=== PATIENT | male | born 1955 | race Caucasian/White ===

== ENCOUNTER → 2021-05-06 | Outpatient (BNVA) | payer BC, SELFPAY | END | disposition home or self-care (01) | PROVIDERS: PCP Family Medicine; Visit Provider Urology | DX: I10 Essential (primary) hypertension (principal) ==

== ENCOUNTER → 2024-07-26 | Outpatient (CLI) | payer MEDICARE, BC, SELFPAY ==
[2024-07-26 16:35] LABS: Basophils % (Auto) 1 % (0-2.5); Eosinophils # (Auto) 0.3 Thou/mm3 (0.0-0.5); Eosinophils % (Auto) 6 % (0-10); Hematocrit 37.2 % (41.0-53.0); Hemoglobin 12.5 g/dL (13.5-16.0); Immature Granulocytes % (Auto) 0 % (0-0); Immature Granulocytes Auto 0.02 Thou/mm3 (0.00-0.00); Lymphocytes # (Auto) 0.9 Thou/mm3 (1.0-4.8); Lymphocytes % (Auto) 16 % (10-50); Mean Corpuscular HGB Conc 33.6 g/dl (31.0-37.0); Mean Corpuscular Hemoglobin 30.6 pg (25.0-35.0); Mean Corpuscular Volume 91 fL (80-100); Monocytes # (Auto) 0.5 Thou/mm3 (0.0-0.8); Monocytes % (Auto) 9 % (0-12); Neutrophils # (Auto) 3.6 Thou/mm3 (1.8-7.7); Neutrophils % (Auto) 68 % (37-80); Nucleated Red Blood Cell % 0 /100 WBC (0); Platelet Count 210 Thou/mm3 (140-440); Red Blood Count 4.09 Miln/mm3 (4.50-5.90); White Blood Count 5.3 Thou/mm3 (3.8-10.6)
[2024-07-26 16:44] LABS: Prostate Specific Antigen 2.05 ng/mL (0-4.00)
[2024-07-26 16:46] LABS: Alanine Aminotransferase 21 U/L (10-49); Albumin, Serum 4.8 gm/dL (3.4-4.8); Albumin/Globulin Ratio 2.4 (1.2-2.2); Alkaline Phosphatase 151 U/L (46-116); Anion Gap 6 (7-16); Aspartate Amino Transferase 17 U/L (0-34); BUN/Creatinine Ratio 21 Ratio (12-20); Bilirubin,Total 0.8 mg/dL (0.3-1.2); Blood Urea Nitrogen 23 mg/dL (9-23); Calcium 9.8 mg/dL (8.3-10.6); Calcium (Corrected) 9.8 mg/dL (8.5-10.1); Carbon Dioxide 25.2 mMol/L (20.0-31.0); Chloride 107 mMol/L (98-107); Creatinine (Component) 1.1 mg/dL (0.6-1.3); Glucose 102 mg/dL (74-106); Osmolality,Calculated 279 (275-295); Sodium 138 mMol/L (136-145); Total Protein 6.8 gm/dL (5.7-8.2); eGFR > 60 See Note
== END | disposition home or self-care (01) ==
LOC: SCTO 15:18
PROVIDERS: PCP Family Medicine; Referring Provider Nurse Practitioner Family; Visit Provider Nurse Practitioner Family
DX: C61 Malignant neoplasm of prostate (principal)
CPT/HCPCS: 36415; 80053; 84153; 85025

== ENCOUNTER 2024-08-01 13:07 | Outpatient (RCR) | payer MEDICARE, BC, SELFPAY | END 2024-08-11 23:59 | disposition home or self-care (01) | LOC: SCTC 13:07 | PROVIDERS: PCP Family Medicine; Referring Provider Family Medicine; Visit Provider Nurse Practitioner Family | DX: Z51.11 Encounter for antineoplastic chemotherapy (principal); C61 Malignant neoplasm of prostate; R97.21 Rising PSA following treatment for malignant neoplasm of prostate; R59.0 Localized enlarged lymph nodes; Z92.3 Personal history of irradiation; Z90.79 Acquired absence of other genital organ(s); E11.9 Type 2 diabetes mellitus without complications; Z93.2 Ileostomy status; R93.7 Abnormal findings on diagnostic imaging of other parts of musculoskeletal system | CPT/HCPCS: 96372; 96402; 99212; J0897; J9217; G0463 ==

== ENCOUNTER → 2024-08-29 | Outpatient (CLI) | payer MEDICARE, SELFPAY ==
[2024-08-29 10:12] LABS: Basophils % (Auto) 1 % (0-2.5); Eosinophils # (Auto) 0.1 Thou/mm3 (0.0-0.5); Eosinophils % (Auto) 4 % (0-10); Hematocrit 37.2 % (41.0-53.0); Hemoglobin 12.6 g/dL (13.5-16.0); Immature Granulocytes % (Auto) 1 % (0-0); Immature Granulocytes Auto 0.02 Thou/mm3 (0.00-0.00); Lymphocytes # (Auto) 0.5 Thou/mm3 (1.0-4.8); Lymphocytes % (Auto) 15 % (10-50); Mean Corpuscular HGB Conc 33.9 g/dl (31.0-37.0); Mean Corpuscular Hemoglobin 29.9 pg (25.0-35.0); Mean Corpuscular Volume 88 fL (80-100); Monocytes # (Auto) 0.3 Thou/mm3 (0.0-0.8); Monocytes % (Auto) 10 % (0-12); Neutrophils # (Auto) 2.4 Thou/mm3 (1.8-7.7); Neutrophils % (Auto) 70 % (37-80); Nucleated Red Blood Cell % 0 /100 WBC (0); Platelet Count 195 Thou/mm3 (140-440); RDW Standard Deviation 43.8 fL (35.1-43.9); Red Blood Count 4.22 Miln/mm3 (4.50-5.90); White Blood Count 3.4 Thou/mm3 (3.8-10.6)
[2024-08-29 10:31] LABS: Prostate Specific Antigen 1.04 ng/mL (0-4.00)
[2024-08-29 10:35] LABS: Alanine Aminotransferase 18 U/L (10-49); Albumin, Serum 4.7 gm/dL (3.4-4.8); Albumin/Globulin Ratio 2.4 (1.2-2.2); Alkaline Phosphatase 158 U/L (46-116); Anion Gap 6 (7-16); Aspartate Amino Transferase 19 U/L (0-34); BUN/Creatinine Ratio 28 Ratio (12-20); Blood Urea Nitrogen 28 mg/dL (9-23); Carbon Dioxide 29.1 mMol/L (20.0-31.0); Chloride 103 mMol/L (98-107); Glucose 116 mg/dL (74-106); Osmolality,Calculated 282 (275-295); Potassium 4.4 mMol/L (3.4-5.1); Sodium 138 mMol/L (136-145); Total Protein 6.7 gm/dL (5.7-8.2); eGFR > 60 See Note
== END | disposition home or self-care (01) ==
PROVIDERS: PCP Family Medicine; Referring Provider Nurse Practitioner Family; Visit Provider Nurse Practitioner Family
DX: C61 Malignant neoplasm of prostate (principal)
CPT/HCPCS: 36415; 80053; 84153; 85025

== ENCOUNTER 2024-09-04 08:05 | Outpatient (RCR) | payer MEDICARE, SELFPAY ==
--- NOTE | 2024-08-13 14:19 | CTCFLWUP_ITS ---
[facility] [address] [place], [place] [address] FOLLOW-UP NOTE Date: 08/13/2024 MR#: [id number] Name: TAWANDA RUBIN : 1955 Dx: C61 Malignant neoplasm of prostate Identification. Patient with metastatic high-grade prostate CA with intra-abdominal adenopathy Underwent prostatectomy 05/04/2021 and postop XRT 12/21/2021 through 02/11/2022 1640 centigray. Currently on Xtandi and off Lupron. Most recent PSA was 2.05 on 07/26/2024 Recent imaging studies including bone scan PET scan 06/28/2024 and most recently 07/30/2024 MRI of T- spine shows significant T1 and in particular T3 involvement. Patient is having pain across the shoulder blades. Discussed with patient about radiation therapy to the site side effects discussed consent signed. 30 00 cGy to T1-T3 will be planned. Electronically signed by: Claudio Saldaña M.D. 08/13/2024 2:17 PM
--- NOTE | 2024-08-13 14:20 | CTCTXPLN_ITS ---
[facility] [place] [address] [place], [place] [address] Physician Clinical Treatment Planning Note Date of Service: 08/13/2024 Name: TAWANDA RUBIN : 1955 The patient has agreed to proceed with Radiation therapy. Tests and supporting medical records were interpreted to assist in defining the tumor location and extent of disease. Further imaging will be necessary to contour and delineate the volume to which the XRT will be provided. A. Treatment Intent: Palliative B. Modality: 6 MV C. Requested Technique: VMAT D. Treatment Site: T1-T3 E. Critical structures to be contoured on plan: F. In order to accomplish this plan, I am ordering/Prescribing the followin. Simulations (s) will be performed to accomplish a reproducible treatment position, to determine op timal treatment portals/beam arrangements, to design beam modifying devices and verify treatment port als on patient prior to the commencement of Radiation Therapy. T1-T3 2. Devices; for immobilization and beam shaping: Vac-Josh 3. CT Guidance for placement of XRT aparicio Scan area: 4. Portal images Frequency: 5. Invivo transit dose measurement once per week on all VMAT patients. 6. Special Physics Consult Requested for: 7. Other requests: G. Dose Objectives: Palliative Electronically signed by: Claudio Saldaña M.D. 08/13/2024 2:18 PM
--- NOTE | 2024-08-13 14:24 | CTCTXPLNST_ITS ---
1Radiation Oncology Treatment Planning Sheet Name: TAWANDA RUBIN MR#: [id number] : 1955 Dx: C61 Malignant neoplasm of prostate Date of Service: 08/13/2024 Account #: ?? Pt Treatment Intent: curative palliative other: Stage: Procedure CPT # Ordered Spec. Procedure 01943 Abbott Complex (set-up) 95866 C3- T7 (treating T1-T3) 1 Abbott Simple 40286 IMRT Plan 99782 1 MLC Devices VMAT 54330 3 Abbott 3 D 43555 TRTMT dev Complex 80285 vaklok 1 TRTMT dev simple 17036 Basic Marc 96406 6 Special Dosimetry 71955 Spec Physics 65370 Port Films 68477 SRS Cranial/1FX 46094 SBR 5 FX or Less /ex: 5 = 5 fx 20065 IMRT Simple 65088 3000 10 IMRT Complex 24430 IGRT 97506 8 Rad del com 6-10 64780 Rad del com 11- 37029 Cont Med Physics 99783 2 Treatment Planning 70550 1 Rad del com 20 mev 79165 Rad del inter 6-10 59415 Rad del inter 11 52914 Rad del simple 6-10 53400 Rad del simple 11- 51766 Special Port Plan 05165 TRTMT dev inter 92244 Isodose Complex 53076 Isodose simple 15074 Resp Motion Mgmt Simulation 40376 Placement of Fiducial Markers 05141 Electronically Signed By: Claudio Saldaña MD, DABR 08/13/2024 2:22 PM
--- NOTE | 2024-08-15 16:24 | CTCSNOTE_ITS ---
[facility] [address] [place], [place] [address] CT Simulation Note Date: 08/15/2024 MR# [id number] Name: TAWANDA RUBIN : 1955 (A) DIAGNOSIS: C61 Malignant neoplasm of prostate (B) Patient was placed in supine position and used aquaplast for immobilization purposes. (C) CT slices included c spine (D) VMAT Will be needed for maximum sparing of adjacent normal critical structures. (E) Patient tolerated the simulation well and left the room in good condition. Electronically signed by: Claudio Saldaña MD, CHARLIER 08/15/2024 4:22 PM
== END 2024-09-11 23:59 | disposition home or self-care (01) ==
LOC: SCTC 08:05
PROVIDERS: PCP Family Medicine; Referring Provider Family Medicine; Visit Provider Radiology Therapeutic Radiology
DX: Z51.0 Encounter for antineoplastic radiation therapy (principal); Z51.11 Encounter for antineoplastic chemotherapy; C61 Malignant neoplasm of prostate; C79.51 Secondary malignant neoplasm of bone; Z90.79 Acquired absence of other genital organ(s); Z93.2 Ileostomy status; Z79.818 Long term (current) use of other agents affecting estrogen receptors and estrogen levels
CPT/HCPCS: 77014; 77290; 77300; 77301; 77334; 77336; 77338; 77385; 96372; 96402; 99212; 99213; J0897; J9217; G0463

== ENCOUNTER → 2024-09-25 | Outpatient (BNVA) | payer MEDICARE, SELFPAY | END | disposition home or self-care (01) | PROVIDERS: PCP Family Medicine; Referring Provider Family Medicine; Visit Provider Urology | DX: C61 Malignant neoplasm of prostate (principal); C67.9 Malignant neoplasm of bladder, unspecified; Z92.3 Personal history of irradiation; E66.9 Obesity, unspecified; Z68.41 Body mass index [BMI] 40.0-44.9, adult; E78.00 Pure hypercholesterolemia, unspecified; E11.9 Type 2 diabetes mellitus without complications; Z86.73 Personal history of transient ischemic attack (TIA), and cerebral infarction without residual deficits; Z87.442 Personal history of urinary calculi | CPT/HCPCS: 99212; G0463 ==

== ENCOUNTER → 2024-09-25 | Outpatient (CLI) | payer MEDICARE, SELFPAY ==
[2024-09-25 13:41] LABS: Basophils % (Auto) 1 % (0-2.5); Eosinophils # (Auto) 0.2 Thou/mm3 (0.0-0.5); Eosinophils % (Auto) 4 % (0-10); Hematocrit 37.5 % (41.0-53.0); Hemoglobin 12.4 g/dL (13.5-16.0); Immature Granulocytes % (Auto) 1 % (0-0); Immature Granulocytes Auto 0.02 Thou/mm3 (0.00-0.00); Lymphocytes # (Auto) 0.6 Thou/mm3 (1.0-4.8); Lymphocytes % (Auto) 15 % (10-50); Mean Corpuscular HGB Conc 33.1 g/dl (31.0-37.0); Mean Corpuscular Hemoglobin 29.8 pg (25.0-35.0); Mean Corpuscular Volume 90 fL (80-100); Monocytes # (Auto) 0.4 Thou/mm3 (0.0-0.8); Monocytes % (Auto) 10 % (0-12); Neutrophils # (Auto) 2.7 Thou/mm3 (1.8-7.7); Neutrophils % (Auto) 69 % (37-80); Nucleated Red Blood Cell % 0 /100 WBC (0); Platelet Count 185 Thou/mm3 (140-440); RDW Standard Deviation 46.5 fL (35.1-43.9); Red Blood Count 4.16 Miln/mm3 (4.50-5.90)
[2024-09-25 14:00] LABS: Prostate Specific Antigen 0.53 ng/mL (0-4.00)
[2024-09-25 14:02] LABS: Alanine Aminotransferase 17 U/L (10-49); Albumin, Serum 4.6 gm/dL (3.4-4.8); Albumin/Globulin Ratio 2.2 (1.2-2.2); Alkaline Phosphatase 121 U/L (46-116); Anion Gap 7 (7-16); Aspartate Amino Transferase 19 U/L (0-34); BUN/Creatinine Ratio 22 Ratio (12-20); Blood Urea Nitrogen 22 mg/dL (9-23); Calcium 9.4 mg/dL (8.3-10.6); Calcium (Corrected) 9.4 mg/dL (8.5-10.1); Carbon Dioxide 29.1 mMol/L (20.0-31.0); Chloride 100 mMol/L (98-107); Globulin 2.1 gm/dL (2.3-3.5); Glucose 172 mg/dL (74-106); Osmolality,Calculated 279 (275-295); Potassium 4.7 mMol/L (3.4-5.1); Sodium 136 mMol/L (136-145); Total Protein 6.7 gm/dL (5.7-8.2); eGFR > 60 See Note
== END | disposition home or self-care (01) ==
PROVIDERS: PCP Family Medicine; Referring Provider Nurse Practitioner Family; Visit Provider Nurse Practitioner Family
DX: C61 Malignant neoplasm of prostate (principal); C79.51 Secondary malignant neoplasm of bone
CPT/HCPCS: 36415; 80053; 84153; 85025

== ENCOUNTER 2024-10-01 14:54 | Outpatient (RCR) | payer MEDICARE, SELFPAY ==
--- NOTE | 2024-09-19 10:33 | CTCTSUMM_ITS ---
[facility] [address] [place], [place] [address] Treatment Summary Date: 09/19/2024 MR#: [id number] Name: TAWANDA RUBIN : 1955 Dx: C61 Referring Physician: Melo Spears MD (A) Diagnosis: 12/17/2023 [ICD10] C61 Malignant neoplasm of prostate; [ICD10] C61 Malignant neoplasm o f prostate; [ICD10] C79.51 Secondary malignant neoplasm of bone (B) Aim of Treatment: Palliative (C) Concomitant Chemotherapy: No (D) Radiation Dates: Prior treatment to the pelvis postop 6840 cGy in February 2022 Additional ra diotherapy to upper thoracic area as follows 08/21/2024 through 09/04/2024 Treatment Prescription T1-T4 VMAT 10MV 3,000 cGy 10 300 cGy Approved (E) All aparicio were treated using customized MLC Blocks (F) Finding at Discharge: Patient seen for first follow-up on 09/19/2023. Has some residual pain but t olerated treatment generally well. (G) Discharge Instructions and F/U Appt was given: The patient was also advised to continue follow-up with Dr. Ochoa and primary care physician: Electronically signed by: Claudio Saldaña MD, AWILDA 09/19/2024 10:31 AM
== END 2024-10-12 23:59 | disposition home or self-care (01) ==
LOC: SCTC 14:54
PROVIDERS: PCP Family Medicine; Referring Provider Family Medicine; Visit Provider Nurse Practitioner Family
DX: Z51.11 Encounter for antineoplastic chemotherapy (principal); C61 Malignant neoplasm of prostate; C79.51 Secondary malignant neoplasm of bone; Z92.3 Personal history of irradiation; Z79.818 Long term (current) use of other agents affecting estrogen receptors and estrogen levels; Z90.79 Acquired absence of other genital organ(s); Z93.2 Ileostomy status; M54.9 Dorsalgia, unspecified
CPT/HCPCS: 96372; 96402; 99212; J0897; J9217; G0463

== ENCOUNTER → 2024-10-18 | Outpatient (CLI) | payer MEDICARE, SELFPAY ==
--- NOTE | 2024-10-18 10:52 | XR_ITS ---
Examination: Right femur 2 views Technique one AP lateral right femur 2 views Exam date and time: October 18, 2024 1234 hours INDICATIONS: Right femur pain several weeks. FINDINGS: Total right hip arthroplasty. Satisfactory alignment Shaft of the femur intact Extensive dystrophic ossification lateral to the right hip joint IMPRESSION: Extensive dystrophic ossification lateral to the right hip joint
[2024-10-18 13:49] LABS: Basophils % (Auto) 1 % (0-2.5); Eosinophils # (Auto) 0.2 Thou/mm3 (0.0-0.5); Eosinophils % (Auto) 4 % (0-10); Hematocrit 37.4 % (41.0-53.0); Hemoglobin 12.5 g/dL (13.5-16.0); Immature Granulocytes % (Auto) 0 % (0-0); Immature Granulocytes Auto 0.02 Thou/mm3 (0.00-0.00); Lymphocytes # (Auto) 0.5 Thou/mm3 (1.0-4.8); Lymphocytes % (Auto) 12 % (10-50); Mean Corpuscular HGB Conc 33.4 g/dl (31.0-37.0); Mean Corpuscular Hemoglobin 30.1 pg (25.0-35.0); Mean Corpuscular Volume 90 fL (80-100); Monocytes # (Auto) 0.6 Thou/mm3 (0.0-0.8); Monocytes % (Auto) 13 % (0-12); Neutrophils # (Auto) 3.2 Thou/mm3 (1.8-7.7); Neutrophils % (Auto) 70 % (37-80); Nucleated Red Blood Cell % 0 /100 WBC (0); Platelet Count 214 Thou/mm3 (140-440); RDW Standard Deviation 48.7 fL (35.1-43.9); Red Blood Count 4.15 Miln/mm3 (4.50-5.90); White Blood Count 4.5 Thou/mm3 (3.8-10.6)
[2024-10-18 13:59] LABS: B-Type Natriuretic Peptide 48 pg/mL (0-100)
[2024-10-18 14:06] LABS: Alanine Aminotransferase 20 U/L (10-49); Albumin, Serum 4.5 gm/dL (3.4-4.8); Albumin/Globulin Ratio 2.3 (1.2-2.2); Alkaline Phosphatase 117 U/L (46-116); Anion Gap 7 (7-16); Aspartate Amino Transferase 19 U/L (0-34); BUN/Creatinine Ratio 31 Ratio (12-20); Bilirubin,Total 0.9 mg/dL (0.3-1.2); Blood Urea Nitrogen 28 mg/dL (9-23); Calcium 9.6 mg/dL (8.3-10.6); Calcium (Corrected) 9.6 mg/dL (8.5-10.1); Carbon Dioxide 30.4 mMol/L (20.0-31.0); Chloride 102 mMol/L (98-107); Creatinine (Component) 0.9 mg/dL (0.6-1.3); Glucose 94 mg/dL (74-106); Osmolality,Calculated 283 (275-295); Potassium 4.6 mMol/L (3.4-5.1); Sodium 139 mMol/L (136-145); Total Protein 6.5 gm/dL (5.7-8.2); eGFR > 60 See Note
[2024-10-18 14:20] LABS: D-Dimer 408 ng/mL (<600)
== END | disposition home or self-care (01) ==
LOC: CDIM 10:38 → COPL 12:45
PROVIDERS: PCP Family Medicine; Referring Provider Nurse Practitioner Family; Visit Provider Radiology Diagnostic Radiology
DX: M25.851 Other specified joint disorders, right hip (principal); M79.651 Pain in right thigh
CPT/HCPCS: 36415; 73552; 80053; 83880; 85025; 85379

== ENCOUNTER → 2024-10-30 | Outpatient (CLI) | payer MEDICARE, BC, SELFPAY ==
[2024-10-30 15:40] LABS: Basophils % (Auto) 1 % (0-2.5); Eosinophils # (Auto) 0.3 Thou/mm3 (0.0-0.5); Eosinophils % (Auto) 5 % (0-10); Hematocrit 36.1 % (41.0-53.0); Hemoglobin 12.2 g/dL (13.5-16.0); Immature Granulocytes % (Auto) 0 % (0-0); Immature Granulocytes Auto 0.02 Thou/mm3 (0.00-0.00); Lymphocytes # (Auto) 0.6 Thou/mm3 (1.0-4.8); Lymphocytes % (Auto) 11 % (10-50); Mean Corpuscular HGB Conc 33.8 g/dl (31.0-37.0); Mean Corpuscular Hemoglobin 30.3 pg (25.0-35.0); Mean Corpuscular Volume 90 fL (80-100); Monocytes # (Auto) 0.7 Thou/mm3 (0.0-0.8); Monocytes % (Auto) 13 % (0-12); Neutrophils # (Auto) 3.7 Thou/mm3 (1.8-7.7); Neutrophils % (Auto) 70 % (37-80); Nucleated Red Blood Cell % 0 /100 WBC (0); Platelet Count 226 Thou/mm3 (140-440); RDW Standard Deviation 48.7 fL (35.1-43.9); Red Blood Count 4.03 Miln/mm3 (4.50-5.90); White Blood Count 5.3 Thou/mm3 (3.8-10.6)
[2024-10-30 15:54] LABS: Alanine Aminotransferase 18 U/L (10-49); Albumin, Serum 4.4 gm/dL (3.4-4.8); Albumin/Globulin Ratio 2.2 (1.2-2.2); Alkaline Phosphatase 125 U/L (46-116); Anion Gap 8 (7-16); Aspartate Amino Transferase 21 U/L (0-34); BUN/Creatinine Ratio 29 Ratio (12-20); Bilirubin,Total 0.8 mg/dL (0.3-1.2); Blood Urea Nitrogen 29 mg/dL (9-23); Calcium 9.7 mg/dL (8.3-10.6); Calcium (Corrected) 9.7 mg/dL (8.5-10.1); Carbon Dioxide 29.9 mMol/L (20.0-31.0); Chloride 102 mMol/L (98-107); Glucose 111 mg/dL (74-106); Osmolality,Calculated 286 (275-295); Potassium 4.4 mMol/L (3.4-5.1); Sodium 140 mMol/L (136-145); Total Protein 6.4 gm/dL (5.7-8.2); eGFR > 60 See Note
[2024-10-30 15:59] LABS: Ferritin 110 ng/mL (10.5-307.3); Prostate Specific Antigen 0.26 ng/mL (0-4.00); Total Iron Binding Capacity 304 mcg/dL (250-425)
[2024-10-30 16:01] LABS: AFP Non-Pregnant < 1.30 ng/mL (<8.10); Carcinoembryonic Antigen < 0.5 ng/mL (0.0-5.0); Folate 13.92 ng/mL (>5.38); Vitamin B12 283 pg/mL (211-911)
[2024-10-30 16:09] LABS: Iron 53 mcg/dL (65-175); Percent Iron Saturation 17 % (20-55); Unsaturated Iron Binding 251 (225-295)
== END | disposition home or self-care (01) ==
LOC: COPL 14:17
PROVIDERS: PCP Family Medicine; Referring Provider Nurse Practitioner Family; Visit Provider Nurse Practitioner Family
DX: M79.651 Pain in right thigh (principal); C67.9 Malignant neoplasm of bladder, unspecified; C61 Malignant neoplasm of prostate; C79.51 Secondary malignant neoplasm of bone
CPT/HCPCS: 36415; 80053; 82105; 82378; 82607; 82728; 82746; 83540; 83550; 84153; 85025

== ENCOUNTER 2024-11-01 08:36 | Outpatient (RCR) | payer MEDICARE, BC, SELFPAY | END 2024-11-09 23:59 | disposition home or self-care (01) | LOC: SCTC 08:36 | PROVIDERS: PCP Family Medicine; Referring Provider Family Medicine; Visit Provider Nurse Practitioner Family | DX: Z51.11 Encounter for antineoplastic chemotherapy (principal); C61 Malignant neoplasm of prostate; C79.51 Secondary malignant neoplasm of bone; Z90.79 Acquired absence of other genital organ(s); Z79.818 Long term (current) use of other agents affecting estrogen receptors and estrogen levels; M25.551 Pain in right hip; Z96.641 Presence of right artificial hip joint | CPT/HCPCS: 96402; 99212; J9217; G0463 ==

== ENCOUNTER → 2024-11-20 | Outpatient (CLI) | payer MEDICARE, BC, SELFPAY ==
--- NOTE | 2024-11-20 12:30 | XR_ITS ---
Examination: Bone scan whole body, radioisotope Date and time of exam: November 20, 2024 1220 hrs. Comparison 05/16/2024 Indications: Diagnosis malignant neoplasm prostate Technique: Study has been performed with intravenous administration of 23.3 mci 99M technetium MDP. Anterior, posterior whole body images are obtained. Images have been obtained including the lower extremities. Findings: Again noted increased isotope accumulation T3 Isotope accumulation otherwise symmetrical Impression: Increased isotope accumulation T3 again noted
== END | disposition home or self-care (01) ==
PROVIDERS: PCP Family Medicine; Referring Provider Nurse Practitioner Family; Visit Provider Nurse Practitioner Family
DX: R93.7 Abnormal findings on diagnostic imaging of other parts of musculoskeletal system (principal); C61 Malignant neoplasm of prostate; C79.51 Secondary malignant neoplasm of bone
CPT/HCPCS: 78306; A9503

== ENCOUNTER → 2024-11-29 | Outpatient (CLI) | payer MEDICARE, BC, SELFPAY ==
[2024-11-29 12:07] LABS: Basophils % (Auto) 1 % (0-2.5); Eosinophils # (Auto) 0.3 Thou/mm3 (0.0-0.5); Eosinophils % (Auto) 6 % (0-10); Hematocrit 35.8 % (41.0-53.0); Hemoglobin 11.9 g/dL (13.5-16.0); Immature Granulocytes % (Auto) 0 % (0-0); Lymphocytes # (Auto) 0.5 Thou/mm3 (1.0-4.8); Lymphocytes % (Auto) 9 % (10-50); Mean Corpuscular HGB Conc 33.2 g/dl (31.0-37.0); Mean Corpuscular Hemoglobin 30.3 pg (25.0-35.0); Mean Corpuscular Volume 91 fL (80-100); Monocytes # (Auto) 0.7 Thou/mm3 (0.0-0.8); Monocytes % (Auto) 13 % (0-12); Neutrophils # (Auto) 3.8 Thou/mm3 (1.8-7.7); Neutrophils % (Auto) 72 % (37-80); Nucleated Red Blood Cell % 0 /100 WBC (0); Platelet Count 222 Thou/mm3 (140-440); RDW Standard Deviation 48.2 fL (35.1-43.9); Red Blood Count 3.93 Miln/mm3 (4.50-5.90); White Blood Count 5.3 Thou/mm3 (3.8-10.6)
[2024-11-29 12:33] LABS: Glucose Estimated Average 131 mg/dL (80-131); Hemoglobin A1C 6.2 % Hgb (4.8-6.0)
[2024-11-29 12:39] LABS: Ferritin 119 ng/mL (10.5-307.3); Iron 43 mcg/dL (65-175); Percent Iron Saturation 14 % (20-55); Prostate Specific Antigen 0.23 ng/mL (0-4.00); Total Iron Binding Capacity 295 mcg/dL (250-425); Unsaturated Iron Binding 252 (225-295)
[2024-11-29 12:40] LABS: Folate 14.88 ng/mL (>5.38); Vitamin B12 265 pg/mL (211-911)
[2024-11-29 12:45] LABS: Alanine Aminotransferase 18 U/L (10-49); Albumin, Serum 4.5 gm/dL (3.4-4.8); Alkaline Phosphatase 107 U/L (46-116); Anion Gap 9 (7-16); Aspartate Amino Transferase 21 U/L (0-34); BUN/Creatinine Ratio 25 Ratio (12-20); Bilirubin,Total 0.8 mg/dL (0.3-1.2); Blood Urea Nitrogen 25 mg/dL (9-23); Calcium 9.9 mg/dL (8.3-10.6); Calcium (Corrected) 9.9 mg/dL (8.5-10.1); Chloride 101 mMol/L (98-107); Globulin 2.2 gm/dL (2.3-3.5); Glucose 107 mg/dL (74-106); Osmolality,Calculated 280 (275-295); Potassium 3.9 mMol/L (3.4-5.1); Sodium 138 mMol/L (136-145); Total Protein 6.7 gm/dL (5.7-8.2); eGFR > 60 See Note
== END | disposition home or self-care (01) ==
LOC: SCTO 11:28
PROVIDERS: PCP Family Medicine; Referring Provider Nurse Practitioner Family; Visit Provider Nurse Practitioner Family
DX: C61 Malignant neoplasm of prostate (principal); C79.51 Secondary malignant neoplasm of bone; E11.9 Type 2 diabetes mellitus without complications
CPT/HCPCS: 36415; 80053; 82607; 82728; 82746; 83036; 83540; 83550; 84153; 85025

== ENCOUNTER → 2024-12-03 | Outpatient (CLI) | payer MEDICARE, BC, SELFPAY ==
--- NOTE | 2024-12-03 13:00 | XR_ITS ---
Examination: MRI right femur, without contrast Date and time of exam: December 03, 2024 at 1258 hours INDICATIONS: Diagnosis malignant neoplasm prostate, numbness pain and paresthesias in the right thigh, painful to touch, positive nuclear medicine bone scan on November 20, 2024 Technique: Multiple axial sagittal and coronal images of the right femur have been obtained with the Siemens high-resolution 1.5 Henny MRI scanner. Images obtained include T2-weighted fat-suppressed sagittal sections, TR 3500, TE 46, T2 weighted coronal fat suppressed images, TR 3050, TE 84, T2-weighted transverse fat suppressed images, TR 3260, TE 63, proton density transverse images, TR 4720 TE 46, and T1 weighted coronal images, TR 560, TE 13. Findings: No john cortical bone destruction or permeative soft tissue mass No soft tissue mass in the muscles or subcutaneous fatty tissue Magnetic susceptibility artifact secondary to the right hip arthroplasty IMPRESSION: No findings diagnostic for osseous metastatic disease, however, recommend repeating this study post intravenous contrast
[2024-12-03 13:12] VITALS: PULSE 84; RESP 20; O2SAT 94
[2024-12-03 13:15] VITALS: BP 110/82; PULSE 84; RESP 20; O2SAT 94
[2024-12-03 13:20] VITALS: BP 99/50; PULSE 84; RESP 20; O2SAT 92
[2024-12-03 13:25] VITALS: PULSE 84
--- NOTE | 2024-12-03 13:27 | PC.NURSE ---
1312 patient scheduled for MRI rt lower extremity and has pacemaker, will monitor patient in MRI
[2024-12-03 13:30] VITALS: PULSE 84
--- NOTE | 2024-12-03 13:37 | PC.NURSE ---
1331 report given to Jana CASTILLO to monitor patient for the rest of the procedure. HR 84
[2024-12-03 13:43] VITALS: BP 110/54; PULSE 85; RESP 18; O2SAT 98
== END | disposition home or self-care (01) ==
PROVIDERS: PCP Nurse Practitioner Family; Referring Provider Nurse Practitioner Family; Visit Provider Nurse Practitioner Family
DX: M61.451 Other calcification of muscle, right thigh (principal); M79.651 Pain in right thigh
CPT/HCPCS: 73718

== ENCOUNTER 2024-12-04 08:26 | Outpatient (RCR) | payer MEDICARE, BC, SELFPAY ==
--- NOTE | 2024-11-13 08:53 | CTCFLWUP_ITS ---
[facility] [address] [place], [place] [address] FOLLOW-UP NOTE Date: 11/13/2024 MR#: [id number] Name: TAWANDA RUBIN : 1955 Dx: C61 Malignant neoplasm of prostate Identification. Patient with metastatic high-grade prostate CA with intra- abdominal adenopathy. Underwent prostatectomy 05/04/2021 and postop XRT 12/21/2021 through 02/11/2022 6480 cGy Currently on Lupron. Xtandi Xgeva.. 07/30/2024 MRI showed met disease T1-T3 Additional radiotherapy was given upper T-spine 3000 cGy completed 09/04/2024. Most recent PSA 10/30/2024 0.26. Using only occasional opioids because of concern about side effects particularly constipation. Having pain in the right hip femur region. Bone scan pending. Show reeval patient in about 3 months. Electronically signed by: Claudio Saldaña M.D. 11/13/2024 8:50 AM
--- NOTE | 2024-12-04 02:08 | CTCFLWUP_ITS ---
Patient: TAWANDA ANTONIO : 1955 Page 7 of 7 FOLLOW UP NOTE DATE OF SERVICE: 12/03/2024 NAME: TAWANDA ANTONIO ACCOUNT: [id number] : 1955 AGE: 68 INTERVAL HISTORY: c/o fatigue . also pain over known T3 area and hip . tolerating treatment well . ONCOLOGY HISTORY: 08/22/2024: patient restarted Xtandi on 08/02/2024. Patient received Xgeva on 08/01/2024. Currently on monthly Lupron injections as well. Patient started radiation to T1 T3 today. Only complaint is feeling tired. Patient reports good appetite. INTERVAL HISTORY: PET/CT done on 06/28/2024 showed osseous metastatic disease involving the entire T3 vertebral body. Patient reports his back feels ?achy? denies numbness to the legs or radiating pain. 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 HISTORY: Tawanda Antonio is a 68-year-old ENG speaking male with history of diabetes, hyperlipidemia has the following oncology history. 02/27/2019: PSA 0.6. 07/22/2020: PSA 5.76. 12/16/2020: Prostate biopsy was performed for elevated PSA of 5.6. Biopsy showed Shelbie grade 10 prostatic adenocarcinoma in multiple cores. 12/26/2020: Mr. Antonio had transurethral resection of the bladder and prostate tumor. 01/16/2021: PSA 14.11. 01/22/2021: Patient received Lupron 7.5 mg. He was also started on Casodex. 02/23/2021: Patient received 7.5 mg Lupron again. 02/16/2021: Bone scan? 03/25/2021: Patient received third dose of Lupron 7.5 mg IM. 05/04/2021: Mr. Antonio underwent robotic radical cystoscopy prostatectomy with pelvic lymph node dissection and intracorporeal ileal conduit placement. it was staged as YPT4N1 disease. PSA trend: 03/23/2021: PSA less than 0.10. 06/15/2021: PSA less than 0.10. 07/27/2021: PSA 0.11. 10/21/2021: PSA 0.85. 10/14/2021: Urogram CT? 11/19/2021: PSA 1.66. 12/11/2021: Bone scan? 12/21/2021: Mr. Antonio is started on radiation therapy to the prostate bed. 01/29/2022: PSA 9.52. 02/11/2022: Patient completed radiation therapy to the prostate bed. He received 6840 cGy radiation therapy in 38 fractions. 05/13/2022: PSA 29.17. 06/10/2022: Bone scan? 06/11/2022: PET/CT scan? 06/15/2022: PSA 26.70. 06/17/2022: CT scan of the abdomen and pelvis with IV contrast? 06/21/2022: Mr. Antonio stopped taking Xtandi 160 mg p.o. daily in addition to Lupron. 08/09/2022: PSA 0.31 09/02/2022: PSA less than 0.10. 12/31/2022: PSA less than 0.10. 06/02/2023: PSA less than 0.10 09/01/2023: PET/CT 10/24/2023: Chest x-ray 10/24/2023: PSA less than 0.10 02/03/2024: PSA 0.19 06/20/2024: PSA 1.42 06/28/2024: PET/CT-osseous metastatic disease involving the entire T3 vertebral body 11/20/2024 bone scan --Increased isotope accumulation T3 again noted MRI DIAGNOSIS: Metastatic (M1a) high-grade prostate cancer with intra-abdominal lymphadenopathy (06/17/2022). S/p prostatectomy (05/04/2021) S/p radiation therapy to the prostate bed (12/21/2021 - 02/11/2022) S/p ileostomy. Currently on monthly Lupron Was on Xtandi along with Lupron since (06/2022-09/2023). DATE OF DIAGNOSIS: 12/16/2020 STAGE/TNM: [id number] (05/05/2021) TREATMENT HISTORY: Care?Plan Start?Date Cycle Day Intent Lupron?22.5?mg?q?3?mon 06/21/2022 1 90 Palliative Lupron?7.5?mg 06/21/2022 1 30 Palliative Xgeva?120?mg?q?monthly?for?3?months,?followed?by?q?3?months 07/19/2024 1 90 Palliative Lupron?7.5?mg 06/26/2024 1 30 Palliative HISTORY OF PRESENT ILLNESS: OTHER MEDICAL HISTORY/CONDITIONS: Diabetes type 2 FAMILY HISTORY: SOCIAL HISTORY: MEDICATIONS: 1. atorvastatin - 40 mg Daily 2. Citracal + D Slow Release - 600 mg-12.5 mcg (500 unit) 1 tab one tab po twice a day 3. gabapentin - 300 mg 2 Capsule Twice a Day 4. HYDROcodone-acetaminophen - 10-325 mg 1 tab q8 5. Lasix - 20 mg 1 tab As needed 6. ondansetron - 8 mg 1 tab twice a day 7. PROzac - 20 mg 1 Capsule Daily 8. traZODone - 50 mg 1 tab Twice a Day 9. Xtandi - 40 mg 4 Capsule Daily 10. Xtandi - 40 mg 4 tab Daily Medications Last Reconciled by Cari Adams MA on 12/03/2024 ALLERGIES: [id number] REVIEW OF SYSTEMS: A complete 14-point review of systems was performed and is negative except as noted in interval history. PHYSICAL EXAMINATION: VITAL SIGNS: Temperature?98.2, B/P?134/79, Oxygen?Saturation?93% Weight?302?lbs (Change?since?11/13/24:?-9?lbs) PAIN: 3 - Between mild and moderate pain ECOG Performance Status: 2 - Symptomatic; ambulatory; capable of self-care; >50% of waking hrs. not in bed GENERAL APPEARANCE: Appears well, in no apparent distress, appropriately interactive. HEENT: Normocephalic, normal conjunctiva, normal hearing, lips without lesions, CARDIOVASCULAR: Patient has a pacemaker. PULMONARY: Normal respiratory effort, no respiratory distress or use of accessory muscles, speaking in full sentences, no tachypnea. EXTREMITIES: No cyanosis. SKIN: Normal skin appearance. NEUROLOGIC: Alert and ORIENTED x4. PSHYCHIATRIC: Appropriate affect, mood normal, behavior normal, intact thought and speech. LABORATORY DATA: I have personally reviewed and interpreted each of the patient?s relevant lab tests, abnormal findings are below: Date 10/30/24 11/29/24 ??WHITE?BLOOD?COUNT?(Thou/mm3) ? 5.3 ??RED?BLOOD?COUNT?(Miln/mm3) ? 3.93?L ??HEMOGLOBIN?(gm/dl) ? 11.9?L ??HEMATOCRIT?(%) ? 35.8?L ??PLATELET?COUNT?(Thou/mm3) ? 222 ??NEUTROPHILS?%,?AUTO?(%) ? 72 ??LYMPH?%,?AUTO?(%) ? 9?L ??NEUTROPHILS,?AUTO?(Thou/mm3) ? 3.8 ??GLUCOSE,RANDOM?(mg/dL) 111?H 107?H ??BLOOD?UREA?NITROGEN?(mg/dL) 29?H 25?H ??CREATININE?(mg/dL) 1.00 1.00 ??SODIUM?(mmol/L) 140 138 ??POTASSIUM?(mmol/L) 4.4 3.9 ??CHLORIDE?(mmol/L) 102 101 ??CrCl?(CandG)?(ml/min) 103.87 103.87 ??AST/SGOT?(Unit/L) 21 21 ??ALT/SGPT?(Unit/L) 18 18 ??ALKALINE?PHOSPHATASE?(Unit/L) 125?H 107 ??BILIRUBIN,?TOTAL?(mg/dL) 0.8 0.8 ??PROTEIN?TOTAL?(gm/dl) 6.4 6.7 ??ALBUMIN,?SERUM?(gm/dl) 4.4 4.5 ??GLOBULIN?(gm/dl) 2.0?L 2.2?L ??ALBUMIN/GLOBULIN?RATIO 2.2 2.0 ??CALCIUM,?SERUM?(mg/dL) 9.7 9.9 ??CALCIUM?SERUM?(CORRECTED)?(mg/dL) 9.7 9.9 ??TOTAL?IRON?BINDING?CAP?(S*)?(mcg/dL) ? 295 ??UNBOUND?IBC?(mcg/dL) ? 252 ASSESSMENT/PLAN: 1. Metastatic (M1a) high-grade prostate cancer with intra-abdominal lymphadenopathy (06/17/2022). S/p prostatectomy (05/04/2021) Treated with neoadjuvant antihormonal therapy with Lupron and Casodex followed by radical prostatectomy as described above. Pathology showed YPT4N1 disease. S/p radiation therapy to the prostate bed (12/21/2021 - 02/11/2022) S/p ileostomy. Currently on monthly Lupron 7.5 mg IM Was on Xtandi along with Lupron since (06/2022-09/2023). Patient self discontinued Xtandi, reports he wanted a break. Restarted Xtandi 160 mg p.o. daily, 08/02/2024 MRI of spine showed osseous metastatic disease involving T1 and T3, no tumor impingement upon thoracic cord, 07/30/2024. Started radiation to T1 T3, (08/22/2024-), completed 10 radiation treatments, following up with Dr. Saldaña PSA 0.53, hemoglobin 12.4, 09/25/2024, PSA level is decreasing Patient taking Butler for pain, following up with Dr. Saldaña Patient recently complaining of right hip pain, history of osteoarthritis to right hip and right hip replacement. X-ray of right femur done 10/18/2024 showed extensive dysmorphic ossification lateral to the right hip joint, satisfactory alignment, total right hip arthroplasty. Last bone scan was done on 05/2024 showed uptake in T3 level. 12/03/2024 MRI is negative Continue Xtandi Continue on monthly Lupron. Continue Xgeva 120 mg subcutaneous every 3 months, started 08/01/2024. Continue Citracal p.o. 1 tablet twice a day Will do work up for fatigue B12 is very low even though patient takes oral supplement Will start b12 ORDERS: Order # Description [id number] + PSA [id number] Vitamin B-12 + Ferritin + Iron Panel + Folic Acid; Serum [id number] Comprehensive Metabolic Panel - 12 + CBC with Auto Diff [id number] MD Follow Up 2 Months RETURN TO CLINIC: 2 BILLING AND COMPLIANCE: I reviewed external records from providers outside my specialty as summarized above. I spent a total of 50 minutes on this patient?s care on the day of their visit excluding time spent related to any billed procedures. This time includes time spent with the patient as well as time spent documenting in the medical record, reviewing patients records and tests, obtaining history, placing orders, communicating with other healthcare professionals, counseling the patient, family or caregiver, and/or care coordination for the diagnoses above. Electronically Signed by: {Object.Sanct_ID*[email or web address]@M}, {Object.Sanct_ID*PnP.Suffix@U} D: {Object.Sanct_Date} T: {Object.Sanct_Time} CC: PCP: Ashley Foley Referring: Ashley Foley This document was completed utilizing speech recognition software. Grammatical errors, random word insertions, pronoun errors, and incomplete sentences are an occasional consequence of this system due to software limitations, ambient noise, and hardware issues. Any formal questions or concerns about the content, text or information contained within the body of this dictation should be directly addressed to the provider for clarification.
== END 2024-12-10 23:59 | disposition home or self-care (01) ==
LOC: SCTC 08:26
PROVIDERS: PCP Family Medicine; Referring Provider Family Medicine; Visit Provider Radiology Therapeutic Radiology
DX: Z51.11 Encounter for antineoplastic chemotherapy (principal); C61 Malignant neoplasm of prostate; C79.51 Secondary malignant neoplasm of bone; Z90.79 Acquired absence of other genital organ(s); Z92.3 Personal history of irradiation; M16.11 Unilateral primary osteoarthritis, right hip; Z96.641 Presence of right artificial hip joint; Z79.818 Long term (current) use of other agents affecting estrogen receptors and estrogen levels; E53.8 Deficiency of other specified B group vitamins; R59.0 Localized enlarged lymph nodes
CPT/HCPCS: 96368; 96372; 96402; 99212; 99213; J3420; J9217; G0463

== ENCOUNTER → 2024-12-25 | Outpatient (BNVA) | payer MEDICARE, BC, SELFPAY | END | disposition home or self-care (01) | PROVIDERS: PCP Family Medicine; Referring Provider Family Medicine; Visit Provider Urology | DX: C61 Malignant neoplasm of prostate (principal); E11.9 Type 2 diabetes mellitus without complications; I25.10 Atherosclerotic heart disease of native coronary artery without angina pectoris; Z95.5 Presence of coronary angioplasty implant and graft; E66.9 Obesity, unspecified; Z68.39 Body mass index [BMI] 39.0-39.9, adult; Z86.73 Personal history of transient ischemic attack (TIA), and cerebral infarction without residual deficits; I10 Essential (primary) hypertension; E78.00 Pure hypercholesterolemia, unspecified; Z87.442 Personal history of urinary calculi | CPT/HCPCS: 99212; G0463 ==

== ENCOUNTER → 2024-12-31 | Outpatient (CLI) | payer MEDICARE, BC, SELFPAY ==
[2024-12-31 13:48] LABS: Basophils # (Auto) 0.1 Thou/mm3 (0.0-0.2); Basophils % (Auto) 1 % (0-2.5); Eosinophils # (Auto) 0.3 Thou/mm3 (0.0-0.5); Eosinophils % (Auto) 7 % (0-10); Hematocrit 34.6 % (41.0-53.0); Hemoglobin 11.8 g/dL (13.5-16.0); Immature Granulocytes % (Auto) 0 % (0-0); Immature Granulocytes Auto 0.01 Thou/mm3 (0.00-0.00); Lymphocytes # (Auto) 0.5 Thou/mm3 (1.0-4.8); Lymphocytes % (Auto) 11 % (10-50); Mean Corpuscular HGB Conc 34.1 g/dl (31.0-37.0); Mean Corpuscular Hemoglobin 30.4 pg (25.0-35.0); Mean Corpuscular Volume 89 fL (80-100); Monocytes # (Auto) 0.6 Thou/mm3 (0.0-0.8); Monocytes % (Auto) 12 % (0-12); Neutrophils # (Auto) 3.2 Thou/mm3 (1.8-7.7); Neutrophils % (Auto) 68 % (37-80); Nucleated Red Blood Cell % 0 /100 WBC (0); Platelet Count 217 Thou/mm3 (140-440); RDW Standard Deviation 43.9 fL (35.1-43.9); Red Blood Count 3.88 Miln/mm3 (4.50-5.90); White Blood Count 4.7 Thou/mm3 (3.8-10.6)
[2024-12-31 13:58] LABS: Prostate Specific Antigen 0.22 ng/mL (0-4.00)
[2024-12-31 14:03] LABS: Alanine Aminotransferase 13 U/L (10-49); Albumin, Serum 4.3 gm/dL (3.4-4.8); Alkaline Phosphatase 99 U/L (46-116); Anion Gap 6 (7-16); Aspartate Amino Transferase 18 U/L (0-34); BUN/Creatinine Ratio 25 Ratio (12-20); Bilirubin,Total 0.7 mg/dL (0.3-1.2); Blood Urea Nitrogen 25 mg/dL (9-23); Calcium 9.4 mg/dL (8.3-10.6); Calcium (Corrected) 9.4 mg/dL (8.5-10.1); Chloride 102 mMol/L (98-107); Globulin 2.2 gm/dL (2.3-3.5); Glucose 115 mg/dL (74-106); Osmolality,Calculated 279 (275-295); Potassium 4.1 mMol/L (3.4-5.1); Sodium 137 mMol/L (136-145); Total Protein 6.5 gm/dL (5.7-8.2); eGFR > 60 See Note
== END | disposition home or self-care (01) ==
LOC: SCTO 12:58
PROVIDERS: PCP Family Medicine; Referring Provider Internal Medicine Hematology & Oncology; Visit Provider Internal Medicine Hematology & Oncology
DX: C61 Malignant neoplasm of prostate (principal)
CPT/HCPCS: 36415; 80053; 84153; 85025

== ENCOUNTER 2025-01-02 09:34 | Outpatient (RCR) | payer MEDICARE, BC, SELFPAY | END 2025-01-09 23:59 | disposition home or self-care (01) | LOC: SCTC 09:34 | PROVIDERS: PCP Family Medicine; Referring Provider Family Medicine; Visit Provider Radiology Therapeutic Radiology | DX: Z51.11 Encounter for antineoplastic chemotherapy (principal); C61 Malignant neoplasm of prostate; C79.51 Secondary malignant neoplasm of bone; Z90.79 Acquired absence of other genital organ(s); Z79.818 Long term (current) use of other agents affecting estrogen receptors and estrogen levels; Z92.3 Personal history of irradiation | CPT/HCPCS: 96372; 96402; J0897; J3420; J9217 ==

== ENCOUNTER → 2025-01-17 | Outpatient (CLI) | payer MEDICARE, BC, SELFPAY ==
--- NOTE | 2025-01-17 13:44 | XR_ITS ---
Examination: Lumbar spine, 5 views Technique: Lumbar spine AP, lateral, coned lateral lower lumbar spine, bilateral obliques 5 views Exam date and time: January 17, 2025 1357 hours INDICATIONS: Low back pain beginning 4 months ago radiating down both legs FINDINGS: Lumbar levoscoliosis 10 degrees Bilateral hip arthroplasties with satisfactory alignment Diffuse moderate to advanced facet arthropathy No acute lumbar fracture Chronic mild osteoporotic compression T12 Prominent lumbar spondylosis Diffuse lumbar disc narrowing, advanced L2-L3, L3-L4 IMPRESSION: Diffuse lumbar disc narrowing, advanced L2-L3, L3-L4
== END | disposition home or self-care (01) ==
LOC: CDIM 13:09
PROVIDERS: PCP Family Medicine; Referring Provider Orthopaedic Surgery; Visit Provider Orthopaedic Surgery
DX: M48.061 Spinal stenosis, lumbar region without neurogenic claudication (principal)
CPT/HCPCS: 72110

== ENCOUNTER 2025-02-01 16:31 | Emergency (ER) | payer MEDICARE, BC, SELFPAY ==
[2025-02-01] VITALS (14 sets, daily range): BP systolic 144–157; BP diastolic 64–86; PULSE 14–88; RESP 15–24; TEMP 36.5–36.9; O2SAT 89–98; BMI 40.2
--- NOTE | 2025-02-01 16:46 | XR_ITS ---
Examination: CT brain head without contrast. 2-D sagittal coronal reconstructions Date and time of exam:February 01, 2025 1712 hours INDICATIONS: Patient fell today with injury to head, head pain CTDI: vol (mGy):59 DLP: (mGycm):1291 Technique: Multiple CT axial sections of the brain have been obtained, 5 mm slice thickness. Contrast has not been administered. 2-D sagittal, coronal reconstructions have been obtained Low dose protocols were performed. One or more of the following dose reduction techniques were used; automated exposure control, adjustment of the mA and/or KV according to patient size, use of iterative reconstruction technique. Findings: No significant ventricular enlargement. Intra-axial or extra-axial hemorrhage density is not seen. No mass effect or midline shift Basal cisterns are not remarkable. Fourth ventricle is midline. Cranial vault intact. Impression: Negative for acute hemorrhage, mass effect or midline shift
--- NOTE | 2025-02-01 16:46 | XR_ITS ---
Examination: CT cervical spine without contrast 2-D sagittal reconstructions 2-D coronal reconstructions 3-D reconstructions. Exam date and time:February 01, 2025 1712 hours INDICATIONS: Patient fell today with injury to the neck, neck pain CTDI 12.1 DLP: (mGycm) 322 Technique: Multiple 2 mm axial sections of the cervical spine have been obtained. The coronal and sagittal reconstructions have been obtained. 3-D reconstructions have been obtained. Low dose protocols were performed. One or more of the following dose reduction techniques were used; automated exposure control, adjustment of the mA and/or KV according to patient size, use of iterative reconstruction technique. Findings: Axial sections demonstrate intact base of the skull. C1 exhibit satisfactory relationship to the odontoid. No acute cervical vertebral body fracture seen. Alignment posterior spinous processes satisfactory. Impression: No acute cervical fracture.
--- NOTE | 2025-02-01 16:46 | XR_ITS ---
Examination: CT thoracic spine, without contrast. 2-D sagittal reconstructions. 2-D coronal reconstructions. 3-D reconstructions. Date and time of exam:February 01, 2025 1711 hours INDICATIONS: Patient fell today with injury to the upper back, upper back pain CTDI: vol (mGy):51 DLP: (mGycm):2100 Technique: Multiple 1.25 mm axial sections of the thoracic spine have been obtained. 2-D sagittal and coronal reconstructions have been obtained. 3-D reconstructions have been obtained. Low dose protocols were performed. One or more of the following dose reduction techniques were used; automated exposure control, adjustment of the mA and/or KV according to patient size, use of iterative reconstruction technique. Findings: Adequate alignment vertebral bodies No thoracic vertebral body compression fracture Osteoblastic metastasis T3 again noted, please see the MRI thoracic spine report July 30, 2024 IMPRESSION: No acute thoracic fracture Osteoblastic metastasis replaces the T3 vertebral body, please see the MRI thoracic spine report July 30, 2024
[2025-02-01] MEDS: KETOROLAC INJ 60 MG/2 ML VIAL 15 MG IM (16:58)
--- NOTE | 2025-02-01 17:08 | PD.EDHEAD ---
ED Head Injury RME/HPI General Chief complaint: Head Injury Stated complaint: HEAD PAIN Time Seen by Provider: 02/01/25 16:35 Arrival date/time: 02/01/25 16:31 Limitations: no limitations RME / HPI RME / HPI Narrative: 69 year old male with history of prostate cancer currently undergoing treatment, s/p prostatectomy, multiple prior back surgeries, hypertension, and diabetes, who presents to the ED BIBA from home for evaluation of head and back pain following a head injury earlier today. The patient reports that he was walking when he accidentally struck his head on a wooden beam. On impact, he experienced a sharp, ?shock like? pain radiating down his back. He also describes a burning sensation in his right leg and reports that his right arm is ?acting bad.? He notes that he has had pre-existing issues with his right arm and leg related to his multiple back surgeries. Patient denies any other associated symptoms or additional injuries. The patient denies loss of consciousness and reports no use of blood thinners. Related Data Home Medications ?Medication ?Instructions ?Recorded ?Confirmed metformin 500 mg tablet 500 mg PO BIDAC #0 tabs 08/05/15 12/25/24 (Glucophage) furosemide 20 mg tablet (Lasix) 20 mg PO QDAY 10/26/22 12/25/24 gabapentin 300 mg capsule 300 mg PO BID 04/25/23 12/25/24 atorvastatin 40 mg tablet 40 mg PO DAILY 05/13/23 12/25/24 enzalutamide 40 mg tablet (Xtandi) 40 mg PO DAILY 05/13/23 12/25/24 trazodone 50 mg tablet 50 mg PO QHSPRN PRN Sleep 05/13/23 12/25/24 Held on 05/13/23. Instructions: Resume on 05/14/23. Previous Rx's ?Medication ?Instructions ?Recorded amoxicillin 875 mg-potassium 1 tab PO Q12H #20 tabs 05/06/24 clavulanate 125 mg tablet Allergies Allergy/AdvReac Type Severity Reaction Status Date / Time bacitracin Allergy Mild Rash Verified 12/25/24 09:32 gramicidin D Allergy Mild Rash Verified 12/25/24 09:32 neomycin Allergy Mild Rash Verified 12/25/24 09:32 Review of Systems Review of Systems Narrative Review of Systems: GEN: No fever, no chills EYES: No discharge, no visual changes, no pain HEENT: +head pain s/p injury. No ear pain, no congestion, no sore throat PULM: No shortness of breath, no cough, no congestion CV: No chest pain, no palpitations GI: No nausea, no vomiting, no diarrhea, no pain, no constipation : No frequency, no urgency and no dysuria MUSC/SKEL +right arm and leg pain, no back pain SKIN: No rash NEURO: No weakness, no headache Past Medical History Past Medical History NEUROLOGIC: Positive Neurological Disorders, Transient Ischemic Attacks (TIA) (12/06/18 HOSP X3 DAYS) and Head Trauma (HIT ON THE HEAD 2008 ER VISIT) CARDIAC: Positive Cardiac Disorders, Cardiac Arrhythmia (BRADYCARDIA) and Hypercholesterolemia GASTROINTESTINAL: Positive Gastrointestinal Disorders, Ulcer and Obesity GENITOURINARY: Positive Genitourinary Disorders, Kidney Stones, Inguinal Hernia (right), Prostate Cancer and Benign Prostatic Hyperplasia MUSCULOSKELETAL: Positive Musculoskeletal Disorders, Arthritis, Carpal Tunnel Syndrome (X2 RIGHT) and Fractures (LEFT ANKLE HAD CAST,BACK) ENT: Positive Head Trauma (HIT ON THE HEAD 2008 ER VISIT) ENDOCRINE: Positive Endocrine Disorders and Diabetes Mellitus Type 2 (TAKES PO MED) PSYCHO/SOCIAL: Positive Depression and Anxiety OTHER HISTORY: Positive Hospitalization (HOSP 11/28), Autoimmune Disease, Falls (11/28), Radiation Therapy (13 MONTHS AGO), MRSA (SCROTUM 2009), Measles, Rubella ([place] Measles), Cancer (EYEBALL right SQUAMOS CELL, BLADDER CA, PROSTATE CA, ABDOMINAL LYMPH NODE) and Prostate Cancer Family History FAMILY HISTORY: Positive Family Psychiatric Problems (SISTER (DEPRESSION)), Family Respiratory Disorders (MOTHER), Family Gastrointestinal Problems (FATHER (ULCER)) and Family Surgery Surgical History SURGICAL: Positive Pacemaker, Eye Surgery (R CARCINOMA REMOVAL), Tonsillectomy, Abdominal Surgery, Joint Replacement (ERIN HIPS, LEFT KNEE) and Amputation (LEFT HAND INDEX FINGER TIP) Social History SMOKING STATUS: Never smoker SECOND HAND EXPOSURE: No ED Exam General Limitations: Present no limitations General appearance: Present alert and in no apparent distress Head Head exam: Present other (Abrasion to the right center fo scalp with a scab just behind the area that is healing. ) Eye Eye exam: Present normal appearance, PERRL and EOMI ENT ENT exam: Present normal exam, normal oropharynx and mucous membranes moist Neck Neck exam: Present normal inspection, full ROM and trachea midline; Absent tenderness Chest Chest inspection: Present normal inspection and symmetric chest wall rise Respiratory Respiratory exam: Present normal lung sounds bilaterally Cardiovascular Cardiovascular exam: Present regular rate, normal rhythm and normal heart sounds Abdominal Exam Abdominal exam: Present soft and normal bowel sounds Extremities Exam Extremities exam: Present normal inspection and full ROM Back Exam Back exam: Present full ROM and other (At about T1 and T2 there is midline tenderness both paraspinous and over spinous process, below T2 there is no tenderness ) Neurological Exam Neurological exam: Present alert, oriented X3 and CN II-XII intact Psychiatric Psychiatric exam: Present normal affect and normal mood Skin Skin exam: Present warm, dry, intact and normal color Course Quality Measures none Orders Category Date Time Status Wound Care NOW Care 02/01/25 16:[address] cervical spine wo con Stat Exams 02/01/25 16:[address] head/brain wo con Stat Exams 02/01/25 16:[address] thoracic spine wo con Stat Exams 02/01/25 16:46 Completed Ketorolac Inj [Toradol Inj] Med 02/01/25 16:46 Discontinued 15 mg IM X1 ONE Vital Signs Vital signs: Vital Signs Temperature 98.3 F 02/01/25 16:36 Pulse Rate 60 02/01/25 16:36 Respiratory Rate 18 02/01/25 16:36 Blood Pressure 144/68 H 02/01/25 16:36 Pulse Oximetry (%) 92 L 02/01/25 16:36 Oxygen Delivery Method Room Air 02/01/25 16:36 Pulse ox is 92% on room air which is low. Head Injury MDM Narrative MDM Narrative:: Arabella Galloway am scribing for and in the presence of Dr. Naranjo. 1800: Patient signed out to Dr. Flores pending final disposition. Patient data External records reviewed:: [facility] previous records (I reviewed oncologuy f/u note on 12/04/2024) and EMS form Clinical information provided by:: patient and EMS Social determinants that could affect healthcare access:: none Patient has the following chronic illnesses:: prostate cancer undergoing treatment, s/p prostatectomy, s/p multiple back surgeries, hypertension, diabetes How is presenting disease/condition affected by chronic disease/condition?: exacerbated by Evaluation data The following diagnostics were reviewed and interpreted by me:: lab results and radiology exam(s) Lab and/or radiology exams considered but not ordered:: None Interpretation Summary: Ordering Physician: Tyler Naranjo MD Date of Service: 02/01/25 Procedure(s): CT cervical spine wo con Accession Number(s): [id number] cc: Tyler Naranjo MD; Med Huston MD; Chris Foley MD~ Examination: CT cervical spine without contrast 2-D sagittal reconstructions 2-D coronal reconstructions 3-D reconstructions. Exam date and time:February 01, 2025 1712 hours INDICATIONS: Patient fell today with injury to the neck, neck pain CTDI 12.1 DLP: (mGycm) 322 Technique: Multiple 2 mm axial sections of the cervical spine have been obtained. The coronal and sagittal reconstructions have been obtained. 3-D reconstructions have been obtained. Low dose protocols were performed. One or more of the following dose reduction techniques were used; automated exposure control, adjustment of the mA and/or KV according to patient size, use of iterative reconstruction technique. Findings: Axial sections demonstrate intact base of the skull. C1 exhibit satisfactory relationship to the odontoid. No acute cervical vertebral body fracture seen. Alignment posterior spinous processes satisfactory. Impression: No acute cervical fracture. Dictated By: Med Huston MD Signed By: <Electronically signed by Med Huston MD in OV> 02/01/25 1826 Ordering Physician: Tyler Naranjo MD Date of Service: 02/01/25 Procedure(s): CT head/brain wo con Accession Number(s): [id number] cc: Tyler Naranjo MD; Med Huston MD; Chris Foley MD~ Examination: CT brain head without contrast. 2-D sagittal coronal reconstructions Date and time of exam:February 01, 2025 1712 hours INDICATIONS: Patient fell today with injury to head, head pain CTDI: vol (mGy):59 DLP: (mGycm):1291 Technique: Multiple CT axial sections of the brain have been obtained, 5 mm slice thickness. Contrast has not been administered. 2-D sagittal, coronal reconstructions have been obtained Low dose protocols were performed. One or more of the following dose reduction techniques were used; automated exposure control, adjustment of the mA and/or KV according to patient size, use of iterative reconstruction technique. Findings: No significant ventricular enlargement. Intra-axial or extra-axial hemorrhage density is not seen. No mass effect or midline shift Basal cisterns are not remarkable. Fourth ventricle is midline. Cranial vault intact. Impression: Negative for acute hemorrhage, mass effect or midline shift Dictated By: Med Huston MD Signed By: <Electronically signed by Med Huston MD in OV> 02/01/25 1827 Ordering Physician: Tyler Naranjo MD Date of Service: 02/01/25 Procedure(s): CT thoracic spine [facility] Accession Number(s): [id number] cc: Tyler Naranjo MD; Med Huston MD; Chris Foley MD~ Examination: CT thoracic spine, without contrast. 2-D sagittal reconstructions. 2-D coronal reconstructions. 3-D reconstructions. Date and time of exam:February 01, 2025 1711 hours INDICATIONS: Patient fell today with injury to the upper back, upper back pain CTDI: vol (mGy):51 DLP: (mGycm):2100 Technique: Multiple 1.25 mm axial sections of the thoracic spine have been obtained. 2-D sagittal and coronal reconstructions have been obtained. 3-D reconstructions have been obtained. Low dose protocols were performed. One or more of the following dose reduction techniques were used; automated exposure control, adjustment of the mA and/or KV according to patient size, use of iterative reconstruction technique. 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 (list below): No Diagnosis Differential diagnosis head injury: concussion without loss of consciousness, epidural hematoma and closed head injury Most likely diagnosis given after review of the tests above:: Closed head injury Admission Indicated Admission indicated?: not indicated Explain why admission is indicated or not indicated:: Patient signed out to Dr. Flores pending Admission Request Was there a request for admission?: No Disposition Plan Disposition Plan: other (specify) (Signed out to Dr. Flores pending final disposition ) Discharge Plan Prescriptions/Referrals Prescriptions/Med Rec: No Action furosemide [Lasix] 20 mg tablet 20 mg PO QDAY gabapentin 300 mg capsule 300 mg PO BID metformin [Glucophage] 500 MG tablet 500 mg PO BIDAC Qty: 0 atorvastatin 40 mg tablet 40 mg PO DAILY Patient Comments: TAKE 1 TABLET BY MOUTH ONCE DAILY FOR CHOLESTEROL FOR 90 DAYS trazodone 50 mg tablet 50 mg PO QHSPRN PRN (Reason: Sleep) Patient Comments: TAKE 1 TABLET BY MOUTH TWICE DAILY Xtandi 40 mg tablet 40 mg PO DAILY amoxicillin-pot clavulanate 875-125 mg tablet 1 tab PO Q12H Qty: 20 0RF Referrals: Chris Foley MD [Primary Care Provider] - In 1 week Patient/Caregiver Discharge Instructions Print Language: Citizen Of [place]
--- NOTE | 2025-02-01 19:35 | PD.EDADDENDU ---
Emergency Room Addendum Addendum Narrative: 1800: Care assumed from Dr. Naranjo (emergency physician). Past medical, surgical, social and family history reviewed. Vitals and home medications reviewed. Results and treatment plan discussed. I will assume the care of the patient at this time and will follow the patient, pending Re-evaluation and final disposition. 2000: Patient discharged.
== END 2025-02-01 20:03 | disposition home or self-care (01) ==
PROVIDERS: Emergency Provider Emergency Medicine; PCP Family Medicine
DX: S09.90XA Unspecified injury of head, initial encounter (principal); S19.9XXA Unspecified injury of neck, initial encounter; S29.9XXA Unspecified injury of thorax, initial encounter; C79.51 Secondary malignant neoplasm of bone; C61 Malignant neoplasm of prostate; W22.8XXA Striking against or struck by other objects, initial encounter; Y93.01 Activity, walking, marching and hiking
CPT/HCPCS: 70450; 72125; 72128; 96372; 99284; J1885

== ENCOUNTER → 2025-02-05 | Outpatient (CLI) | payer MEDICARE, BC, SELFPAY ==
[2025-02-05 13:39] LABS: Basophils % (Auto) 1 % (0-2.5); Eosinophils # (Auto) 0.2 Thou/mm3 (0.0-0.5); Eosinophils % (Auto) 3 % (0-10); Hematocrit 36.9 % (41.0-53.0); Hemoglobin 12.6 g/dL (13.5-16.0); Immature Granulocytes % (Auto) 0 % (0-0); Immature Granulocytes Auto 0.02 Thou/mm3 (0.00-0.00); Lymphocytes # (Auto) 0.7 Thou/mm3 (1.0-4.8); Lymphocytes % (Auto) 12 % (10-50); Mean Corpuscular HGB Conc 34.1 g/dl (31.0-37.0); Mean Corpuscular Hemoglobin 30.8 pg (25.0-35.0); Mean Corpuscular Volume 90 fL (80-100); Monocytes # (Auto) 0.5 Thou/mm3 (0.0-0.8); Monocytes % (Auto) 10 % (0-12); Neutrophils # (Auto) 3.9 Thou/mm3 (1.8-7.7); Neutrophils % (Auto) 74 % (37-80); Nucleated Red Blood Cell % 0 /100 WBC (0); Platelet Count 223 Thou/mm3 (140-440); Red Blood Count 4.09 Miln/mm3 (4.50-5.90); White Blood Count 5.3 Thou/mm3 (3.8-10.6)
[2025-02-05 14:01] LABS: Alanine Aminotransferase 15 U/L (10-49); Albumin, Serum 4.7 gm/dL (3.4-4.8); Albumin/Globulin Ratio 2.1 (1.2-2.2); Alkaline Phosphatase 105 U/L (46-116); Anion Gap 8 (7-16); Aspartate Amino Transferase 19 U/L (0-34); BUN/Creatinine Ratio 21 Ratio (12-20); Bilirubin,Total 0.7 mg/dL (0.3-1.2); Blood Urea Nitrogen 21 mg/dL (9-23); Calcium 10.7 mg/dL (8.3-10.6); Calcium (Corrected) 10.7 mg/dL (8.5-10.1); Carbon Dioxide 26.7 mMol/L (20.0-31.0); Chloride 102 mMol/L (98-107); Globulin 2.2 gm/dL (2.3-3.5); Glucose 108 mg/dL (74-106); Osmolality,Calculated 277 (275-295); Potassium 4.5 mMol/L (3.4-5.1); Sodium 137 mMol/L (136-145); Total Protein 6.9 gm/dL (5.7-8.2); eGFR > 60 See Note
[2025-02-05 14:05] LABS: Ferritin 102 ng/mL (10.5-307.3); Folate 14.86 ng/mL (>5.38); Iron 56 mcg/dL (65-175); Percent Iron Saturation 17 % (20-55); Prostate Specific Antigen 0.34 ng/mL (0-4.00); Total Iron Binding Capacity 326 mcg/dL (250-425); Unsaturated Iron Binding 270 (225-295); Vitamin B12 300 pg/mL (211-911)
== END | disposition home or self-care (01) ==
LOC: SCTO 13:08
PROVIDERS: PCP Family Medicine; Referring Provider Internal Medicine Hematology & Oncology; Visit Provider Internal Medicine Hematology & Oncology
DX: C61 Malignant neoplasm of prostate (principal); C79.51 Secondary malignant neoplasm of bone
CPT/HCPCS: 36415; 80053; 82607; 82728; 82746; 83540; 83550; 84153; 85025

== ENCOUNTER 2025-02-07 13:47 | Outpatient (RCR) | payer MEDICARE, BC, SELFPAY ==
--- NOTE | 2025-02-10 23:36 | CTCFLWUP_ITS ---
Patient: TAWANDA ANTONIO : 1955 Page 7 of 9 FOLLOW UP NOTE DATE OF SERVICE: 02/07/2025 NAME: TAWANDA ANTONIO ACCOUNT: [id number] : 1955 AGE: 69 INTERVAL HISTORY: Subjective: Chief Complaint Back and hip pain, nerve intrusion to the thighs History of Present Illness Tawanda Antonio, a patient with a history of prostate cancer and thoracic vertebrae disease, presents for follow-up regarding back and hip pain. At his last visit, he reported experiencing back and hip pain. Since then, he has seen Dr. Sultana, who suspects nerve intrusion to the thighs and ordered an MRI. The patient is scheduled to see Thyrogen next week. The patient reports no new issues with his teeth or bones. He mentions having received radiation treatment to his spine, consisting of 10 sessions. His current medication regimen includes Lupron (leuprolide depot) 7.5 mg monthly and a bone medicine (presumably Xgeva) every 3 months, with his next dose due next month. The patient notes that he received an iron infusion yesterday. The patient's back pain history is significant, as he mentions breaking his back in 1983. His current posture and sitting habits may be contributing to his spinal discomfort. The patient does not report any specific changes in the severity, character, or impact of his back and hip pain since the last visit. Medications and Supplements - Xgeva 120 mg - Last dose on January 16 - Switched to every 3 months - Lupron (leuprolide for depot) 7.5 mg - Administered monthly - Iron - Infusion given yesterday Review of Systems Musculoskeletal: Positive for back pain, hip pain, and thigh pain. Objective: Physical Examination Musculoskeletal: Patient's body posture suggests possible spine issues. Sits in a way that affects the spine. Laboratory, Imaging, and Diagnostic Test Results - Date: 01/16/2025 - Xgeva (denosumab): 120 mg administered - MRI (date not specified): Negative for right femur lesions - Bone scan (date not specified): One lesion in thoracic vertebrae - PSA: 0.34 (date not specified) - PET scan (06/2024): Last performed - Previous results: - Xgeva (denosumab): Administered in July 2024 and September 2024 ONCOLOGY HISTORY:?[facility] Oncology Hx? 08/22/2024: patient restarted Xtandi on 08/02/2024. Patient received Xgeva on 08/01/2024. Currently on monthly Lupron injections as well. Patient started radiation to T1 T3 today. Only complaint is feeling tired. Patient reports good appetite. INTERVAL HISTORY: PET/CT done on 06/28/2024 showed osseous metastatic disease involving the entire T3 vertebral body. Patient reports his back feels ?achy? denies numbness to the legs or radiating pain. 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 HISTORY: Tawanda Antonio is a 69-year-old ENG speaking male with history of diabetes, hyperlipidemia has the following oncology history. 02/27/2019: PSA 0.6. 07/22/2020: PSA 5.76. 12/16/2020: Prostate biopsy was performed for elevated PSA of 5.6. Biopsy showed [place] grade 10 prostatic adenocarcinoma in multiple cores. 12/26/2020: Mr. Antonio had transurethral resection of the bladder and prostate tumor. 01/16/2021: PSA 14.11. 01/22/2021: Patient received Lupron 7.5 mg. He was also started on Casodex. 02/23/2021: Patient received 7.5 mg Lupron again. 02/16/2021: Bone scan? 03/25/2021: Patient received third dose of Lupron 7.5 mg IM. 05/04/2021: Mr. Antonio underwent robotic radical cystoscopy prostatectomy with pelvic lymph node dissection and intracorporeal ileal conduit placement. it was staged as YPT4N1 disease. PSA trend: 03/23/2021: PSA less than 0.10. 06/15/2021: PSA less than 0.10. 07/27/2021: PSA 0.11. 10/21/2021: PSA 0.85. 10/14/2021: Urogram CT? 11/19/2021: PSA 1.66. 12/11/2021: Bone scan? 12/21/2021: Mr. Antonio is started on radiation therapy to the prostate bed. 01/29/2022: PSA 9.52. 02/11/2022: Patient completed radiation therapy to the prostate bed. He received 6840 cGy radiation therapy in 38 fractions. 05/13/2022: PSA 29.17. 06/10/2022: Bone scan? 06/11/2022: PET/CT scan? 06/15/2022: PSA 26.70. 06/17/2022: CT scan of the abdomen and pelvis with IV contrast? 06/21/2022: Mr. Antonio stopped taking Xtandi 160 mg p.o. daily in addition to Lupron. 08/09/2022: PSA 0.31 09/02/2022: PSA less than 0.10. 12/31/2022: PSA less than 0.10. 06/02/2023: PSA less than 0.10 09/01/2023: PET/CT 10/24/2023: Chest x-ray 10/24/2023: PSA less than 0.10 02/03/2024: PSA 0.19 06/20/2024: PSA 1.42 06/28/2024: PET/CT-osseous metastatic disease involving the entire T3 vertebral body 11/20/2024 bone scan --Increased isotope accumulation T3 again noted MRI DIAGNOSIS: Metastatic (M1a) high-grade prostate cancer with intra-abdominal lymphadenopathy (06/17/2022). S/p prostatectomy (05/04/2021) S/p radiation therapy to the prostate bed (12/21/2021 - 02/11/2022) S/p ileostomy. Currently on monthly Lupron Was on Xtandi along with Lupron since (06/2022-09/2023). DATE OF DIAGNOSIS: 12/16/2020 STAGE/TNM: [id number] (05/05/2021) TREATMENT HISTORY: Care?Plan Start?Date Cycle Day Intent Lupron?22.5?mg?q?3?mon 06/21/2022 1 90 Palliative Lupron?7.5?mg 06/21/2022 1 30 Palliative Lupron?7.5?mg 06/26/2024 1 30 Palliative Xgeva?120?mg?q?monthly?for?3?months,?followed?by?q?3?months 07/19/2024 1 90 Palliative VENOfer?200mg?IV?wkly?for?10?weeks 02/06/2025 1 70 Palliative HISTORY OF PRESENT ILLNESS: OTHER MEDICAL HISTORY/CONDITIONS: Diabetes type 2 FAMILY HISTORY: ?Clone Family Hx? SOCIAL HISTORY: MEDICATIONS: 1. atorvastatin - 40 mg Daily 2. Citracal + D Slow Release - 600 mg-12.5 mcg (500 unit) 1 tab one tab po twice a day 3. gabapentin - 300 mg 2 Capsule Twice a Day 4. HYDROcodone-acetaminophen - 10-325 mg 1 tab q8 5. Lasix - 20 mg 1 tab As needed 6. ondansetron - 8 mg 1 tab twice a day 7. PROzac - 20 mg 1 Capsule Daily 8. traZODone - 50 mg 1 tab Twice a Day 9. Xtandi - 40 mg 4 Capsule Daily?Palabra Meds? Medications Last Reconciled by Taty Berumen RN on 02/07/2025 ALLERGIES: [id number] REVIEW OF SYSTEMS: A complete 14-point review of systems was performed and is negative except as noted in interval history. PHYSICAL EXAMINATION:?[facility]oneBlock PE? VITAL SIGNS: Temperature?97.7, B/P?136/76, Oxygen?Saturation?94% Weight?304?lbs (Change?since?02/06/25:?3?lbs) PAIN: 7 - Between severe and very severe pain ECOG Performance Status: 0 - Asymptomatic and fully active GENERAL APPEARANCE: Appears well, in no apparent distress, appropriately interactive. HEENT: Normocephalic, normal conjunctiva, normal hearing, lips without lesions, CARDIOVASCULAR: Patient has a pacemaker. PULMONARY: Normal respiratory effort, no respiratory distress or use of accessory muscles, speaking in full sentences, no tachypnea. EXTREMITIES: No cyanosis. SKIN: Normal skin appearance. NEUROLOGIC: Alert and ORIENTED x4. PSHYCHIATRIC: Appropriate affect, mood normal, behavior normal, intact thought and speech. LABORATORY DATA: I have personally reviewed and interpreted each of the patient?s relevant lab tests, abnormal findings are below: Date 12/31/24 02/05/25 ??WHITE?BLOOD?COUNT?(Thou/mm3) ? 5.3 ??RED?BLOOD?COUNT?(Miln/mm3) ? 4.09?L ??HEMOGLOBIN?(gm/dl) ? 12.6?L ??HEMATOCRIT?(%) ? 36.9?L ??PLATELET?COUNT?(Thou/mm3) ? 223 ??NEUTROPHILS?%,?AUTO?(%) ? 74 ??LYMPH?%,?AUTO?(%) ? 12 ??NEUTROPHILS,?AUTO?(Thou/mm3) ? 3.9 ??GLUCOSE,RANDOM?(mg/dL) 115?H 108?H ??BLOOD?UREA?NITROGEN?(mg/dL) 25?H 21 ??CREATININE?(mg/dL) 1.00 1.00 ??SODIUM?(mmol/L) 137 137 ??POTASSIUM?(mmol/L) 4.1 4.5 ??CHLORIDE?(mmol/L) 102 102 ??CrCl?(CandG)?(ml/min) 101.39 101.25 ??AST/SGOT?(Unit/L) 18 19 ??ALT/SGPT?(Unit/L) 13 15 ??ALKALINE?PHOSPHATASE?(Unit/L) 99 105 ??BILIRUBIN,?TOTAL?(mg/dL) 0.7 0.7 ??PROTEIN?TOTAL?(gm/dl) 6.5 6.9 ??ALBUMIN,?SERUM?(gm/dl) 4.3 4.7 ??GLOBULIN?(gm/dl) 2.2?L 2.2?L ??ALBUMIN/GLOBULIN?RATIO 2.0 2.1 ??CALCIUM,?SERUM?(mg/dL) 9.4 10.7?H ??CALCIUM?SERUM?(CORRECTED)?(mg/dL) 9.4 10.7?H ??TOTAL?IRON?BINDING?CAP?(S*)?(mcg/dL) ? 326 ??UNBOUND?IBC?(mcg/dL) ? 270 ASSESSMENT/PLAN:?Jennifer Ochoa Assessment/Plan? Paco Russell, male patient with history of prostate cancer and thoracic vertebrae disease, presenting with back and hip pain. 1. Metastatic (M1a) high-grade prostate cancer with intra-abdominal lymphadenopathy (06/17/2022). S/p prostatectomy (05/04/2021) Treated with neoadjuvant antihormonal therapy with Lupron and Casodex followed by radical prostatectomy as described above. Pathology showed YPT4N1 disease. S/p radiation therapy to the prostate bed (12/21/2021 - 02/11/2022) S/p ileostomy. Currently on monthly Lupron 7.5 mg IM Was on Xtandi along with Lupron since (06/2022-09/2023). Patient self discontinued Xtandi, reports he wanted a break. Restarted Xtandi 160 mg p.o. daily, 08/02/2024 MRI of spine showed osseous metastatic disease involving T1 and T3, no tumor impingement upon thoracic cord, 07/30/2024. Started radiation to T1 T3, (08/22/2024-), completed 10 radiation treatments, following up with Dr. Saldaña PSA 0.53, hemoglobin 12.4, 09/25/2024, PSA level is decreasing Patient taking Freer for pain, following up with Dr. Saldaña Patient recently complaining of right hip pain, history of osteoarthritis to right hip and right hip replacement. X-ray of right femur done 10/18/2024 showed extensive dysmorphic ossification lateral to the right hip joint, satisfactory alignment, total right hip arthroplasty. Last bone scan was done on 05/2024 showed uptake in T3 level. 12/03/2024 MRI is negative Continue Xtandi Continue on monthly Lupron. Continue Xgeva 120 mg subcutaneous every 3 months, started 08/01/2024. Continue Citracal p.o. 1 tablet twice a day Assessment and Plan: Back and Hip Pain Assessment: Patient reports ongoing back and hip pain. Dr. Sultana suspects nerve intrusion to the thighs and has ordered an MRI. Patient has known disease in the thoracic vertebrae, not the lumbar area. Previous MRI was negative for the right femur. Given the low PSA (0.34), the etiology of the spine issue is unclear. Differential diagnoses include prostate cancer metastasis, arthritis, or other spinal pathology. Patient's posture and history of back injury in 1983 may contribute to symptoms. Plan: - Order PSMA PET scan to evaluate for prostate cancer metastasis - Order serum electrophoresis to rule out multiple myeloma - Await results of scheduled MRI - If PSMA scan negative for prostate cancer in T3, refer to neurologist - If PSMA scan positive, consider radiation therapy - Follow up in 4 weeks after completion of ordered tests Prostate Cancer Assessment: Patient has history of prostate cancer with previous disease in thoracic vertebrae. Current PSA is 0.34, which is low. Last PET scan was in June 2024. Patient is on Lupron (leuprolide) 7.5 mg monthly for hormonal therapy. Plan: - Continue Lupron (leuprolide) 7.5 mg depot monthly - Monitor PSA monthly - Order PSMA PET scan to evaluate disease status - Consider Pluvicto treatment if PSMA PET scan positive for prostate cancer Bone Health Management Assessment: Patient is on Xgeva (denosumab) for bone health, now administered every 3 months. Last dose was in September, with next dose due next month. No reported issues with teeth or bones. Previous bone scan showed one lesion in thoracic vertebrae, which was treated with 10 radiation treatments. Plan: - Continue Xgeva every 3 months as scheduled - Avoid spine manipulation for at least 6 months after last Xgeva dose - Monitor for any dental or bone-related issues Anemia Assessment: Patient received iron infusion yesterday for anemia management. Plan: - Monitor CBC monthly - No further iron studies needed at this time ORDERS: Order # Description [id number] Initial PET/CT of Skull to Mid-Thigh [id number] PSA + Comprehensive Metabolic Panel - 12 + CBC with Auto Diff [id number] MD Follow Up 4 Week [id number] Serum Protein Electrophoresis + Serum Immunofixation Electrophoresis + Beta-2 Microglobulin + Quant Immunoglobulins + Free kappa and lambda light chains plus ratio, quantitative + Urine Protien Electrophoresis RETURN TO CLINIC: BILLING AND COMPLIANCE: I reviewed external records from providers outside my specialty as summarized above. I spent a total of 50 minutes on this patient?s care on the day of their visit excluding time spent related to any billed procedures. This time includes time spent with the patient as well as time spent documenting in the medical record, reviewing patients records and tests, obtaining history, placing orders, communicating with other healthcare professionals, counseling the patient, family or caregiver, and/or care coordination for the diagnoses above. Electronically Signed by: Tani Ochoa MD T: 11:34 PM CC: PCP: Ashley Foley Referring: Ashley Foley This document was completed utilizing speech recognition software. Grammatical errors, random word insertions, pronoun errors, and incomplete sentences are an occasional consequence of this system due to software limitations, ambient noise, and hardware issues. Any formal questions or concerns about the content, text or information contained within the body of this dictation should be directly addressed to the provider for clarification.
== END 2025-02-09 23:59 | disposition home or self-care (01) ==
LOC: SCTC 13:47
PROVIDERS: PCP Family Medicine; Referring Provider Family Medicine; Visit Provider Internal Medicine Hematology & Oncology
DX: Z51.11 Encounter for antineoplastic chemotherapy (principal); C61 Malignant neoplasm of prostate; C79.51 Secondary malignant neoplasm of bone; Z90.79 Acquired absence of other genital organ(s); Z92.3 Personal history of irradiation; M16.11 Unilateral primary osteoarthritis, right hip; Z96.641 Presence of right artificial hip joint
CPT/HCPCS: 96365; 96367; 96372; 96375; 96402; 99212; J1756; J2919; J3420; J3490; J7040; J7050; J9217; A9270; G0463

== ENCOUNTER 2025-02-24 18:49 | Emergency (ER) | payer MEDICARE, BC, SELFPAY ==
[2025-02-24 18:50] VITALS: BMI 36.5
[2025-02-24 19:15] VITALS: BP 133/69; PULSE 55; RESP 18; TEMP 36.9; O2SAT 95
--- NOTE | 2025-02-24 19:52 | PD.EDADULT ---
ED General RME/HPI General Chief complaint: General Adult/Misc Complain Stated complaint: HIVES R) NECK, SCALP, JAW; DIFF SWALLOWING Time Seen by Provider: 02/24/25 19:49 Arrival date/time: 02/24/25 18:49 RME / HPI RME / HPI narrative: 69-year-old male presents to the ED with his with a complaint of a painful rash that began on the right side of his face, then spread to his right ear, right posterior neck, right lateral neck, anterior shoulder and chest. He denies fever or chills. He is a current cancer patient undergoing chemo as well as Lupron for his prostate cancer that has metastasized to his spine. He denies being around anyone with shingles or chickenpox recently. Related Data Home Medications ?Medication ?Instructions ?Recorded ?Confirmed metformin 500 mg tablet 500 mg PO BIDAC #0 tabs 08/05/15 03/03/25 (Glucophage) trazodone 50 mg tablet 50 mg PO QHSPRN PRN Sleep 05/13/23 03/03/25 Held on 05/13/23. Instructions: Resume on 05/14/23. atorvastatin 40 mg tablet 40 mg PO .aday 03/03/25 03/03/25 fluoxetine 20 mg capsule (Prozac) 20 mg PO QDAY 03/03/25 03/03/25 furosemide 40 mg tablet 40 mg PO Q12H PRN edema 03/03/25 03/03/25 methadone 10 mg tablet 10 mg PO BID 03/03/25 03/03/25 pregabalin 100 mg capsule (Lyrica) 100 mg PO BID 03/03/25 03/03/25 Allergies Allergy/AdvReac Type Severity Reaction Status Date / Time bacitracin Allergy Mild Rash Verified 03/02/25 17:57 gramicidin D Allergy Mild Rash Verified 03/02/25 17:57 neomycin Allergy Mild Rash Verified 03/02/25 17:57 Review of Systems Review of Systems Systems Reviewed: All systems reviewed, normal except as documented Past Medical History Past Medical History NEUROLOGIC: Positive Neurological Disorders, Transient Ischemic Attacks (TIA) and Head Trauma; Negative Seizures CARDIAC: Positive Cardiac Disorders, Cardiac Arrhythmia and Hypercholesterolemia; Negative Congestive Heart Failure or Hypertension RESPIRATORY: Negative Chronic Obstructive Pulmonary Disease (COPD), Asthma or Sleep Apnea GASTROINTESTINAL: Positive Gastrointestinal Disorders, Ulcer and Obesity GENITOURINARY: Positive Genitourinary Disorders, Kidney Stones, Inguinal Hernia, Prostate Cancer and Benign Prostatic Hyperplasia; Negative Renal Disease MUSCULOSKELETAL: Positive Musculoskeletal Disorders, Bone Cancer (T3 SPINE), Arthritis, Carpal Tunnel Syndrome and Fractures ENT: Positive Head Trauma ENDOCRINE: Positive Endocrine Disorders and Diabetes Mellitus Type 2; Negative Diabetes Mellitus Type 1 HEMATOLOGIC: Negative Blood Disorders or Sickle Cell Disease PSYCHO/SOCIAL: Positive Depression and Anxiety OTHER HISTORY: Positive Hospitalization, Autoimmune Disease, Falls, Radiation Therapy, MRSA, Measles, Rubella (Italian Measles), Cancer and Prostate Cancer; Negative Shingles, Blood Transfusions, Blood Transfusion Reaction, Anesthesia Reactions, Chemotherapy, Chicken Pox or Mumps Family History FAMILY HISTORY: Positive Family Psychiatric Problems, Family Respiratory Disorders, Family Gastrointestinal Problems and Family Surgery; Negative Family Cardiac Disorders, Family Cancer or Family Anesthesia Reaction Surgical History SURGICAL: Positive Pacemaker, Eye Surgery, Tonsillectomy, Abdominal Surgery, Joint Replacement and Amputation; Negative Cardiac Surgery Social History SMOKING STATUS: Never smoker SECOND HAND EXPOSURE: No ED Exam Narrative Physical exam: 69-year-old male, mild acute pain distress. He is alert and oriented herpetic type rash noted to the posterior scalp, posterior neck, right lateral neck extending down to the upper trapezius area and onto the right anterior chest wall. Rash does not extend across the center line. Vesicles noted in several dermatomes. Course Course Course Narrative: Patient was given Toradol 30 mg IM, diazepam 5 mg p.o., and acyclovir 800 mg p.o. Quality Measures none Orders Category Date Time Status Acyclovir [Zovirax] Med 02/24/25 19:57 Discontinued 800 mg PO X1 ONE Diazepam [Valium] Med 02/24/25 20:02 Discontinued 5 mg PO X1 ONE Ketorolac Inj [Toradol Inj] Med 02/24/25 19:56 Discontinued 30 mg IM X1 ONE Vital Signs Vital signs: Vital Signs Temperature 98.5 F 02/24/25 19:15 Pulse Rate 55 L 02/24/25 19:15 Respiratory Rate 18 02/24/25 19:15 Blood Pressure 133/69 H 02/24/25 19:15 Pulse Oximetry (%) 95 02/24/25 19:15 Oxygen Delivery Method Room Air 02/24/25 19:15 Discharge Plan Plan Patient Disposition: HOME (Self Care) Discharge Disposition comment: Stable Prescriptions/Referrals Prescriptions/Med Rec: No Action metformin [Glucophage] 500 MG tablet 500 mg PO BIDAC Qty: 0 trazodone 50 mg tablet 50 mg PO QHSPRN PRN (Reason: Sleep) Patient Comments: TAKE 1 TABLET BY MOUTH TWICE DAILY furosemide 40 mg tablet 40 mg PO Q12H PRN (Reason: edema) Patient Comments: TAKE 1 TABLET BY MOUTH ONCE DAILY FOR 7 DAYS methadone 10 mg tablet 10 mg PO BID Patient Comments: TAKE 1 TABLET BY MOUTH TWICE DAILY atorvastatin 40 mg tablet 40 mg PO .aday fluoxetine [Prozac] 20 mg capsule 20 mg PO QDAY pregabalin [Lyrica] 100 mg capsule 100 mg PO BID Problem List Clinical Impression: Herpes zoster Patient/Caregiver Discharge Instructions Education Materials: ED Shingles (Herpes Zoster) Additional Instructions: Follow-up with your primary care physician in 24 to 48 hours. Return to the ED for any new or worsening symptoms. Print Language: Thai Stand Alone Forms: [employer] Award Info., Patient Portal Info Letter PA/BRIAN Supervising Physician PA/ACQUISITION PROFESSIONAL Supervising Physician: Dr. Saldaña [facility] Narrative MDM hospital course: 69-year-old male presents to the ED with his with a complaint of a painful rash that began on the right side of his face, then spread to his right ear, right posterior neck, right lateral neck, anterior shoulder and chest. He denies fever or chills. He is a current cancer patient undergoing chemo as well as Lupron for his prostate cancer that has metastasized to his spine. He denies being around anyone with shingles or chickenpox recently. 69-year-old male, mild acute pain distress. He is alert and oriented herpetic type rash noted to the posterior scalp, posterior neck, right lateral neck extending down to the upper trapezius area and onto the right anterior chest wall. Rash does not extend across the center line. Vesicles noted in several dermatomes. Rashes consistent with herpes zoster to several dermatomes on the right. Patient was given Toradol 30 mg IM, diazepam 5 mg p.o., and acyclovir 800 mg p.o. Patient was prescribed Valtrex 1000 mg p.o. 3 times daily. He is already prescribed methadone and Lyrica which will both be helpful for the pain and neuropathy associated with herpes zoster. Procedures done or offered: N/A Clinical Information Provided by patient and spouse Medical Records Reviewed [facility] Meds/Rx Considered, not Ordered None Describe details: N/A Labs/Rad/Tests considered, not Ordered None Describe details: N/A Chronic Illness/Social Conditions which may negatively complicate care or outcome(s)-explain: Cancer EKG EKG not done Lab Interpretation Labs: none Lab(s) interpretation(s): N/A Imaging Imaging interpretation: none Provider imaging interpretation(s): N/A Radiology reports / interpretation(s): N/A Medication Administration(s) Medication Administration History Discontinued Medications Acyclovir (Acyclovir 800 Mg Tablet) 800 mg PO X1 ONE Stop: 02/24/25 19:58 Last Admin: 02/24/25 20:27 Dose: 800 mg Documented By: JUSTINE Diazepam (Diazepam 5 Mg Tablet) 5 mg PO X1 ONE Stop: 02/24/25 20:03 Last Admin: 02/24/25 20:27 Dose: 5 mg Documented By: JUSTINE Ketorolac Tromethamine (Ketorolac Inj 60 Mg/2 Ml Vial) 30 mg IM X1 ONE Stop: 02/24/25 19:57 Last Admin: 02/24/25 20:27 Dose: 30 mg Documented By: JUSTINE Toradol 30 mg IM, acyclovir 800 mg p.o., diazepam 5 mg p.o. Diagnosis Differential diagnosis: Urticaria, contact dermatitis, herpes zoster. Most likely dx, and/or detailed dx discussion: Herpes zoster to the right side in several dermatomes. Dispositon Disposition: Discharge Home Disposition comments: Stable
[2025-02-24] MEDS: KETOROLAC INJ 60 MG/2 ML VIAL 30 MG IM (20:27)
[2025-02-24] MEDS: DIAZEPAM 5 MG TABLET PO (20:27)
[2025-02-24] MEDS: ACYCLOVIR 800 MG TABLET PO (20:27)
== END 2025-02-24 20:31 | disposition home or self-care (01) ==
LOC: SERX 20:05
PROVIDERS: Emergency Provider Emergency Medicine; PCP Internal Medicine
DX: B02.9 Zoster without complications (principal)
CPT/HCPCS: 96372; 99283; J1885; A9270

== ENCOUNTER 2025-02-27 13:49 | Outpatient (RCR) | payer MEDICARE, BC, SELFPAY | END 2025-03-11 23:59 | disposition home or self-care (01) | LOC: SCTC 13:49 | PROVIDERS: PCP Family Medicine; Referring Provider Family Medicine; Visit Provider Radiology Therapeutic Radiology | DX: D64.9 Anemia, unspecified (principal); C61 Malignant neoplasm of prostate; C79.51 Secondary malignant neoplasm of bone; G89.29 Other chronic pain; Z92.3 Personal history of irradiation; Z79.818 Long term (current) use of other agents affecting estrogen receptors and estrogen levels | CPT/HCPCS: 96365; 99212; J1756; J7050; G0463 ==

== ENCOUNTER 2025-03-02 17:49 | Inpatient (IN) | payer MEDICARE, BC, SELFPAY ==
[2025-03-02] VITALS (10 sets, daily range): BP systolic 134–159; BP diastolic 70–85; PULSE 60–68; RESP 12–20; TEMP 36.8; O2SAT 90–97; BMI 40.6
--- NOTE | 2025-03-02 19:00 | PD.EDRME ---
Rapid Medical Screening Exam RME Arrival date/time: 03/02/25 17:49 Chief Complaint: Abdominal Pain Time Seen by Provider: 03/02/25 18:42 Vital signs: Vital Signs Temperature 98.3 F 03/02/25 18:35 Pulse Rate 61 03/02/25 18:35 Respiratory Rate 18 03/02/25 18:35 Blood Pressure 134/81 H 03/02/25 18:35 Pulse Oximetry (%) 96 03/02/25 18:35 Oxygen Delivery Method Room Air 03/02/25 18:35 RME Narrative: 69-year-old male presents to the ED with complaint of no bowel movement since through his colostomy. He is complaining of right lower abdominal pain as well as nausea and vomiting. I have greeted and performed a focused initial assessment of this patient. A comprehensive ED assessment and evaluation of the patient, analysis of all test results, and completion of the medical decision making process will be conducted by additional ED providers.
--- NOTE | 2025-03-02 19:09 | XR_ITS ---
Examination: CT abdomen with intravenous contrast CT pelvis with intravenous contrast 2-D coronal reconstructions 2-D sagittal reconstructions Date and time of exam:March 02, 2045 11:54 PM INDICATIONS: Onset chest and abdominal pain today, diagnosis malignant neoplasm prostate posttreatment. CTDI: vol (mGy) 25 DLP: (mGycm) 576 Technique: Multiple axial sections of the abdomen and pelvis have been obtained. 64 slice high-resolution scanner used. 3 mm axial sections have been obtained, post intravenous injection 60 cc of Isovue 370 2-D sagittal, coronal reconstructions obtained. Low dose protocols were performed. One or more of the following dose reduction techniques were used; automated exposure control, adjustment of the mA and/or KV according to patient size, use of iterative reconstruction technique. Findings: No thoracic aortic aneurysmal dilatation No pulmonary artery filling defects Heavy calcification left anterior descending coronary artery No pneumonia or pulmonary edema No visualized liver or splenic lesion No gallstones No pancreatic mass Scarring both kidneys with minimal hydronephrosis and bilateral renal calculi, no ureteral calculi Small bowel obstruction pattern with multiple fluid distended small bowel loops which may be at the anastomotic suture site Right ileostomy Colonic diverticulosis Detail in the pelvis is reduced by arthroplasties Impression : Small bowel obstruction pattern as above, suggest Gastrografin small bowel series follow-up
--- NOTE | 2025-03-02 19:09 | EKG_ITS ---
[facility] Test Date: 2025-03-02 Pat Name: TAWANDA RUBIN Department: Room: - Gender: Male Physician/Ophthalmologist: : [id number] Requested By: Elie Banda Order Number: [id number] Reading MD: Elie Banda Measurements Intervals [place] Rate: 61 P: 74 VT: 147 QRS: 27 QRSD: 91 T: 56 QT: 415 QTc: 421 Interpretive Statements SINUS RHYTHM NONSPECIFIC ST ELEVATION [0.05+ mV ST ELEVATION] Compared to ECG 12/24/2020 15:09:23 ST (T wave) deviation now present Atrial-paced complex(es) or rhythm no longer present T-wave abnormality no longer present /store/S0/[id number]/ecg/[id number].pdf
--- NOTE | 2025-03-02 19:11 | PD.EDABDPN ---
ED Abdominal Pain RME/HPI General Chief Complaint: Abdominal Pain Stated complaint: Abdominal pain X 2 days, nausea Time seen by provider: 03/02/25 18:42 Arrival date/time: 03/02/25 17:49 RME / HPI RME / HPI narrative: 69-year-old male patient with significant history of bladder cancer, he had a urostomy, came in for evaluation regarding abdominal pain. Patient has been having abdominal pain for the last 2 days, associated with nausea and vomiting. Patient also noticed that his last bowel movement was 2 days ago. Also noticed that the urostomy area is only putting small amount of urine, and has been swollen and tender. Currently taking Valtrex Lyrica and methadone for recent diagnosis of shingles. No fever noted. Related Data Home Medications ?Medication ?Instructions ?Recorded ?Confirmed metformin 500 mg tablet 500 mg PO BIDAC #0 tabs 08/05/15 12/25/24 (Glucophage) furosemide 20 mg tablet (Lasix) 20 mg PO QDAY 10/26/22 12/25/24 gabapentin 300 mg capsule 300 mg PO BID 04/25/23 12/25/24 atorvastatin 40 mg tablet 40 mg PO DAILY 05/13/23 12/25/24 enzalutamide 40 mg tablet (Xtandi) 40 mg PO DAILY 05/13/23 12/25/24 trazodone 50 mg tablet 50 mg PO QHSPRN PRN Sleep 05/13/23 12/25/24 Held on 05/13/23. Instructions: Resume on 05/14/23. Previous Rx's ?Medication ?Instructions ?Recorded amoxicillin 875 mg-potassium 1 tab PO Q12H #20 tabs 05/06/24 clavulanate 125 mg tablet prednisone 20 mg tablet 60 mg (3 x 20 mg) PO QDAY #15 tabs 02/24/25 valacyclovir 1 gram tablet 1,000 mg PO Q8H #21 tabs 02/24/25 Allergies Allergy/AdvReac Type Severity Reaction Status Date / Time bacitracin Allergy Mild Rash Verified 03/02/25 17:57 gramicidin D Allergy Mild Rash Verified 03/02/25 17:57 neomycin Allergy Mild Rash Verified 03/02/25 17:57 Review of Systems Review of Systems Narrative Review of Systems: Review of system reviewed and within normal limits except mentioned in HPI ED Exam Narrative Physical exam: VITAL SIGNS: Reviewed. GENERAL APPEARANCE: Alert and interactive, follows commands, no acute distress, HEAD AND FACE: Non-traumatic. ENT: PERRL, pink conjunctivitis, eyelid no trauma, Mucous membrane moist. NECK: Supple, nontender, no nuchal rigidity. CHEST: No tenderness, no crepitus, no paradoxical movement, no retractions. LUNGS: Clear, well ventilated, symmetric, no rales, no wheezing, no ronchi, no stridor, good breath sounds bilaterally. HEART: Regular rate, regular rhythm, no murmur, no gallops. ABDOMEN: Soft, hypoactive bowel sounds, nondistended, no guarding, diffuse abdominal tenderness, urostomy area is distended, urostomy bag small amount of urine, no rebound, no masses, RECTAL: Deferred. GENITAL: Deferred. NEUROLOGICAL: Gross motor function intact sensory function intact, Appropriate for age. MUSCULOSKELETAL: low back nontender, full range of motion. EXTREMITIES: Nontender, full range of motion. SKIN: Color pink, dry, no rash, no lacerations, no abrasions, no contusions. LYMPHATICS: Deferred. Course Quality Measures none Orders Category Date Time Status CT Screening NOW Care 03/02/25 19:10 Active EKG (ED ONLY) *Do not use* NOW Care 03/02/25 19:[address] abdomen pelvis w con Stat Exams 03/02/25 19:09 Ordered EKG (ED Only) Stat Exams 03/02/25 19:09 Draft CBC Stat Lab 03/02/25 19:19 Completed Comprehensive Metabolic Panel Stat Lab 03/02/25 19:19 Completed Lactate (Lactic Acid) Stat Lab 03/02/25 19:19 Completed Lipase Stat Lab 03/02/25 19:19 Completed Partial Thromboplastin Time Stat Lab 03/02/25 19:19 Completed Procalcitonin Stat Lab 03/02/25 19:19 Completed Prothrombin Time with INR Stat Lab 03/02/25 19:19 Completed UA, C/S IF [Urinalysis, C/S if Indicated] Stat Lab 03/02/25 20:11 Completed Urine Culture Stat Lab 03/02/25 20:11 Received Morphine Inj Med 03/02/25 20:53 Discontinued 4 mg IVP X1 ONE Ondansetron Inj [Zofran Inj] Med 03/02/25 20:53 Discontinued 4 mg IVP X1 ONE Ringers Lactated 1000 ml [Lactated Ringers] 1,000 ml Med 03/02/25 20:53 Discontinued IV 999 mls/hr cefTRIAXone/D5w 1gm IV premix [Rocephin/D5w 1gm IV Med 03/02/25 20:53 Discontinued premix] 1 gm in 50 ml IV X1 Vital Signs Vital signs: Vital Signs Temperature 98.3 F 03/02/25 18:35 Pulse Rate 61 03/02/25 18:35 Respiratory Rate 18 03/02/25 18:35 Blood Pressure 134/81 H 03/02/25 18:35 Pulse Oximetry (%) 96 03/02/25 18:35 Oxygen Delivery Method Room Air 03/02/25 18:35 Abdominal Pain MDM MDM Narrative MDM Narrative:: 69-year-old male patient with significant history of bladder cancer, he had a urostomy, came in for evaluation regarding abdominal pain. Patient has been having abdominal pain for the last 2 days, associated with nausea and vomiting. Patient also noticed that his last bowel movement was 2 days ago. Also noticed that the urostomy area is only putting small amount of urine, and has been swollen and tender. Currently taking Valtrex Lyrica and methadone for recent diagnosis of shingles. No fever noted. Care transferred to Dr Jones at 1145 pm (management Patient data External records reviewed:: None Clinical information provided by:: family Social determinants that could affect healthcare access:: none Patient has the following chronic illnesses:: Bladder cancer How is presenting disease/condition affected by chronic disease/condition?: exacerbated by Evaluation data The following diagnostics were reviewed and interpreted by me:: lab results and radiology exam(s) Lab and/or radiology exams considered but not ordered:: None Interpretation Summary: Pending results Medications / Prescriptions Medications or Prescriptions considered but not ordered:: None Medication administrations:: Medication Administration History Discontinued Medications Lactated Ringer's (Lactated Ringers) 1,000 mls @ 999 mls/hr IV .Q1H1M ONE Stop: 03/02/25 21:53 Last Infusion: 03/02/25 22:09 Dose: Infused Documented By: Admin: 03/02/25 21:33 Dose: 999 mls/hr Documented By: MILY Ceftriaxone Sodium/Dextrose (Rocephin/D5w 1gm Iv Premix) 1 gm in 50 mls @ 100 mls/hr IV X1 ONE Stop: 03/02/25 21:22 Last Infusion: 03/02/25 22:00 Dose: Infused Documented By: Admin: 03/02/25 21:33 Dose: 100 mls/hr Documented By: CG Morphine Sulfate (Morphine Sulf Inj 10 Mg/Ml Vial) 4 mg IVP X1 ONE Stop: 03/02/25 20:54 Last Admin: 03/02/25 21:32 Dose: 4 mg Documented By: CG Ondansetron HCl (Ondansetron Inj 2 Mg/Ml Inj 2 Ml) 4 mg IVP X1 ONE; Protocol Stop: 03/02/25 20:54 Last Admin: 03/02/25 21:32 Dose: 4 mg Documented By: MILY IV fluids morphine Zofran ceftriaxone IV Consultations Consultation(s) initiated? (list below): No Diagnosis Differential diagnosis abdominal pain: abdominal pain and constipation Most likely diagnosis given after review of the tests above:: Abdominal pain Admission Indicated Admission indicated?: not indicated (Pending results) Admission Request Was there a request for admission?: No Disposition Plan Disposition Plan: other (specify) (Pending results) Discharge Plan Prescriptions/Referrals Prescriptions/Med Rec: No Action furosemide [Lasix] 20 mg tablet 20 mg PO QDAY gabapentin 300 mg capsule 300 mg PO BID metformin [Glucophage] 500 MG tablet 500 mg PO BIDAC Qty: 0 atorvastatin 40 mg tablet 40 mg PO DAILY Patient Comments: TAKE 1 TABLET BY MOUTH ONCE DAILY FOR CHOLESTEROL FOR 90 DAYS trazodone 50 mg tablet 50 mg PO QHSPRN PRN (Reason: Sleep) Patient Comments: TAKE 1 TABLET BY MOUTH TWICE DAILY Xtandi 40 mg tablet 40 mg PO DAILY amoxicillin-pot clavulanate 875-125 mg tablet 1 tab PO Q12H Qty: 20 0RF valacyclovir 1 gram tablet 1,000 mg PO Q8H Qty: 21 0RF prednisone 20 mg tablet 60 mg PO QDAY Qty: 15 0RF Referrals: No Primary/Family,Physician [Primary Care Provider] - In 1 week Problem List Clinical Impression: Abdominal pain, Constipation Patient/Caregiver Discharge Instructions Print Language: Greek
[2025-03-02 19:25] LABS: Lactate (Lactic Acid) 1.3 mMol/L (0.4-2.0)
[2025-03-02 19:26] LABS: Basophils % (Auto) 0 % (0-2.5); Eosinophils % (Auto) 0 % (0-10); Hematocrit 40.3 % (41.0-53.0); Hemoglobin 14.4 g/dL (13.5-16.0); Immature Granulocytes % (Auto) 0 % (0-0); Immature Granulocytes Auto 0.03 Thou/mm3 (0.00-0.00); Lymphocytes # (Auto) 0.4 Thou/mm3 (1.0-4.8); Lymphocytes % (Auto) 5 % (10-50); Mean Corpuscular HGB Conc 35.7 g/dl (31.0-37.0); Mean Corpuscular Hemoglobin 31.5 pg (25.0-35.0); Mean Corpuscular Volume 88 fL (80-100); Monocytes # (Auto) 0.6 Thou/mm3 (0.0-0.8); Monocytes % (Auto) 7 % (0-12); Neutrophils # (Auto) 7.7 Thou/mm3 (1.8-7.7); Neutrophils % (Auto) 87 % (37-80); Nucleated Red Blood Cell % 0 /100 WBC (0); Platelet Count 220 Thou/mm3 (140-440); RDW Standard Deviation 46.6 fL (35.1-43.9); Red Blood Count 4.57 Miln/mm3 (4.50-5.90); White Blood Count 8.9 Thou/mm3 (3.8-10.6)
[2025-03-02 19:47] LABS: Partial Thromboplastin Time 24.8 Seconds (22.0-36.0)
[2025-03-02 19:55] LABS: Alanine Aminotransferase 19 U/L (10-49); Albumin, Serum 4.7 gm/dL (3.4-4.8); Alkaline Phosphatase 109 U/L (46-116); Anion Gap 9 (7-16); Aspartate Amino Transferase 21 U/L (0-34); BUN/Creatinine Ratio 16 Ratio (12-20); Bilirubin,Total 0.9 mg/dL (0.3-1.2); Blood Urea Nitrogen 18 mg/dL (9-23); Calcium 10.1 mg/dL (8.3-10.6); Calcium (Corrected) 10.1 mg/dL (8.5-10.1); Carbon Dioxide 32.2 mMol/L (20.0-31.0); Chloride 96 mMol/L (98-107); Creatinine (Component) 1.1 mg/dL (0.6-1.3); Estimated Creatinine Clearance 91.8 mL/min (>60); Globulin 2.3 gm/dL (2.3-3.5); Glucose 149 mg/dL (74-106); Lipase 21 U/L (12-53); Osmolality,Calculated 278 (275-295); Potassium 4.1 mMol/L (3.4-5.1); Procalcitonin 0.06 ng/ml (0.0-0.49); Sodium 137 mMol/L (136-145); eGFR > 60 See Note
[2025-03-02 20:21] LABS: Collection Type, Urine Clean Catch; Squamous Epithelial Cell,Urine 0 /hpf (0-5)
[2025-03-02 20:36] LABS: Bilirubin,Urine Negative (Negative); Blood,Urine Negative (Negative); Clarity,Urine Turbid (Clear/Hazy); Color,Urine Lt-Yellow (Lt Yel-Yel); Culture Indicated,Urine Yes; Glucose, Urine Negative (Negative); Ketones,Urine Negative (Negative); Leukocyte Esterase,Urine Positive (Negative); Nitrite,Urine Positive (Negative); Protein,Urine 1+ (Neg - Trace); RBC,Urine 5 /hpf (0-3); Specific Gravity,Urine 1.011 (1.001-1.035); Uric Acid Crystals,Urine 2+; Urobilinogen,Urine Negative mg/dL (0.0-1.0); WBC,Urine 91 /hpf (0-5)
[2025-03-02] MEDS: MORPHINE SULF INJ 10 MG/ML VIAL 4 MG IVP (21:32)
[2025-03-02] MEDS: ONDANSETRON INJ 2 MG/ML INJ 2 ML 4 MG IVP (21:32)
[2025-03-02] MEDS: RINGERS LACTATED 1000 ML 1,000 ML 999 ML IV (21:33)
[2025-03-02] MEDS: cefTRIAXone/D5w 1gm IV premix 1 GM/50 ML BAG IV (21:33)
[2025-03-03] VITALS (20 sets, daily range): BP systolic 134–161; BP diastolic 64–97; PULSE 61–76; RESP 10–18; TEMP 36.1–37.2; O2SAT 84–96; BMI 39.2
--- NOTE | 2025-03-03 | XR_ITS ---
Examination: Abdomen AP single view Technique: AP portable supine abdomen, single view Exam date and time: March 03, 2025 1551 hours INDICATIONS: Abdominal pain and distention this week, 6 hour delayed film post small bowel series today. FINDINGS: Contrast in distended small bowel loops IMPRESSION: Small bowel obstruction pattern. Recommend follow-up films 6:00 PM, 8:00 PM, 10:00 PM
--- NOTE | 2025-03-03 | XR_ITS ---
Examination: Abdomen AP single view Technique: AP portable supine abdomen, single view Exam date and time: March 03, 2025 1913 hours INDICATIONS: Abdominal pain and distention today, 10 hour delay film post small bowel series FINDINGS: Some contrast is now present in the colon IMPRESSION: Small bowel obstruction, but incomplete, recommend follow-up abdomen film 10:00 PM
--- NOTE | 2025-03-03 01:59 | PRELIM_ITS ---
CT scan of the abdomen and pelvis with intravenous contrast (axial sections with sagittal and coronal reformats) March 02, 2025 2350 hours. MIP reconstructed images were also provided. Clinical History: Abdominal pain Comparison: No prior study is available for comparison. Findings: Bibasilar streaky atelectasis is present. A small hiatal hernia is present. There is mild wall thickening of the distal esophagus/ gastroesophageal junction, reflux esophagitis cannot be excluded. The esophagus is fluid filled and mildly dilated. The urinary bladder is not identified, likely surgically absent. Ureteric diversion is seen with right lower quadrant ileostomy. There is peristomal herniation within the right lower quadrant ileostomy, containing fat and mildly dilated small bowel loop. The stomach is distended with fluid. There are fluid filled and dilated small bowel loops in the mid and lower abdomen with transition in the right lower abdomen at the level of the anastomotic suture (axial image [id number] series 2). The distal small bowel loops are nondilated. The appendix is not visualized. The colon is prominent with air and stool. There are multiple colonic diverticula without evidence of diverticulitis. Mild hydroureteronephrosis and periureteric/perinephric fat stranding are seen bilaterally. Nonobstructing renal calculi are seen bilaterally. No ureteric calculus is seen. Bilateral renal cortical thinning and scar are seen. The pancreas is atrophic. The liver, gallbladder, spleen and adrenals are unr emarkable. There are subcentimeter mesenteric and retroperitoneal lymph nodes. The aorta and its branches demonstrate atheromatous calcification without evidence of aneurysm. No evidence of free air or abscess. Trace interloop is seen in the right lower abdomen. The evaluation of the pelvis is limited by streak artifact from bilateral hip prosthesis. Osseous degenerative changes are noted. 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 Impression: 1. Findings suggestive of high grade small bowel obstruction with transition as described, which may be due to adhesions or anastomotic stricture. 2. Bilateral hydroureteronephrosis and periureteric/perinephric fat stranding as described; the possibility of reflux or urinary tract infection cannot be excluded. 3. Nonobstructing renal calculi bilaterally. No ureteric calculus. 4. Other findings as described above. 5. Suggest clinical correlation, comparison with prior studies, follow up or further evaluation as clinically indicated. Discussion Details: Results verbally communicated to : Dr. Saldaña at 01:49 AM 03/03/2025 Report Electronically Signed By: Arya Fung 03/03/2025 1:58:41 AM [EST]
--- NOTE | 2025-03-03 02:06 | PD.EDADDENDU ---
Emergency Room Addendum <Amberly Manzanares - Last Filed: 03/03/25 03:07> Addendum Narrative: I took over the care from previous shift physician at 12 AM on 03/03/2025. See previous notes for complete H & P and ED course. I reviewed all diagnostic test results. My review of the Abdomen/Pelvis CT report is findings suggestive of high grade small bowel obstruction with transition as described, which may be due to adhesions or anastomotic stricture. Bilateral hydroureteronephrosis and periureteric/perinephric fat stranding as described; the possibility of reflux or urinary tract infection cannot be excluded. Nonobstructing renal calculi bilaterally. No ureteric calculus. Suggest clinical correlation, comparison with prior studies, follow up or further evaluation as clinically indicated. Diagnoses include: SBO. Treatment here included Ringer's Lactated, Rocephin 1 G, Dilaudid 1 mg, Morphine 4 mg, Zofran 4 mg. 0211: I discussed the case with Dr. Silva, our operating room surgical technologist. About the presentation and exam and diagnostics and treatments here. And need of further care in the hospital. I discussed the case with our hospitalist. About the presentation and exam and diagnostics and treatments here. And need of further care in the hospital. Will accept the patient. Davion Saldaña MD <Davion Saldaña MD - Last Filed: 03/03/25 19:13> Addendum Narrative: I took over the care from Elie Banda NP at 11 PM on 03/02/2025. See previous notes for complete H & P and ED course. I reviewed all diagnostic test results. Remarkable for abdominal CT showing SBO. I discussed the case with our surgeon and our hospitalist. About the presentation and exam and diagnostics and treatments here. And need of further care in the hospital. Will accept the patient. Davion Saldaña MD
[2025-03-03] MEDS: HYDROmorphone INJ 2 MG/ML VIAL 1 MG IVP (02:39)
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
[2025-03-03 03:04] LABS: Lactate (Lactic Acid) 1.1 mMol/L (0.4-2.0)
[2025-03-03 03:16] LABS: Basophils % (Auto) 0 % (0-2.5); Eosinophils % (Auto) 0 % (0-10); Hematocrit 39.4 % (41.0-53.0); Hemoglobin 13.8 g/dL (13.5-16.0); Immature Granulocytes % (Auto) 1 % (0-0); Immature Granulocytes Auto 0.04 Thou/mm3 (0.00-0.00); Lymphocytes # (Auto) 0.3 Thou/mm3 (1.0-4.8); Lymphocytes % (Auto) 3 % (10-50); Mean Corpuscular Hemoglobin 31.2 pg (25.0-35.0); Mean Corpuscular Volume 89 fL (80-100); Monocytes # (Auto) 0.5 Thou/mm3 (0.0-0.8); Monocytes % (Auto) 6 % (0-12); Neutrophils # (Auto) 7.7 Thou/mm3 (1.8-7.7); Neutrophils % (Auto) 90 % (37-80); Nucleated Red Blood Cell % 0 /100 WBC (0); Platelet Count 213 Thou/mm3 (140-440); RDW Standard Deviation 47.8 fL (35.1-43.9); Red Blood Count 4.42 Miln/mm3 (4.50-5.90); White Blood Count 8.6 Thou/mm3 (3.8-10.6)
[2025-03-03] MEDS: ONDANSETRON INJ 2 MG/ML INJ 2 ML 4 MG IVP (03:22)
[2025-03-03] MEDS: LIDOCAINE JELLY 2% (Urojet) 10 ML TUBE TOP (03:24)
[2025-03-03] MEDS: SODIUM CHLORIDE 0.9% 1000 ML 1,000 ML 999 ML IV (03:25)
[2025-03-03 03:27] LABS: Alanine Aminotransferase 16 U/L (10-49); Albumin, Serum 4.5 gm/dL (3.4-4.8); Albumin/Globulin Ratio 2.4 (1.2-2.2); Alkaline Phosphatase 102 U/L (46-116); Anion Gap 8 (7-16); Aspartate Amino Transferase 19 U/L (0-34); BUN/Creatinine Ratio 17 Ratio (12-20); Bilirubin,Total 0.7 mg/dL (0.3-1.2); Blood Urea Nitrogen 15 mg/dL (9-23); Calcium 9.6 mg/dL (8.3-10.6); Calcium (Corrected) 9.6 mg/dL (8.5-10.1); Carbon Dioxide 32.3 mMol/L (20.0-31.0); Chloride 97 mMol/L (98-107); Creatinine (Component) 0.9 mg/dL (0.6-1.3); Estimated Creatinine Clearance 112.2 mL/min (>60); Globulin 1.9 gm/dL (2.3-3.5); Glucose 173 mg/dL (74-106); Magnesium 2.6 mg/dL (1.6-2.6); Osmolality,Calculated 278 (275-295); Potassium 4.2 mMol/L (3.4-5.1); Sodium 137 mMol/L (136-145); Total Protein 6.4 gm/dL (5.7-8.2); eGFR > 60 See Note
[2025-03-03] MEDS: PIPER/TAZO INJ 4.5 GM in SODIUM CHLORIDE 0.9% (POP) 100 ML IV ×4 (03:31→17:08)
--- NOTE | 2025-03-03 03:36 | XR_ITS ---
Examination: AP chest single view TECHNIQUE: AP portable upright chest single view Date and time: March 03, 2025, 0341 hours Comparison June 20, 2024 INDICATIONS: Post orogastric tube placement FINDINGS: Orogastric tube in the stomach satisfactory position Mild prominence left ventricle Cardiac leads satisfactory position No pneumonia IMPRESSION: Orogastric tube in the stomach satisfactory position
[2025-03-03] MEDS: INSULIN LISPRO (AdmeLOG) 1 UNIT/0.01 ML UNIT SC (05:11)
[2025-03-03] MEDS: PANTOPRAZOLE INJ 40 MG VIAL IVP (07:27)
--- NOTE | 2025-03-03 07:35 | PD.SURCONS ---
HPI Consult details Consult date: 03/03/25 Reason for consultation narrative: Patient was seen in consultation because of possible small bowel obstruction. History of present illness: History of present illness revealed that the patient was in his usual health until 3 days ago when he started having some abdominal pain and distention associated with vomiting. Patient has not had any bowel movements in 3 days nor has he passed any gas. Patient has a history of prostatic carcinoma which has metastasized to the bladder and surrounding tissues which required resection and urostomy through the ileal conduit. Now the cancerous metastasized to the bone and he is under treatment at our cancer treatment center both with Dr. Saldaña and Dr. Slater. Patient also is being followed by Dr. Rios for a urological problem. His surgery was performed in [facility] by Dr. Marcus in 2020. He has not had any problem until now. Past Medical History Past Medical History NEUROLOGIC: Positive Neurological Disorders, Transient Ischemic Attacks (TIA) and Head Trauma; Negative Seizures CARDIAC: Positive Cardiac Disorders, Cardiac Arrhythmia and Hypercholesterolemia; Negative Congestive Heart Failure or Hypertension RESPIRATORY: Negative Chronic Obstructive Pulmonary Disease (COPD), Asthma or Sleep Apnea GASTROINTESTINAL: Positive Gastrointestinal Disorders, Ulcer and Obesity GENITOURINARY: Positive Genitourinary Disorders, Kidney Stones, Inguinal Hernia, Prostate Cancer and Benign Prostatic Hyperplasia; Negative Renal Disease MUSCULOSKELETAL: Positive Musculoskeletal Disorders, Bone Cancer (T3 SPINE), Arthritis, Carpal Tunnel Syndrome and Fractures ENT: Positive Head Trauma ENDOCRINE: Positive Endocrine Disorders and Diabetes Mellitus Type 2; Negative Diabetes Mellitus Type 1 HEMATOLOGIC: Negative Blood Disorders or Sickle Cell Disease PSYCHO/SOCIAL: Positive Depression and Anxiety OTHER HISTORY: Positive Hospitalization, Autoimmune Disease, Falls, Radiation Therapy, MRSA, Measles, Rubella (Jordanian Measles), Cancer and Prostate Cancer; Negative Shingles, Blood Transfusions, Blood Transfusion Reaction, Anesthesia Reactions, Chemotherapy, Chicken Pox or Mumps Family History FAMILY HISTORY: Positive Family Psychiatric Problems, Family Respiratory Disorders, Family Gastrointestinal Problems and Family Surgery; Negative Family Cardiac Disorders, Family Cancer or Family Anesthesia Reaction Surgical History SURGICAL: Positive Pacemaker, Eye Surgery, Tonsillectomy, Abdominal Surgery, Joint Replacement and Amputation; Negative Cardiac Surgery Social History SMOKING STATUS: Never smoker SECOND HAND EXPOSURE: No Meds Home Medications and Allergies Home Medications ?Medication ?Instructions ?Recorded ?Confirmed ?Type metformin 500 mg tablet 500 mg PO BIDAC #0 tabs 08/05/15 12/25/24 History (Glucophage) furosemide 20 mg tablet (Lasix) 20 mg PO QDAY 10/26/22 12/25/24 History gabapentin 300 mg capsule 300 mg PO BID 04/25/23 12/25/24 History atorvastatin 40 mg tablet 40 mg PO DAILY 05/13/23 12/25/24 History enzalutamide 40 mg tablet (Xtandi) 40 mg PO DAILY 05/13/23 12/25/24 History trazodone 50 mg tablet 50 mg PO QHSPRN PRN Sleep 05/13/23 12/25/24 History Held on 05/13/23. Instructions: Resume on 05/14/23. Allergies Allergy/AdvReac Type Severity Reaction Status Date / Time bacitracin Allergy Mild Rash Verified 03/02/25 17:57 gramicidin D Allergy Mild Rash Verified 03/02/25 17:57 neomycin Allergy Mild Rash Verified 03/02/25 17:57 Exam Vital Signs Temp Pulse Resp BP Pulse Ox O2 Del Method O2 Flow Rate 98.4 F 68 14 161/97 H 87 L Nasal Cannula 2 03/03/25 02:19 03/03/25 03:30 03/03/25 03:30 03/03/25 03:00 03/03/25 03:30 03/03/25 02:19 03/03/25 02:42 Narrative Exam Physical examination revealed an obese white male who appeared to be in his stated age. He is 6 foot 1 inch tall weighing 297 pounds with BMI of 39.2 Constitutional Constitutional: moderate distress Routine Abdominal Exam Comments: Examination of the abdomen showed distention and hypoactive bowel sounds. There seems to be some fullness around the ileal conduit which is in the lower abdomen in the midline. He is tender around that area. I do not know whether he has developed a hernia in this region. No peritoneal signs on the abdomen Routine Rectal Exam Comments: Deferred Routine Exam Comments: As above Results Results: Laboratory Laboratory Narrative: Patient's laboratory is within normal limits Results: Imaging Imaging narrative: CT scan of the abdomen showed dilated loops of small bowel suggesting small bowel obstruction. They advised Gastrografin small bowel series Assessment & Plan Additional Assessment Additional comments: Impression: Possible partial small bowel obstruction Status post carcinoma of the prostate treated with resection and radiation and chemotherapy and ileal conduit Morbid obesity Plan Plan: I cannot rule out herniation at the site of ileal conduit which may be causing this problem. However we will start him on small bowel series with Gastrografin to rule out obstruction and may be clear the obstruction with Gastrografin challenge. We shall follow the patient with you
--- NOTE | 2025-03-03 07:41 | XR_ITS ---
Examination: Small bowel series with KUBs Date and time: March 03, 2025, 0813 hrs. Indications: Abdominal pain and distention this week. Technique And Findings: [employer] AP supine abdomen demonstrates air distended small bowel loops Patient received 150 cc Gastrografin with 150 cc water Abdomen films immediate, 30 minutes, 1 hour, 2 hours and 5 hours obtained Contrast in distended small bowel loops Impression: Small bowel obstruction pattern Recommend follow-up films 3:00 PM, 5:00 PM, 7:00 PM
[2025-03-03] MEDS: MORPHINE SULF INJ 10 MG/ML VIAL IVP ×2 (10:30→22:10)
--- NOTE | 2025-03-03 12:05 | ESPR_ITS ---
<Statement entered by Duncan Bloom MD - 03/14/25 07:47> I reviewed above note and agree with findings and plans. I have also personally examined the patient with medicine team and went over assessment and plan with medical team including spring internship and resident physician. Documentation for date of: 03/03/25 Subjective Subjective Interval history: Pt is an overnight admit. Pt is seen and examined at bedside this morning. Pt continues to complain of significant abdominal pain, although abdomen is soft, it is very tender to palpation. He does not complain of any nausea or vomitting, which has resolved. Pt had NG tube placed on LIS in the ED, with total output of 1L. Pt was seen by gen surgery this morning who recommended to start GI series, will make further recommendations based of the GI series imaging. Pt may need to be transfer if pt requires surgical intervention due to pt's extensive surgery history including urostomy bag. vitals are stable, labs are reviewed. Urinalysis is positive for UTI, pt is currently on broad spectrum antibiotics. Exam Vital Signs Temp Pulse Resp BP Pulse Ox O2 Del Method O2 Flow Rate 98.9 F 65 18 138/67 H 94 L Nasal Cannula 2 03/03/25 11:53 03/03/25 11:53 03/03/25 11:53 03/03/25 11:53 03/03/25 11:53 03/03/25 11:53 03/03/25 11:53 Narrative Exam GENERAL: A&Ox3 . Awake, in acute distress due to diffuse abdominal pain NEURO: no focal neurological deficits HEENT: Atraumatic, Normocephalic. mucous membranes moist. Eyes open, symmetrical, & clear HEART: Normal Heart Sounds LUNGS: Clear to auscultation with no wheezing or crackles. ABDOMEN: soft, distended, diffuse tenderness to palpation, no bowel sounds heard, urostomy bag present lateral to the umbilicus on right SKIN: No Rash or ecchymoses, crusted round lesions with scabs on upper chest EXTREMITIES: No edema, tenderness, able to move all 4 extremities, pedal pulses palpated Objective Labs 03/04/25 04:56 03/04/25 04:56 Labs: Laboratory Results - last 24 hr 03/02/25 03/02/25 03/03/25 19:19 20:11 02:56 WBC 8.9 8.6 RBC 4.57 4.42 L Hgb 14.4 13.8 Hct 40.3 L 39.4 L MCV 88 89 MCH 31.5 31.2 MCHC 35.7 35.0 RDW Std Deviation 46.6 H 47.8 H Plt Count 220 213 Neut % (Auto) 87 H 90 H Lymph % (Auto) 5 L 3 L [place] % (Auto) 7 6 Eos % (Auto) 0 0 Baso % (Auto) 0 0 Neut # (Auto) 7.7 7.7 Lymph # (Auto) 0.4 L 0.3 L [place] # (Auto) 0.6 0.5 Eos # (Auto) 0.0 0.0 Baso # (Auto) 0.0 0.0 Immature Gran # (Auto) 0.03 H 0.04 H Absolute Nucleated RBC 0.00 0.00 Immature Gran % 0 1 H Nucleated RBC % 0 0 PT 11.0 INR 1.0 APTT 24.8 Sodium 137 137 Potassium 4.1 4.2 Chloride 96 L 97 L Carbon Dioxide 32.2 H 32.3 H Anion Gap 9 8 BUN 18 15 Creatinine 1.1 0.9 Estim Creat Clear Calc 91.8 112.2 eGFR > 60 > 60 BUN/Creatinine Ratio 16 17 Glucose 149 H 173 H Calculated Osmolality 278 278 Lactic Acid 1.3 1.1 Calcium 10.1 9.6 Corrected Calcium 10.1 9.6 Magnesium 2.6 Total Bilirubin 0.9 0.7 AST 21 19 ALT 19 16 Alkaline Phosphatase 109 102 Total Protein 7.0 6.4 Albumin 4.7 4.5 Globulin 2.3 1.9 L Albumin/Globulin Ratio 2.0 2.4 H Lipase 21 Procalcitonin 0.06 Ur Collection Type Clean Catch Urine Color Lt-Yellow Urine Clarity Turbid A Urine pH 8.0 H Ur Specific [place] 1.011 Urine Protein 1+ A Urine Glucose (UA) Negative Urine Ketones Negative Urine Blood Negative Urine Nitrite Positive Urine Bilirubin Negative Urine Urobilinogen (Auto) Negative Ur Leukocyte Esterase Positive Urine RBC 5 H Urine WBC 91 H Ur Squamous Epith Cells 0 Uric Acid Crystals 2+ A Urine Bacteria None Ur Culture Indicated? Yes Quality Measures Quality Measures none Advance care planning discussed with:: patient Assessment & Plan Assessment Current Active Medications: Generic Name Dose Route Start Last Admin Trade Name Freq PRN Reason Stop Dose Admin Dextrose 25 ml 03/03/25 02:42 Dextrose 50%-Water Inj 50 Ml Syringe IV 04/02/25 02:41 Q15MIN PRN BG 50-70 responsive npo pt Dextrose 50 ml 03/03/25 02:42 Dextrose 50%-Water Inj 50 Ml Syringe IV 04/02/25 02:41 Q15MIN PRN BG <50 OR BG <70 & pt unresponsive Glucagon 1 mg 03/03/25 02:42 Glucagon Inj 1 Mg Vial IM Q15MIN PRN BG <70, and no IV access Hydromorphone HCl 0.5 mg 03/03/25 09:44 Hydromorphone Inj 2 Mg/Ml Vial IVP 03/08/25 02:41 Q3H PRN BREAKTHROUGH PAIN (SEVERE) Piperacillin Sod/Tazobactam 100 mls @ 200 mls/hr 03/03/25 02:45 03/03/25 11:25 Sod 4.5 gm/ Sodium Chloride IV 03/10/25 02:44 200 mls/hr Q6HR JILL Administration Acyclovir Sodium 800 mg/ 266 mls @ 266 mls/hr 03/03/25 14:00 Sodium Chloride IV 03/10/25 13:59 Q8HR [facility] Insulin Human Lispro 0 unit 03/03/25 06:00 03/03/25 11:48 Insulin Lispro (Admelog) 1 Unit/0.01 Ml Unit SC 04/02/25 05:59 Not Given Q6HR [facility] Protocol Morphine Sulfate 1 mg 03/03/25 02:42 03/03/25 10:30 Morphine Sulf Inj 10 Mg/Ml Vial IVP 03/08/25 02:41 1 mg Q2H PRN Administration PAIN SCALE 7-10 (Severe Ondansetron HCl 4 mg 03/03/25 02:42 Ondansetron Inj 2 Mg/Ml Inj 2 Ml IVP 04/02/25 02:41 Q6H PRN NAUSEA OR VOMITING Protocol Pantoprazole Sodium 40 mg 03/03/25 09:00 03/03/25 07:27 Pantoprazole Inj 40 Mg Vial IVP 04/02/25 08:59 40 mg QDAY JILL Administration Plan Mr. Antonio is a 69-year-old male with past medical history of metastatic prostate cancer currently on chemotherapy, bladder resections s/p urostomy bag, bradycardia s/p pacemaker, TIA, and DM2 was admitted to the hospital on 03/03/2025 for SBO. #SBO #Intractable nausea and vomiting #Abdominal distention Patient states that he has not had a bowel in since and he has tried his normal bowel regimen, but has been unable to pass any stools or get this at this time. Patient also noticed abdominal distention and on physical exam was very tender to mild palpation and guarding was appreciated. Abdomen/pelvis CT on preliminary report showed high-grade small bowel obstruction with transition This is most likely mechanical SBO given the history of abdominal surgeries Lactic acid was initially 1.3 and patient did not have any leukocytosis, but given physical exam repeated lactic acid Plan: -Zosyn started 03/03- -Pain management with morphine and Dilaudid -N.p.o. -NG tube in place with light intermittent suction was started on admission with total output of 1L -General Surgery consulted, appreciate commendations -GI series ordered #Shingles Patient was previously seen in the ED around 1 week ago for new onset shingles Patient has been on treatment for this, but still some fluid-filled vesicles are appreciated in the upper chest wall Plan: -Acyclovir 800mg Q8H -Contact precautions -Will continue to monitor contact #UTI -Urinalysis is positive for nitrites, leukocyte esterase and WBC 91 -Urine culture pending, previous cultures positive for citrobacter freundii which is sensitive to zosyn -Pt is on zosyn 03/03- #Non -Insulin dependent type 2 Diabetes -On admission BG 173, A1c 6.2 on 03/01/25 -Pt's home medication include metformin 500mg BID -Insulin sliding scale ordered -Hypoglycemia protocol ordered with Accu cheks AC #Hx of bladder resection s/p urostomy bag #Hx of metastatic prostate cancer #Hx of bradycardia s/p pacemaker #Hx of TIA Pending medication conciliation to start home meds. Disposition: Patient admitted to med surg for SBO and small bowel series ordered Diet: NPO GI prophylaxis: protonix DVT prophylaxis: SCDs in the setting of possible surgical intervention Code: Full Assessment and plan discussed with my attending physician Dr. Merle Garza (PGY-1)- Internal medicine resident
--- NOTE | 2025-03-03 22:00 | XR_ITS ---
Examination: Abdomen AP single view Technique: AP portable supine abdomen, single view Exam date and time: March 03, 2025 2148 hours INDICATIONS: Abdominal pain and distention today, small bowel obstruction pattern on CT abdomen study yesterday, 13 hour delayed film will small bowel series FINDINGS: Incomplete bowel obstruction, contrast present in the colon Recommendation 1 follow-up abdomen film at 6:00 AM IMPRESSION: Incomplete small bowel bowel obstruction
[2025-03-04] VITALS (10 sets, daily range): BP systolic 133–163; BP diastolic 68–80; PULSE 59–74; RESP 16–19; TEMP 35.9–36.4; O2SAT 91–96
[2025-03-04] MEDS: PIPER/TAZO INJ 4.5 GM in SODIUM CHLORIDE 0.9% (POP) 100 ML IV ×5 (00:03→23:42)
[2025-03-04] MEDS: INSULIN LISPRO (AdmeLOG) 1 UNIT/0.01 ML UNIT SC (00:12)
[2025-03-04 06:11] LABS: Basophils % (Auto) 0 % (0-2.5); Eosinophils % (Auto) 0 % (0-10); Hematocrit 38.5 % (41.0-53.0); Hemoglobin 13.3 g/dL (13.5-16.0); Immature Granulocytes % (Auto) 1 % (0-0); Immature Granulocytes Auto 0.03 Thou/mm3 (0.00-0.00); Lymphocytes # (Auto) 0.3 Thou/mm3 (1.0-4.8); Lymphocytes % (Auto) 5 % (10-50); Mean Corpuscular HGB Conc 34.5 g/dl (31.0-37.0); Mean Corpuscular Hemoglobin 31.5 pg (25.0-35.0); Mean Corpuscular Volume 91 fL (80-100); Monocytes # (Auto) 0.6 Thou/mm3 (0.0-0.8); Monocytes % (Auto) 9 % (0-12); Neutrophils # (Auto) 5.2 Thou/mm3 (1.8-7.7); Neutrophils % (Auto) 85 % (37-80); Nucleated Red Blood Cell % 0 /100 WBC (0); Platelet Count 195 Thou/mm3 (140-440); RDW Standard Deviation 50.3 fL (35.1-43.9); Red Blood Count 4.22 Miln/mm3 (4.50-5.90); White Blood Count 6.2 Thou/mm3 (3.8-10.6)
[2025-03-04 06:24] LABS: Alanine Aminotransferase 16 U/L (10-49); Albumin, Serum 4.1 gm/dL (3.4-4.8); Albumin/Globulin Ratio 2.1 (1.2-2.2); Alkaline Phosphatase 92 U/L (46-116); Anion Gap 6 (7-16); Aspartate Amino Transferase 17 U/L (0-34); BUN/Creatinine Ratio 23 Ratio (12-20); Bilirubin,Total 0.9 mg/dL (0.3-1.2); Blood Urea Nitrogen 21 mg/dL (9-23); Calcium 9.1 mg/dL (8.3-10.6); Calcium (Corrected) 9.1 mg/dL (8.5-10.1); Carbon Dioxide 35.1 mMol/L (20.0-31.0); Chloride 104 mMol/L (98-107); Creatinine (Component) 0.9 mg/dL (0.6-1.3); Estimated Creatinine Clearance 113.2 mL/min (>60); Glucose 146 mg/dL (74-106); Magnesium 2.7 mg/dL (1.6-2.6); Osmolality,Calculated 294 (275-295); Potassium 4.6 mMol/L (3.4-5.1); Sodium 145 mMol/L (136-145); Total Protein 6.1 gm/dL (5.7-8.2); eGFR > 60 See Note
--- NOTE | 2025-03-04 08:00 | XR_ITS ---
Examination: Abdomen AP single view Technique: AP portable supine abdomen, single view Exam date and time: March 04, 2025 0812 hours INDICATIONS: Abdominal pain and distention this week, 23 hour delayed film post small bowel series yesterday FINDINGS: Contrast now present throughout the colon Air distended small bowel loops are again noted IMPRESSION: Incomplete small bowel obstruction, no further films are needed
[2025-03-04] MEDS: PANTOPRAZOLE INJ 40 MG VIAL IVP (09:09)
--- NOTE | 2025-03-04 09:37 | PC.SS ---
Follow up note: Having bowel series. On IV antibiotic. On IV antiviral medication.
--- NOTE | 2025-03-04 10:07 | PD.SURPROG ---
Documentation for date of: 03/04/25 Subjective Subjective Brief History: History of present illness revealed that the patient was in his usual health until 3 days ago when he started having some abdominal pain and distention associated with vomiting. Patient has not had any bowel movements in 3 days nor has he passed any gas. Patient has a history of prostatic carcinoma which has metastasized to the bladder and surrounding tissues which required resection and urostomy through the ileal conduit. Now the cancerous metastasized to the bone and he is under treatment at our cancer treatment center both with Dr. Saldaña and Dr. Slater. Patient also is being followed by Dr. Rios for a urological problem. His surgery was performed in [facility] by Dr. Marcus in 2020. He has not had any problem until now. Narrative: Patient does not have any small bowel obstruction. Patient is wanting to eat and is passing some flatus Exam Vital Signs Temp Pulse Resp BP Pulse Ox O2 Del Method O2 Flow Rate 97.5 F 65 19 158/76 H 93 L Nasal Cannula 2 03/04/25 08:00 03/04/25 08:00 03/04/25 08:00 03/04/25 08:00 03/04/25 08:00 03/04/25 08:00 03/04/25 08:00 His vital signs are normal Routine Abdominal Exam Comments: Abdominal examination still shows tenderness around the ileal conduit Results Results: Laboratory Laboratory Narrative: Laboratory results are within normal limits Results: Imaging Imaging narrative: Small bowel series today showed contrast was gone into the colon but still remains considerable dilated small bowel loops Assessment & Plan Assessment Additional comments: Impression: Incomplete small bowel obstruction Plan Plan: We shall remove the NG tube and start the clear liquid diet
--- NOTE | 2025-03-04 15:25 | PC.SS ---
SS met with patient regarding his d/c plan. Pt is alert/oriented. Pt was admitted for SBO. Pt confirmed demographic and contact information is correct on facesheet. Pt resides alone. Pt ambulates independently without assistance or DME. Pt is ok with all ADLs. Patient?s pharmacy of choice is [facility]. Pt named his sister, Alma Munoz medical decision maker if he is unable. SS provided verbal options for d/c to home or SNF. Patient?s choice is to return home upon d/c. Pt states he is diabetic, has glucometer, and test strips. Pt states his sister has Power of Seismic Interpreter. Pt states his sister will provide transportation home. Pt followed up with PCP 2 weeks ago. D/C plan: Return home Next of Kin: Alma Munoz, sister, phone# [phone] PCP: [facility] will establish PCP with Dr. Hernández Address: Correct on facesheet
--- NOTE | 2025-03-04 15:47 | ESPR_ITS ---
<Statement entered by Duncan Bloom MD - 03/14/25 07:47> I reviewed above note and agree with findings and plans. I have also personally examined the patient with medicine team and went over assessment and plan with medical team including product development intern and resident physician. Documentation for date of: 03/04/25 Subjective Subjective Interval history: No acute overnight events reported. Pt is seen and examined at bedside this morning. Pt endorses to significant improvement in his symptoms. Pt states his abdominal pain is much better, and he is passing gas but no bowel movement yet. Gastrograffin shows incomplete obstruction, pt is requesting diet. no output from NG tube noted therefore will discontinue NG tube and started pt on clear liquid diet and advance as tolerated. Exam Vital Signs Temp Pulse Resp BP Pulse Ox O2 Del Method O2 Flow Rate 97.0 F 60 18 148/72 H 91 L Nasal Cannula 2 03/04/25 12:00 03/04/25 14:03 03/04/25 12:00 03/04/25 14:03 03/04/25 12:00 03/04/25 12:00 03/04/25 12:00 Narrative Exam GENERAL: A&Ox3 . Awake, in acute distress due to diffuse abdominal pain NEURO: no focal neurological deficits HEENT: Atraumatic, Normocephalic. mucous membranes moist. Eyes open, symmetrical, & clear HEART: Normal Heart Sounds LUNGS: Clear to auscultation with no wheezing or crackles. ABDOMEN: soft, distended, diffuse tenderness to palpation, no bowel sounds heard, urostomy bag present lateral to the umbilicus on right SKIN: No Rash or ecchymoses, crusted round lesions with scabs on upper chest EXTREMITIES: No edema, tenderness, able to move all 4 extremities, pedal pulses palpated Objective Labs 03/04/25 04:56 03/04/25 04:56 Labs: Laboratory Results - last 24 hr 03/04/25 04:56 WBC 6.2 RBC 4.22 L Hgb 13.3 L Hct 38.5 L MCV 91 MCH 31.5 MCHC 34.5 RDW Std Deviation 50.3 H Plt Count 195 Neut % (Auto) 85 H Lymph % (Auto) 5 L [place] % (Auto) 9 Eos % (Auto) 0 Baso % (Auto) 0 Neut # (Auto) 5.2 Lymph # (Auto) 0.3 L [place] # (Auto) 0.6 Eos # (Auto) 0.0 Baso # (Auto) 0.0 Immature Gran # (Auto) 0.03 H Absolute Nucleated RBC 0.00 Immature Gran % 1 H Nucleated RBC % 0 Sodium 145 Potassium 4.6 Chloride 104 Carbon Dioxide 35.1 H Anion Gap 6 L BUN 21 Creatinine 0.9 Estim Creat Clear Calc 113.2 eGFR > 60 BUN/Creatinine Ratio 23 H Glucose 146 H Calculated Osmolality 294 Calcium 9.1 Corrected Calcium 9.1 Magnesium 2.7 H Total Bilirubin 0.9 AST 17 ALT 16 Alkaline Phosphatase 92 Total Protein 6.1 Albumin 4.1 Globulin 2.0 L Albumin/Globulin Ratio 2.1 Quality Measures Quality Measures none Advance care planning discussed with:: patient Assessment & Plan Assessment Current Active Medications: Generic Name Dose Route Start Last Admin Trade Name Freq PRN Reason Stop Dose Admin Dextrose 25 ml 03/03/25 02:42 Dextrose 50%-Water Inj 50 Ml Syringe IV 04/02/25 02:41 Q15MIN PRN BG 50-70 responsive npo pt Dextrose 50 ml 03/03/25 02:42 Dextrose 50%-Water Inj 50 Ml Syringe IV 04/02/25 02:41 Q15MIN PRN BG <50 OR BG <70 & pt unresponsive Glucagon 1 mg 03/03/25 02:42 Glucagon Inj 1 Mg Vial IM Q15MIN PRN BG <70, and no IV access Hydromorphone HCl 0.5 mg 03/03/25 09:44 Hydromorphone Inj 2 Mg/Ml Vial IVP 03/08/25 02:41 Q3H PRN BREAKTHROUGH PAIN (SEVERE) Piperacillin Sod/Tazobactam 100 mls @ 200 mls/hr 03/03/25 02:45 03/04/25 11:57 Sod 4.5 gm/ Sodium Chloride IV 03/10/25 02:44 200 mls/hr Q6HR JILL Administration Acyclovir Sodium 800 mg/ 266 mls @ 266 mls/hr 03/03/25 14:00 03/04/25 13:43 Sodium Chloride IV 03/10/25 13:59 266 mls/hr Q8HR [facility] Administration Insulin Human Lispro 0 unit 03/03/25 06:00 03/04/25 12:02 Insulin Lispro (Admelog) 1 Unit/0.01 Ml Unit SC 04/02/25 05:59 Not Given Q6HR [facility] Protocol Morphine Sulfate 1 mg 03/03/25 02:42 03/03/25 22:10 Morphine Sulf Inj 10 Mg/Ml Vial IVP 03/08/25 02:41 1 mg Q2H PRN Administration PAIN SCALE 7-10 (Severe Ondansetron HCl 4 mg 03/03/25 02:42 Ondansetron Inj 2 Mg/Ml Inj 2 Ml IVP 04/02/25 02:41 Q6H PRN NAUSEA OR VOMITING Protocol Pantoprazole Sodium 40 mg 03/03/25 09:00 03/04/25 09:09 Pantoprazole Inj 40 Mg Vial IVP 04/02/25 08:59 40 mg QDAY JILL Administration Plan Mr. Antonio is a 69-year-old male with past medical history of metastatic prostate cancer currently on chemotherapy, bladder resections s/p urostomy bag, bradycardia s/p pacemaker, TIA, and DM2 was admitted to the hospital on 03/03/2025 for SBO. #SBO #Intractable nausea and vomiting- resolved #Abdominal distention Patient states that he has not had a bowel in since and he has tried his normal bowel regimen, but has been unable to pass any stools or get this at this time. Patient also noticed abdominal distention and on physical exam was very tender to mild palpation and guarding was appreciated. Abdomen/pelvis CT on preliminary report showed high-grade small bowel obstruction with transition This is most likely mechanical SBO given the history of abdominal surgeries Lactic acid was initially 1.3 and patient did not have any leukocytosis, but given physical exam repeated lactic acid Plan: -Zosyn started 03/03- -Pain management with morphine and Dilaudid -clear liquid diet, advance as tolerated -NG tube discontinued -General Surgery consulted, appreciate commendations -GI series show incomplete obstruction. #Shingles Patient was previously seen in the ED around 1 week ago for new onset shingles Patient has been on treatment for this, but still some fluid-filled vesicles are appreciated in the upper chest wall Plan: -Acyclovir 800mg Q8H -Contact precautions -Will continue to monitor contact #UTI -Urinalysis is positive for nitrites, leukocyte esterase and WBC 91 -Urine culture pending, previous cultures positive for citrobacter freundii which is sensitive to zosyn -Pt is on zosyn 03/03- #Non -Insulin dependent type 2 Diabetes -On admission BG 173, A1c 6.2 on 03/01/25 -Pt's home medication include metformin 500mg BID -Insulin sliding scale ordered -Hypoglycemia protocol ordered with Accu cheks AC #Hx of bladder resection s/p urostomy bag #Hx of metastatic prostate cancer #Hx of bradycardia s/p pacemaker #Hx of TIA Pending medication conciliation to start home meds. Disposition: Patient admitted to med surg for SBO and small bowel series ordered Diet: NPO GI prophylaxis: protonix DVT prophylaxis: SCDs in the setting of possible surgical intervention Code: Full Assessment and plan discussed with my attending physician Dr. Merle Garza (PGY-1)- Internal medicine resident
[2025-03-04] MEDS: MORPHINE SULF INJ 10 MG/ML VIAL IVP (19:55)
[2025-03-04] MEDS: PREGABALIN 50 MG CAPSULE 100 MG PO (21:00)
[2025-03-04] MEDS: traZODone HCL 50 MG TABLET PO (21:00)
[2025-03-04] MEDS: ATORVASTATIN CALCIUM 20 MG TABLET 40 MG PO (21:00)
[2025-03-05] VITALS (8 sets, daily range): BP systolic 125–157; BP diastolic 62–81; PULSE 43–68; RESP 16–18; TEMP 36.1–36.6; O2SAT 90–97; BMI 39.4
[2025-03-05 05:16] LABS: Basophils % (Auto) 0 % (0-2.5); Eosinophils # (Auto) 0.1 Thou/mm3 (0.0-0.5); Eosinophils % (Auto) 1 % (0-10); Hematocrit 35.7 % (41.0-53.0); Hemoglobin 12.1 g/dL (13.5-16.0); Immature Granulocytes % (Auto) 0 % (0-0); Immature Granulocytes Auto 0.03 Thou/mm3 (0.00-0.00); Lymphocytes # (Auto) 0.5 Thou/mm3 (1.0-4.8); Lymphocytes % (Auto) 7 % (10-50); Mean Corpuscular HGB Conc 33.9 g/dl (31.0-37.0); Mean Corpuscular Hemoglobin 30.9 pg (25.0-35.0); Mean Corpuscular Volume 91 fL (80-100); Monocytes # (Auto) 0.7 Thou/mm3 (0.0-0.8); Monocytes % (Auto) 10 % (0-12); Neutrophils % (Auto) 82 % (37-80); Nucleated Red Blood Cell % 0 /100 WBC (0); Platelet Count 176 Thou/mm3 (140-440); Red Blood Count 3.91 Miln/mm3 (4.50-5.90); White Blood Count 7.3 Thou/mm3 (3.8-10.6)
[2025-03-05 05:44] LABS: Alanine Aminotransferase 14 U/L (10-49); Albumin, Serum 3.6 gm/dL (3.4-4.8); Albumin/Globulin Ratio 2.1 (1.2-2.2); Alkaline Phosphatase 78 U/L (46-116); Anion Gap 6 (7-16); Aspartate Amino Transferase 16 U/L (0-34); BUN/Creatinine Ratio 21 Ratio (12-20); Blood Urea Nitrogen 17 mg/dL (9-23); Calcium 8.2 mg/dL (8.3-10.6); Calcium (Corrected) 8.5 mg/dL (8.5-10.1); Carbon Dioxide 32.1 mMol/L (20.0-31.0); Chloride 102 mMol/L (98-107); Creatinine (Component) 0.8 mg/dL (0.6-1.3); Estimated Creatinine Clearance 127.3 mL/min (>60); Globulin 1.7 gm/dL (2.3-3.5); Glucose 117 mg/dL (74-106); Magnesium 2.4 mg/dL (1.6-2.6); Osmolality,Calculated 281 (275-295); Potassium 3.6 mMol/L (3.4-5.1); Sodium 140 mMol/L (136-145); Total Protein 5.3 gm/dL (5.7-8.2); eGFR > 60 See Note
[2025-03-05] MEDS: PIPER/TAZO INJ 4.5 GM in SODIUM CHLORIDE 0.9% (POP) 100 ML IV ×3 (05:55→17:42)
[2025-03-05] MEDS: traZODone HCL 50 MG TABLET PO (09:31)
[2025-03-05] MEDS: PREGABALIN 50 MG CAPSULE 100 MG PO (09:31)
[2025-03-05] MEDS: PANTOPRAZOLE INJ 40 MG VIAL IVP (09:31)
[2025-03-05] MEDS: LACTULOSE SYRUP 20 GM/30 ML UDC PO (09:31)
[2025-03-05] MEDS: FLUoxetine HCL 10 MG CAPSULE 20 MG PO (09:32)
--- NOTE | 2025-03-05 10:18 | PC.IP ---
Observed pt.'s back and front neck. Lesions are dry and crusted. Rene Roberts RN and Sameera CORNEJOA informed that, per CDC and [facility] guidelines, Contact and Airborne Precaution may be discontinued
[2025-03-05] MEDS: INSULIN LISPRO (AdmeLOG) 1 UNIT/0.01 ML UNIT SC (12:04)
[2025-03-05] MEDS: GLYCERIN, ADULT 1 EA SUPP 1 EACH PR (12:04)
--- NOTE | 2025-03-05 17:39 | ESPR_ITS ---
<Statement entered by Duncan Bloom MD - 03/14/25 07:48> I reviewed above note and agree with findings and plans. I have also personally examined the patient with medicine team and went over assessment and plan with medical team including direct marketing intern and resident physician. Documentation for date of: 03/05/25 Subjective Subjective Interval history: No acute overnight events reported. Patient seen and examined at bedside this morning. Patient endorses to improvement in his abdominal pain and is passing flatus. Patient has not had a bowel movement in the morning but had a very large bowel movement in the afternoon. Will advance diet as tolerated. Vitals are stable. Labs are reviewed. 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 Patient has no other complaints. Exam Vital Signs Temp Pulse Resp BP Pulse Ox O2 Del Method O2 Flow Rate 97.8 F 62 18 157/81 H 92 L Room Air 1 03/05/25 16:00 03/05/25 16:03/05/25 16:03/05/25 16:03/05/25 16:03/05/25 16:03/05/25 08:00 Narrative Exam GENERAL: A&Ox3 . Awake, in acute distress due to diffuse abdominal pain NEURO: no focal neurological deficits HEENT: Atraumatic, Normocephalic. mucous membranes moist. Eyes open, symmetrical, & clear HEART: Normal Heart Sounds LUNGS: Clear to auscultation with no wheezing or crackles. ABDOMEN: soft, distended, non tender, no bowel sounds heard, urostomy bag present lateral to the umbilicus on right SKIN: No Rash or ecchymoses, crusted round lesions with scabs on upper chest and right shoulder EXTREMITIES: No edema, tenderness, able to move all 4 extremities, pedal pulses palpated Objective Labs 03/05/25 04:34 03/05/25 04:34 Labs: Laboratory Results - last 24 hr 03/05/25 04:34 WBC 7.3 RBC 3.91 L Hgb 12.1 L Hct 35.7 L MCV 91 MCH 30.9 MCHC 33.9 RDW Std Deviation 50.0 H Plt Count 176 Neut % (Auto) 82 H Lymph % (Auto) 7 L [place] % (Auto) 10 Eos % (Auto) 1 Baso % (Auto) 0 Neut # (Auto) 6.0 Lymph # (Auto) 0.5 L [place] # (Auto) 0.7 Eos # (Auto) 0.1 Baso # (Auto) 0.0 Immature Gran # (Auto) 0.03 H Absolute Nucleated RBC 0.00 Immature Gran % 0 Nucleated RBC % 0 Sodium 140 Potassium 3.6 D Chloride 102 Carbon Dioxide 32.1 H Anion Gap 6 L BUN 17 Creatinine 0.8 Estim Creat Clear Calc 127.3 eGFR > 60 BUN/Creatinine Ratio 21 H Glucose 117 H Calculated Osmolality 281 Calcium 8.2 L Corrected Calcium 8.5 Magnesium 2.4 Total Bilirubin 1.0 AST 16 ALT 14 Alkaline Phosphatase 78 Total Protein 5.3 L Albumin 3.6 D Globulin 1.7 L Albumin/Globulin Ratio 2.1 Quality Measures Quality Measures none Advance care planning discussed with:: patient Assessment & Plan Assessment Current Active Medications: Generic Name Dose Route Start Last Admin Trade Name Freq PRN Reason Stop Dose Admin Atorvastatin Calcium 40 mg 03/04/25 20:30 03/04/25 21:00 Atorvastatin Calcium 20 Mg Tablet PO 04/03/25 20:29 40 mg HS JILL Administration Xtandi (Enzalutamide 0 ea 03/06/25 09:00 40 Mg) Tablet PO 04/05/25 08:59 DAILY JILL Dextrose 25 ml 03/03/25 02:42 Dextrose 50%-Water Inj 50 Ml Syringe IV 04/02/25 02:41 Q15MIN PRN BG 50-70 responsive npo pt Dextrose 50 ml 03/03/25 02:42 Dextrose 50%-Water Inj 50 Ml Syringe IV 04/02/25 02:41 Q15MIN PRN BG <50 OR BG <70 & pt unresponsive Fluoxetine HCl 20 mg 03/05/25 09:00 03/05/25 09:32 Fluoxetine Hcl 10 Mg Capsule PO 04/04/25 08:59 20 mg QDAY JILL Administration Glucagon 1 mg 03/03/25 02:42 Glucagon Inj 1 Mg Vial IM Q15MIN PRN BG <70, and no IV access Hydromorphone HCl 0.5 mg 03/03/25 09:44 Hydromorphone Inj 2 Mg/Ml Vial IVP 03/08/25 02:41 Q3H PRN BREAKTHROUGH PAIN (SEVERE) Piperacillin Sod/Tazobactam 100 mls @ 200 mls/hr 03/03/25 02:45 03/05/25 12:04 Sod 4.5 gm/ Sodium Chloride IV 03/10/25 02:44 200 mls/hr Q6HR JILL Administration Acyclovir Sodium 800 mg/ 266 mls @ 266 mls/hr 03/03/25 14:00 03/05/25 14:00 Sodium Chloride IV 03/10/25 13:59 266 mls/hr Q8HR JILL Administration Insulin Human Lispro 0 unit 03/03/25 06:00 03/05/25 17:16 Insulin Lispro (Admelog) 1 Unit/0.01 Ml Unit SC 04/02/25 05:59 Not Given Q6HR JILL Protocol Morphine Sulfate 1 mg 03/03/25 02:42 03/04/25 19:55 Morphine Sulf Inj 10 Mg/Ml Vial IVP 03/08/25 02:41 1 mg Q2H PRN Administration PAIN SCALE 7-10 (Severe Ondansetron HCl 4 mg 03/03/25 02:42 Ondansetron Inj 2 Mg/Ml Inj 2 Ml IVP 04/02/25 02:41 Q6H PRN NAUSEA OR VOMITING Protocol Pantoprazole Sodium 40 mg 03/03/25 09:00 03/05/25 09:31 Pantoprazole Inj 40 Mg Vial IVP 04/02/25 08:59 40 mg QDAY JLIL Administration Pregabalin 100 mg 03/04/25 21:00 03/05/25 09:31 Pregabalin 50 Mg Capsule PO 04/03/25 20:59 100 mg BID JILL Administration Trazodone HCl 50 mg 03/04/25 21:00 03/05/25 09:31 Trazodone Hcl 50 Mg Tablet PO 04/03/25 20:59 50 mg BID JILL Administration Plan Mr. Antonio is a 69-year-old male with past medical history of metastatic prostate cancer currently on chemotherapy, bladder resections s/p urostomy bag, bradycardia s/p pacemaker, TIA, and DM2 was admitted to the hospital on 03/03/2025 for SBO. #SBO -resolved #Intractable nausea and vomiting- resolved #Abdominal distention Patient states that he has not had a bowel in since and he has tried his normal bowel regimen, but has been unable to pass any stools or get this at this time. Patient also noticed abdominal distention and on physical exam was very tender to mild palpation and guarding was appreciated. Abdomen/pelvis CT on preliminary report showed high-grade small bowel obstruction with transition This is most likely mechanical SBO given the history of abdominal surgeries Lactic acid was initially 1.3 and patient did not have any leukocytosis, but given physical exam repeated lactic acid Plan: -Pain management with morphine and Dilaudid -Full liquid diet, advance as tolerated -NG tube discontinued -General Surgery consulted, appreciate commendations -GI series show incomplete obstruction. #Enterobacter cloacae and Proteus mirabilis UTI -Urinalysis is positive for nitrites, leukocyte esterase and WBC 91 -Urine culture grew Enterobacter cloacae and Proteus mirabilis- sensitive to zosyn -Pt is on zosyn 03/03- #Shingles Patient was previously seen in the ED around 1 week ago for new onset shingles Patient has been on treatment for this, but still some fluid-filled vesicles are appreciated in the upper chest wall Plan: -Acyclovir 800mg Q8H -Contact precautions -Will continue to monitor contact #Non -Insulin dependent type 2 Diabetes -On admission BG 173, A1c 6.2 on 03/01/25 -Pt's home medication include metformin 500mg BID -Insulin sliding scale ordered -Hypoglycemia protocol ordered with Accu cheks AC #Hx of bladder resection s/p urostomy bag #Hx of metastatic prostate cancer #Hx of bradycardia s/p pacemaker #Hx of TIA Pending medication conciliation to start home meds. Disposition: Patient admitted to med surg for SBO and IV antibiotics Diet: Full liquid, advance as tolerated GI prophylaxis: protonix DVT prophylaxis: SCDs in the setting of possible surgical intervention Code: Full Assessment and plan discussed with my attending physician Dr. Merle Garza (PGY-1)- Internal medicine resident
[2025-03-05] MEDS: ONDANSETRON INJ 2 MG/ML INJ 2 ML 4 MG IVP (21:02)
[2025-03-05] MEDS: METOCLOPRAMIDE INJ 5 MG/ML VIAL 2 ML IVP (22:57)
[2025-03-06] VITALS (9 sets, daily range): BP systolic 128–169; BP diastolic 68–85; PULSE 60–85; RESP 17–94; TEMP 36.1–36.8; O2SAT 86–96
[2025-03-06] MEDS: PIPER/TAZO INJ 4.5 GM in SODIUM CHLORIDE 0.9% (POP) 100 ML IV ×5 (00:06→23:21)
[2025-03-06] MEDS: METOCLOPRAMIDE INJ 5 MG/ML VIAL 2 ML IVP (02:19)
[2025-03-06] MEDS: INSULIN LISPRO (AdmeLOG) 1 UNIT/0.01 ML UNIT SC (05:11)
[2025-03-06] MEDS: hydrALAZINE INJ 20 MG/ML VIAL 5 MG IVP (06:33)
[2025-03-06] MEDS: PANTOPRAZOLE INJ 40 MG VIAL IVP (08:37)
[2025-03-06 09:43] LABS: Basophils % (Auto) 0 % (0-2.5); Eosinophils % (Auto) 0 % (0-10); Hematocrit 39.6 % (41.0-53.0); Hemoglobin 13.6 g/dL (13.5-16.0); Immature Granulocytes % (Auto) 1 % (0-0); Immature Granulocytes Auto 0.08 Thou/mm3 (0.00-0.00); Lymphocytes # (Auto) 0.3 Thou/mm3 (1.0-4.8); Lymphocytes % (Auto) 3 % (10-50); Mean Corpuscular HGB Conc 34.3 g/dl (31.0-37.0); Mean Corpuscular Hemoglobin 31.3 pg (25.0-35.0); Mean Corpuscular Volume 91 fL (80-100); Monocytes # (Auto) 0.4 Thou/mm3 (0.0-0.8); Monocytes % (Auto) 5 % (0-12); Neutrophils # (Auto) 7.3 Thou/mm3 (1.8-7.7); Neutrophils % (Auto) 91 % (37-80); Nucleated Red Blood Cell % 0 /100 WBC (0); Platelet Count 200 Thou/mm3 (140-440); RDW Standard Deviation 48.9 fL (35.1-43.9); Red Blood Count 4.35 Miln/mm3 (4.50-5.90); White Blood Count 8.1 Thou/mm3 (3.8-10.6)
[2025-03-06 10:05] LABS: Alanine Aminotransferase 18 U/L (10-49); Albumin/Globulin Ratio 2.1 (1.2-2.2); Alkaline Phosphatase 86 U/L (46-116); Anion Gap 7 (7-16); Aspartate Amino Transferase 19 U/L (0-34); BUN/Creatinine Ratio 18 Ratio (12-20); Bilirubin,Total 1.2 mg/dL (0.3-1.2); Blood Urea Nitrogen 14 mg/dL (9-23); Calcium 8.8 mg/dL (8.3-10.6); Calcium (Corrected) 8.8 mg/dL (8.5-10.1); Carbon Dioxide 29.2 mMol/L (20.0-31.0); Chloride 99 mMol/L (98-107); Creatinine (Component) 0.8 mg/dL (0.6-1.3); Estimated Creatinine Clearance 125.6 mL/min (>60); Globulin 1.9 gm/dL (2.3-3.5); Glucose 157 mg/dL (74-106); Magnesium 2.2 mg/dL (1.6-2.6); Osmolality,Calculated 273 (275-295); Potassium 3.6 mMol/L (3.4-5.1); Sodium 135 mMol/L (136-145); Total Protein 5.9 gm/dL (5.7-8.2); eGFR > 60 See Note
--- NOTE | 2025-03-06 13:38 | PC.SS ---
Follow up note: Pt was vomiting today. Pt will return home upon dc.
--- NOTE | 2025-03-06 16:01 | PD.RESPRO ---
Documentation for date of: 03/06/25 Subjective Subjective Interval history: Patient reported overnight he was having several episodes of vomiting, this morning patient states he was able to eat breakfast and then started vomiting. Although he denies any abdominal pain or distention and continues to pass flatus. He had a large bowel movement yesterday but has not had 1 today. Will continue bowel rest and n.p.o. and will advance liquid diet as patient is able to tolerate. If nausea vomiting does not resolve and patient is unable to tolerate diet and abdomen becomes distended or painful we will consider NG tube and small bowel series. Will continue to monitor for symptoms for now. Patient also states that because he has been n.p.o. he has not been able to take his Prozac and trazodone and starting to feel depressed. Patient is reassured with soon as he is able to tolerate oral diet, he will resume his oral medications. Will continue to monitor clinical improvement. Vitals are stable and labs are also stable. Exam Vital Signs Temp Pulse Resp BP Pulse Ox O2 Del Method O2 Flow Rate 97 F 60 18 144/85 H 92 L Room Air 2 03/06/25 11:47 03/06/25 11:47 03/06/25 11:47 03/06/25 11:47 03/06/25 11:47 03/06/25 11:47 03/06/25 07:45 Narrative Exam GENERAL: A&Ox3 . Awake, in acute distress due to diffuse abdominal pain NEURO: no focal neurological deficits HEENT: Atraumatic, Normocephalic. mucous membranes moist. Eyes open, symmetrical, & clear HEART: Normal Heart Sounds LUNGS: Clear to auscultation with no wheezing or crackles. ABDOMEN: soft, non distended, non tender, no bowel sounds heard, urostomy bag present lateral to the umbilicus on right SKIN: No Rash or ecchymoses, crusted round lesions with scabs on upper chest and right shoulder EXTREMITIES: No edema, tenderness, able to move all 4 extremities, pedal pulses palpated Objective Labs 03/06/25 09:06 03/06/25 09:06 Labs: Laboratory Results - last 24 hr 03/06/25 09:06 WBC 8.1 RBC 4.35 L Hgb 13.6 Hct 39.6 L MCV 91 MCH 31.3 MCHC 34.3 RDW Std Deviation 48.9 H Plt Count 200 Neut % (Auto) 91 H Lymph % (Auto) 3 L [place] % (Auto) 5 Eos % (Auto) 0 Baso % (Auto) 0 Neut # (Auto) 7.3 Lymph # (Auto) 0.3 L [place] # (Auto) 0.4 Eos # (Auto) 0.0 Baso # (Auto) 0.0 Immature Gran # (Auto) 0.08 H Absolute Nucleated RBC 0.00 Immature Gran % 1 H Nucleated RBC % 0 Sodium 135 L Potassium 3.6 Chloride 99 Carbon Dioxide 29.2 Anion Gap 7 BUN 14 Creatinine 0.8 Estim Creat Clear Calc 125.6 eGFR > 60 BUN/Creatinine Ratio 18 Glucose 157 H Calculated Osmolality 273 L Calcium 8.8 Corrected Calcium 8.8 Magnesium 2.2 Total Bilirubin 1.2 AST 19 ALT 18 Alkaline Phosphatase 86 Total Protein 5.9 Albumin 4.0 Globulin 1.9 L Albumin/Globulin Ratio 2.1 Quality Measures Quality Measures none Advance care planning discussed with:: patient and sibling Assessment & Plan Assessment Current Active Medications: Generic Name Dose Route Start Last Admin Trade Name Freq PRN Reason Stop Dose Admin Atorvastatin Calcium 40 mg 03/04/25 20:30 03/06/25 00:13 Atorvastatin Calcium 20 Mg Tablet PO 04/03/25 20:29 Not Given HS JILL Xtandi (Enzalutamide 0 ea 03/06/25 09:00 03/06/25 08:33 40 Mg) Tablet PO 04/05/25 08:59 Not Given DAILY JILL Dextrose 25 ml 03/03/25 02:42 Dextrose 50%-Water Inj 50 Ml Syringe IV 04/02/25 02:41 Q15MIN PRN BG 50-70 responsive npo pt Dextrose 50 ml 03/03/25 02:42 Dextrose 50%-Water Inj 50 Ml Syringe IV 04/02/25 02:41 Q15MIN PRN BG <50 OR BG <70 & pt unresponsive Fluoxetine HCl 20 mg 03/05/25 09:00 03/06/25 08:33 Fluoxetine Hcl 10 Mg Capsule PO 04/04/25 08:59 Not Given QDAY JILL Glucagon 1 mg 03/03/25 02:42 Glucagon Inj 1 Mg Vial IM Q15MIN PRN BG <70, and no IV access Hydromorphone HCl 0.5 mg 03/03/25 09:44 Hydromorphone Inj 2 Mg/Ml Vial IVP 03/08/25 02:41 Q3H PRN BREAKTHROUGH PAIN (SEVERE) Piperacillin Sod/Tazobactam 100 mls @ 200 mls/hr 03/03/25 02:45 03/06/25 12:24 Sod 4.5 gm/ Sodium Chloride IV 03/10/25 02:44 200 mls/hr Q6HR JILL Administration Acyclovir Sodium 800 mg/ 266 mls @ 266 mls/hr 03/03/25 14:00 03/06/25 14:17 Sodium Chloride IV 03/10/25 13:59 266 mls/hr Q8HR JILL Administration Insulin Human Lispro 0 unit 03/03/25 06:00 03/06/25 11:17 Insulin Lispro (Admelog) 1 Unit/0.01 Ml Unit SC 04/02/25 05:59 Not Given Q6HR JILL Protocol Morphine Sulfate 1 mg 03/03/25 02:42 03/04/25 19:55 Morphine Sulf Inj 10 Mg/Ml Vial IVP 03/08/25 02:41 1 mg Q2H PRN Administration PAIN SCALE 7-10 (Severe Ondansetron HCl 4 mg 03/03/25 02:42 03/05/25 21:02 Ondansetron Inj 2 Mg/Ml Inj 2 Ml IVP 04/02/25 02:41 4 mg Q6H PRN Administration NAUSEA OR VOMITING Protocol Pantoprazole Sodium 40 mg 03/03/25 09:00 03/06/25 08:37 Pantoprazole Inj 40 Mg Vial IVP 04/02/25 08:59 40 mg QDAY JILL Administration Pregabalin 100 mg 03/04/25 21:00 03/06/25 08:33 Pregabalin 50 Mg Capsule PO 04/03/25 20:59 Not Given BID JILL Trazodone HCl 50 mg 03/04/25 21:00 03/06/25 08:33 Trazodone Hcl 50 Mg Tablet PO 04/03/25 20:59 Not Given BID JILL Trazodone HCl 50 mg 03/06/25 16:00 Trazodone Hcl 50 Mg Tablet PO 03/06/25 16:01 X1 ONE Plan Mr. Antonio is a 69-year-old male with past medical history of metastatic prostate cancer currently on chemotherapy, bladder resections s/p urostomy bag, bradycardia s/p pacemaker, TIA, and DM2 was admitted to the hospital on 03/03/2025 for SBO. #SBO #Intractable nausea and vomiting #Abdominal distention- resolved Patient states that he has not had a bowel in since and he has tried his normal bowel regimen, but has been unable to pass any stools or get this at this time. Patient also noticed abdominal distention and on physical exam was very tender to mild palpation and guarding was appreciated. Abdomen/pelvis CT on preliminary report showed high-grade small bowel obstruction with transition This is most likely mechanical SBO given the history of abdominal surgeries Lactic acid was initially 1.3 and patient did not have any leukocytosis, but given physical exam repeated lactic acid Plan: -Pain management with morphine and Dilaudid -Clear liquid diet, advance as tolerated -NG tube discontinued -General Surgery consulted, appreciate commendations -GI series show incomplete obstruction. # Urinary tract infection secondary to Enterobacter cloacae and Proteus mirabilis -Urinalysis is positive for nitrites, leukocyte esterase and WBC 91 -Urine culture grew Enterobacter cloacae and Proteus mirabilis- sensitive to zosyn -Pt is on zosyn 03/03- 03/09 #Shingles-improved Patient was previously seen in the ED around 1 week ago for new onset shingles Patient has been on treatment for this, but still some fluid-filled vesicles are appreciated in the upper chest wall Plan: -Acyclovir 800mg Q8H -Contact precautions not needed, as the lesions have crusted over -Will continue to monitor contact #Non -Insulin dependent type 2 Diabetes -On admission BG 173, A1c 6.2 on 03/01/25 -Pt's home medication include metformin 500mg BID -Insulin sliding scale ordered -Hypoglycemia protocol ordered with Accu cheks AC #Hx of bladder resection s/p urostomy bag #Hx of metastatic prostate cancer #Hx of bradycardia s/p pacemaker #Hx of TIA Pending medication conciliation to start home meds. #Depression -Resumed pt's home Prozac and Trazadone Disposition: Likely discharge home in 1 to 2 days pending clinical improvement Diet: clear liquid, advance as tolerated GI prophylaxis: protonix DVT prophylaxis: SCDs in the setting of possible surgical intervention Code: Full Assessment and plan discussed with my attending physician Dr. Brooklynn Garza (PGY-1)- Internal medicine resident Attending Provider Attestation/Addendum I have discussed and was present for the essential components of the history, physical examination, diagnosis, and treatment plan with the resident. I agree with the patient's care as documented by the resident and amended herein by me. Gaurav Overton DO. Although this document has been carefully reviewed, there may still be some phonetic and other typographical errors. These errors are purely grammatical due to imperfections in the software program and should not be construed in any way to compromise the substance of the patient's medical care during this visit.
[2025-03-06] MEDS: traZODone HCL 50 MG TABLET PO (16:09)
--- NOTE | 2025-03-06 17:15 | PC.NURSE ---
Per MD order trial of PO meds and water done at 1609. Patient tolerated PO meds and water without vomiting or nausea after one hour. Per Md order clear liquid diet with be restarted as tolerated for dinner.
[2025-03-06] MEDS: ATORVASTATIN CALCIUM 20 MG TABLET 40 MG PO (21:06)
[2025-03-06] MEDS: PREGABALIN 50 MG CAPSULE 100 MG PO (21:06)
[2025-03-07] VITALS: BP 133/66; PULSE 60; RESP 22; TEMP 36.6; O2SAT 92
[2025-03-07 04:25] VITALS: BP 149/76; PULSE 61; RESP 16; TEMP 36.8; O2SAT 95
[2025-03-07] MEDS: PIPER/TAZO INJ 4.5 GM in SODIUM CHLORIDE 0.9% (POP) 100 ML IV (05:21)
[2025-03-07 05:57] LABS: Basophils % (Auto) 0 % (0-2.5); Eosinophils # (Auto) 0.1 Thou/mm3 (0.0-0.5); Eosinophils % (Auto) 1 % (0-10); Hematocrit 36.2 % (41.0-53.0); Hemoglobin 12.9 g/dL (13.5-16.0); Immature Granulocytes % (Auto) 1 % (0-0); Immature Granulocytes Auto 0.05 Thou/mm3 (0.00-0.00); Lymphocytes # (Auto) 0.5 Thou/mm3 (1.0-4.8); Lymphocytes % (Auto) 8 % (10-50); Mean Corpuscular HGB Conc 35.6 g/dl (31.0-37.0); Mean Corpuscular Hemoglobin 31.5 pg (25.0-35.0); Mean Corpuscular Volume 89 fL (80-100); Monocytes # (Auto) 0.6 Thou/mm3 (0.0-0.8); Monocytes % (Auto) 10 % (0-12); Neutrophils # (Auto) 4.6 Thou/mm3 (1.8-7.7); Neutrophils % (Auto) 80 % (37-80); Nucleated Red Blood Cell % 0 /100 WBC (0); Platelet Count 165 Thou/mm3 (140-440); RDW Standard Deviation 47.7 fL (35.1-43.9); Red Blood Count 4.09 Miln/mm3 (4.50-5.90); White Blood Count 5.8 Thou/mm3 (3.8-10.6)
[2025-03-07 06:39] LABS: Alanine Aminotransferase 22 U/L (10-49); Albumin, Serum 3.7 gm/dL (3.4-4.8); Albumin/Globulin Ratio 2.1 (1.2-2.2); Alkaline Phosphatase 82 U/L (46-116); Anion Gap 9 (7-16); Aspartate Amino Transferase 20 U/L (0-34); BUN/Creatinine Ratio 16 Ratio (12-20); Bilirubin,Total 1.2 mg/dL (0.3-1.2); Blood Urea Nitrogen 14 mg/dL (9-23); Calcium 8.7 mg/dL (8.3-10.6); Calcium (Corrected) 8.9 mg/dL (8.5-10.1); Carbon Dioxide 28.7 mMol/L (20.0-31.0); Chloride 100 mMol/L (98-107); Creatinine (Component) 0.9 mg/dL (0.6-1.3); Estimated Creatinine Clearance 111.6 mL/min (>60); Globulin 1.8 gm/dL (2.3-3.5); Glucose 119 mg/dL (74-106); Osmolality,Calculated 277 (275-295); Potassium 3.7 mMol/L (3.4-5.1); Sodium 138 mMol/L (136-145); Total Protein 5.5 gm/dL (5.7-8.2); eGFR > 60 See Note
[2025-03-07 07:00] VITALS: BP 142/80; PULSE 64; RESP 20; TEMP 36.2; O2SAT 98
[2025-03-07] MEDS: FLUoxetine HCL 10 MG CAPSULE 20 MG PO (09:06)
[2025-03-07] MEDS: PREGABALIN 50 MG CAPSULE 100 MG PO (09:06)
[2025-03-07] MEDS: PANTOPRAZOLE INJ 40 MG VIAL IVP (09:06)
[2025-03-07] MEDS: traZODone HCL 50 MG TABLET PO (09:06)
[2025-03-07 10:03] VITALS: BP 140/68; PULSE 66
[2025-03-07] MEDS: CIPROFLOXACIN HCL 250 MG TABLET 500 MG PO (10:03)
[2025-03-07] MEDS: Furosemide 40 MG TABLET PO (10:03)
[2025-03-07] MEDS: ACETAMINOPHEN 325 MG TABLET 650 MG PO (12:10)
[2025-03-07 12:25] VITALS: BP 136/74; PULSE 52; RESP 18; TEMP 36.3; O2SAT 92
[2025-03-07 13:14] VITALS: PULSE 60; RESP 18; RESP 93
--- NOTE | 2025-03-07 18:27 | PD.RESDS ---
Planned Discharge Date 03/07/25 DS: Providers Provider Date of admission: 03/03/25 02:42 Primary care physician: Physician No Primary/Family Admitting Provider: Ramón Garza MD Attending Provider on Admission: Jaden Overton DO Consults: 03/03/25 02:11 Consult to General Surgery Stat Comment: SBO Consulting Provider: Jey Sands Attending Provider on DC: Guille Garza MD Discharging Provider: Guille Garza MD DS: Diagnosis Problem List Completed Was Problem List Reviewed/Reconciled?: Yes Hospital Course Hospital Course Hospital course: Mr. Antonio is a 69-year-old male with past medical history of metastatic prostate cancer currently on chemotherapy, bladder resections s/p urostomy bag, bradycardia s/p pacemaker, TIA, and DM2 presented to [facility] ED complaining of abdominal distention, constipation and abdominal pain with nausea and vomiting. Patient was admitted to the hospital on 03/03/2025 for small bowel obstruction seen on imaging. NG tube was placed and GI series was started as well as general surgery was consulted. Over the course of couple days patient's SBO resolved and surgical intervention was not needed. 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 Marcus regarding this hernia as patient has complex history of surgical intervention, and has surgery recommends patient follows up at [facility] for further recommendations. Patient is hemodynamically stable, small bowel obstruction has resolved, patient is able to tolerate oral diet without nausea or vomiting and patient has had 2 large bowel movements and is passing flatus. During hospitalization patient's urine cultures were positive for Enterobacter Colosi 8 and Proteus mirabilis and patient was started on IV antibiotics. Patient is hemodynamically stable to be discharged home and to continue oral antibiotics for additional 3 days. Discharge Recommendations -Follow up with PCP within 1 week of discharge -Take ciprofloxacin 500 mg twice daily for the next 3 days -Continue rest of medications as previously prescribed -Return to the ED or call EMS if symptoms return and/or worsen. Hospitalization Diagnosis #SBO- resolved #Intractable nausea and vomiting-- resolved #Abdominal distention- resolved # Urinary tract infection secondary to Enterobacter cloacae and Proteus mirabilis #Shingles-improved #Non -Insulin dependent type 2 Diabetes #Hx of bladder resection s/p urostomy bag #Hx of metastatic prostate cancer #Hx of bradycardia s/p pacemaker #Hx of TIA #Depression Assessment and plan discussed with my attending physician Dr. Brooklynn Garza (PGY-1)- Internal medicine resident Time Spent with Patient Time attestation: Total time spent providing and/or coordinating discharge services: Time spent: Greater than 30 minutes Exam Vital Signs Temp Pulse Resp BP Pulse Ox O2 Del Method O2 Flow Rate 97.3 F 60 18 136/74 H 92 L Room Air 2 03/07/25 12:25 03/07/25 13:14 03/07/25 13:14 03/07/25 12:25 03/07/25 12:25 03/07/25 12:03/06/25 07:45 Narrative Exam GENERAL: A&Ox3 . Awake, Not in acute distress NEURO: no focal neurological deficits HEENT: Atraumatic, Normocephalic. mucous membranes moist. Eyes open, symmetrical, & clear HEART: Normal Heart Sounds LUNGS: Clear to auscultation with no wheezing or crackles. ABDOMEN: soft, non-distended, non-tender, bowel sounds heard, no guarding or rebound tenderness, urostomy bag noted on left side of the umbilicus SKIN: No Rash or ecchymoses EXTREMITIES: No edema, tenderness, able to move all 4 extremities, pedal pulses palpated Discharge Plan Plan Patient Disposition: HOME (Self Care) Patient condition on transfer: Stable Care Plan Goals: Discharge Recommendations: -Follow up with PCP within 1 week of discharge -Take ciprofloxacin 500 mg twice daily for the next 3 days -Continue rest of medications as previously prescribed -Return to the ED or call EMS if symptoms return and/or worsen. Prescriptions/Referrals Prescriptions/Med Rec: New ciprofloxacin HCl 500 mg tablet 500 mg PO BID 3 Days Qty: 6 0RF Continued metformin [Glucophage] 500 MG tablet 500 mg PO BIDAC Qty: 0 trazodone 50 mg tablet 50 mg PO BID Patient Comments: TAKE 1 TABLET BY MOUTH TWICE DAILY furosemide 40 mg tablet 40 mg PO Q12H PRN (Reason: edema) Patient Comments: TAKE 1 TABLET BY MOUTH ONCE DAILY FOR 7 DAYS methadone 10 mg tablet 10 mg PO BID Patient Comments: TAKE 1 TABLET BY MOUTH TWICE DAILY atorvastatin 40 mg tablet 40 mg PO .aday fluoxetine [Prozac] 20 mg capsule 20 mg PO QDAY pregabalin [Lyrica] 100 mg capsule 100 mg PO BID Referrals: No Primary/Family,Physician [Primary Care Provider] - Patient/Caregiver Discharge Instructions Education Materials: Small Bowel Obstruction, Obstruction Intestinal Print Language: Kyrgyz Stand Alone Forms: [facility] Info., Patient Portal Info Letter Discharge Order Discharge Orders: Discharge (Routine); Ordered 03/07/25 Ordered By: Sandor Valerio Quality Discharge Quality Measures VTE prophylaxis MD Attestestation MD Attestation I have discussed and was present for the essential components of the discharge history, physical examination, diagnosis, and discharge treatment plan with the resident. I agree with the patient's discharge care as documented by the resident and amended herein by me. Gaurav Overton DO. The patient understood all discharge instructions, all questions were answered satisfactorily. The patient was instructed to return to the Emergency Department is symptoms worsened or persisted. Patient will continue with her short course of ciprofloxacin for urinary tract infection, patient was stable, afebrile, and tolerating p.o. intake at time of discharge home. See resident note above for additional details, all questions were answered satisfactorily. Although this document has been carefully reviewed, there may still be some phonetic and other typographical errors. These errors are purely grammatical due to imperfections in the software program and should not be construed in any way to compromise the substance of the patient's medical care during this visit.
== END 2025-03-07 13:47 | disposition home or self-care (01) | DRG 389 ==
LOC: SERX 03-03 02:16 → SERHOLD 03-03 02:58 → S3SX 03-03 04:07
PROVIDERS: Nurse Practitioner Family; Admitting Provider Student in an Organized Health Care Education/Training Program; Emergency Provider Emergency Medicine; Visit Provider Student in an Organized Health Care Education/Training Program
DX: K56.600 Partial intestinal obstruction, unspecified as to cause (principal); C79.51 Secondary malignant neoplasm of bone; N39.0 Urinary tract infection, site not specified; Z85.46 Personal history of malignant neoplasm of prostate; Z86.73 Personal history of transient ischemic attack (TIA), and cerebral infarction without residual deficits; Z95.0 Presence of cardiac pacemaker; B02.9 Zoster without complications; E11.9 Type 2 diabetes mellitus without complications; Z79.84 Long term (current) use of oral hypoglycemic drugs; E66.01 Morbid (severe) obesity due to excess calories; Z68.39 Body mass index [BMI] 39.0-39.9, adult; B96.4 Proteus (mirabilis) (morganii) as the cause of diseases classified elsewhere; B96.89 Other specified bacterial agents as the cause of diseases classified elsewhere; F32.A Depression, unspecified; N20.0 Calculus of kidney; G89.3 Neoplasm related pain (acute) (chronic); Z85.51 Personal history of malignant neoplasm of bladder; Z88.8 Allergy status to other drugs, medicaments and biological substances
CPT/HCPCS: 36415; 74018; 74177; 74250; 80053; 81001; 83605; 83690; 83735; 84145; 85025; 85610; 85730; 87077; 87081; 87086; 87186; 96365; 96375; 96376; A4649; J0133; J0360; J0696; J1171; J1815; J2270; J2405; J2470; J2543; J2765; J7030; J7050; J7120; Q9967; A9270

== ENCOUNTER 2025-03-12 22:40 | Inpatient (IN) | payer MEDICARE, BC, SELFPAY ==
[2025-03-12 22:43] VITALS: BP 114/68; PULSE 63; RESP 19; TEMP 36.8; O2SAT 95
[2025-03-12 22:59] VITALS: PULSE 98; RESP 22; O2SAT 95; BMI 39.5
[2025-03-12 23:42] VITALS: TEMP 38.1
[2025-03-13] VITALS (26 sets, daily range): BP systolic 101–140; BP diastolic 42–78; PULSE 61–85; RESP 12–94; TEMP 36.4–37.2; O2SAT 89–97
--- NOTE | 2025-03-13 00:40 | EDNOTE_ITS ---
ED Weakness RME/HPI General Chief complaint: Nausea/Vomiting/Diarrhea Stated complaint: WEAKNESS Time Seen by Provider: 03/12/25 23:23 Source: patient and family Arrival date/time: 03/12/25 22:40 Mode of arrival: EMS Limitations: no limitations RME / HPI RME / HPI Narrative: Dr. Flores?s Main ED Evaluation: 69-year-old male with a medical history of CHF, hyperlipidemia, and a urostomy, returns to the Emergency Department with complaints of generalized weakness, low-grade fever, and nonproductive cough. The patient was admitted 1 week ago for small bowel obstruction. Per his , the patient began feeling increasingly fatigued and not himself earlier today, with noticeable bilateral weakness and new difficulty ambulating, requiring more assistance than usual. She also reports having trouble waking him this morning, which is atypical for him and prompted her decision to bring him in. He denies chest pain, palpitations, or dyspnea. The cough is dry, without sputum production. He has had no nausea, vomiting, diarrhea, dysuria, or issues with his urostomy appliance. There is no new or worsening lower extremity edema. Related Data Home Medications ?Medication ?Instructions ?Recorded ?Confirmed metformin 500 mg tablet 500 mg PO BIDAC #0 tabs 07/1403/13/25 (Glucophage) trazodone 50 mg tablet 50 mg PO BID Sleep 05/13/23 03/13/25 atorvastatin 40 mg tablet 40 mg PO .aday 03/03/2511/06 fluoxetine 20 mg capsule (Prozac) 20 mg PO QDAY 03/13/25 methadone 10 mg tablet 10 mg PO BID 03/03/25 Held on 03/13/25. Instructions: on cipro, Contraindicated pregabalin 100 mg capsule (Lyrica) 100 mg PO TID 03/0303/13/25 Xtandi 160 mg PO DAILY 03/13/2511/06 furosemide 20 mg tablet 20 mg PO DAILY 03/13/2511/06 Allergies Allergy/AdvReac Type Severity Reaction Status Date / Time bacitracin Allergy Mild Rash Verified 03/12/25 22:58 gramicidin D Allergy Mild Rash Verified 03/12/25 22:58 neomycin Allergy Mild Rash Verified 03/12/25 22:58 Review of Systems Review of Systems Systems Reviewed: All systems reviewed, normal except as documented Past Medical History Past Medical History NEUROLOGIC: Positive Neurological Disorders, Transient Ischemic Attacks (TIA) and Head Trauma; Negative Seizures CARDIAC: Positive Cardiac Arrhythmia and Hypercholesterolemia; Negative Cardiac Disorders, Congestive Heart Failure or Hypertension RESPIRATORY: Negative Chronic Obstructive Pulmonary Disease (COPD), Asthma or Sleep Apnea GASTROINTESTINAL: Positive Gastrointestinal Disorders, Ulcer and Obesity GENITOURINARY: Positive Genitourinary Disorders, Renal Disease, Kidney Stones, Inguinal Hernia, Prostate Cancer and Benign Prostatic Hyperplasia MUSCULOSKELETAL: Positive Musculoskeletal Disorders, Bone Cancer, Arthritis, Carpal Tunnel Syndrome and Fractures ENT: Positive Head Trauma ENDOCRINE: Positive Endocrine Disorders and Diabetes Mellitus Type 2; Negative Diabetes Mellitus Type 1 HEMATOLOGIC: Negative Blood Disorders or Sickle Cell Disease PSYCHO/SOCIAL: Positive Depression and Anxiety OTHER HISTORY: Positive Hospitalization, Autoimmune Disease, Falls, Radiation Therapy, MRSA, Measles, Rubella (Romansh Measles), Cancer and Prostate Cancer; Negative Shingles, Blood Transfusions, Blood Transfusion Reaction, Anesthesia Reactions, Chemotherapy, Chicken Pox or Mumps Family History FAMILY HISTORY: Positive Family Psychiatric Problems, Family Respiratory Disord ers, Family Gastrointestinal Problems and Family Surgery; Negative Family Cardiac Disorders, Family Cancer or Family Anesthesia Reaction Surgical History SURGICAL: Positive Pacemaker, Eye Surgery, Tonsillectomy, Abdominal Surgery, Joint Replacement and Amputation; Negative Cardiac Surgery Social History SMOKING STATUS: Never smoker SECOND HAND EXPOSURE: No ED Exam General Limitations: Present no limitations General appearance: Present alert and in no apparent distress Head Head exam: Present atraumatic Eye Eye exam: Present normal appearance, PERRL and EOMI ENT ENT exam: Present normal exam, normal oropharynx and mucous membranes moist Neck Neck exam: Present normal inspection, full ROM and trachea midline Chest Chest inspection: Present normal inspection and symmetric chest wall rise Respiratory Respiratory exam: Present normal lung sounds bilaterally Cardiovascular Cardiovascular exam: Present regular rate, normal rhythm and normal heart sounds Abdominal Exam Abdominal exam: Present soft, normal bowel sounds and other (Ostomy appliance present and intact, no surrounding skin irritation noted.) Extremities Exam Extremities exam: Present normal inspection, full ROM, pedal edema and other Back Exam Back exam: Present normal inspection and full ROM Neurological Exam Neurological exam: Present alert, oriented X3 and CN II-XII intact Psychiatric Psychiatric exam: Present normal affect and normal mood Skin Skin exam: Present warm, dry, intact and normal color Course Course Course Narrative: CXR is ordered for determining etiology of shortness of breath. Quality Measures none Orders Category Date Time Status Bedside COVID-19 Antigen Test NOW Care 03/13/25 11:08 Active Bedside Influenza A&B Antigen Test NOW Care 03/13/25 06:06 Completed COVID-19 Screening Questionnaire NOW Care 03/13/25 11:[address] Screening NOW Care 03/13/25 00:43 Active EKG (ED ONLY) *Do not use* NOW Care 03/12/25 23:[address] abdomen pelvis wo con Stat Exams 03/13/25 08:[address] angio chest Stat Exams 03/13/25 00:[address] head/brain wo con Stat Exams 03/13/25 08:28 Completed CXRP [XR chest 1V portable] Stat Exams 03/13/25 04:34 Completed EKG (ED Only) Stat Exams 03/12/25 23:30 Ordered BNP [B-Type Natriuretic Peptide] Stat Lab 03/13/25 00:30 Completed Blood Culture (Lab) Stat Lab 03/13/25 06:15 Received CBC Stat Lab 03/13/25 00:30 Completed CMP [Comprehensive Metabolic Panel] Stat Lab 03/13/25 00:30 Completed COVID-19 Antigen (In-House) Stat Lab 03/13/25 06:25 Completed D-Dimer Stat Lab 03/13/25 04:57 Completed Lactate (Lactic Acid) Stat Lab 03/13/25 06:20 Completed Lactic Acid [Lactate (Lactic Acid)] Stat Lab 03/13/25 00:30 Completed Procalcitonin Stat Lab 03/13/25 06:20 Completed RSV [Respiratory Syncytial Virus Ag] Stat Lab 03/13/25 06:25 Completed Troponin I Stat Lab 03/13/25 00:30 Completed Troponin I Stat Lab 03/13/25 04:57 Completed Urinalysis Stat Lab 03/13/25 06:10 Completed Aspirin Chew Med 03/13/25 01:57 Discontinued 324 mg PO X1 ONE Sodium Chloride 0.9% 1000 ml [Ns] 1,000 ml Med 03/13/25 00:40 Discontinued IV 999 mls/hr Vital Signs Vital signs: Vital Signs Temperature 98.2 F 03/12/25 22:43 Pulse Rate 63 03/12/25 22:43 Respiratory Rate 19 03/12/25 22:43 Blood Pressure 114/68 03/12/25 22:43 Pulse Oximetry (%) 95 03/12/25 22:43 Oxygen Delivery Method Room Air 03/12/25 22:43 Weakness MDM Narrative MDM Narrative:: 69-year-old male with a known history of CHF, hyperlipidemia, and a urostomy, presenting with generalized weakness, low-grade fever, and nonproductive cough. Per family, patient demonstrated acute functional decline, including bilateral weakness, difficulty ambulating, and was described as difficult to arouse this morning, raising concern for systemic decompensation. On initial evaluation, patient denies chest pain, dyspnea, or palpitations. His cough is dry, and his urostomy is functioning without issue. Patient remains hemodynamically stable but requires close monitoring. Pending lab and imaging results, admission will be considered for further evaluation and supportive care. Differential diagnosis includes pulmonary embolism, pneumonia, electrolyte abnormality, dehydration, atypical presentation of coronary artery disease. Patient was noted to be hypoxic in the ED with oxygen saturation decreasing to 88% on room air. Given this, a D-dimer was obtained and a CTA chest was ordered. Additionally, a repeat urine culture will be sent. 0600 Care signed out to Dr. Gonzales. Past medical, surgical, social and family history reviewed. Vitals and home medications reviewed. Results and treatment plan discussed. They will assume the care of the patient at this time and will follow the patient, pending repeat UA, CTA and final disposition. Scribe Attestation: I, Nikki Angeles, am scribing for and in the presence of Dr. Flores. Provider Notation: Although this document has been carefully reviewed, there may still be some phonetic and other typographical errors. These errors are purely grammatical due to imperfections in the software program and should not be construed in any way to compromise the substance of the patient's medical care during this visit. Patient data External records reviewed:: [facility] previous records and EMS form Clinical information provided by:: patient and EMS Social determinants that could affect healthcare access:: none Patient has the following chronic illnesses:: See PMH How is presenting disease/condition affected by chronic disease/condition?: uneffected by Evaluation data The following diagnostics were reviewed and interpreted by me:: lab results and radiology exam(s) Lab and/or radiology exams considered but not ordered:: n/a Interpretation Summary: WBC 9.3 RBC 3.98 Medications / Prescriptions Medications or Prescriptions considered but not ordered:: n/a Medication administrations:: Medication Administration History Acetaminophen (Acetaminophen 325 Mg Tablet) 650 mg PO Q6H PRN PRN Reason: Fever >101.5 Stop: 04/12/25 12:38 Acetaminophen (Acetaminophen 325 Mg Tablet) 650 mg PO Q6H PRN PRN Reason: PAIN SCALE 1-3 (mild Stop: 04/12/25 12:38 Hydrocodone Bitart/Acetaminophen (Hydrocodone/Apap 10/325 Tab) 1 tab PO Q4H PRN PRN Reason: PAIN SCALE 4-6 (Moderate Stop: 03/18/25 12:38 Atorvastatin Calcium (Atorvastatin Calcium 20 Mg Tablet) 40 mg PO HS [facility] Stop: 04/12/25 20:59 Last Admin: 03/13/25 21:40 Dose: 40 mg Documented By: RH Dextrose (Dextrose 50%-Water Inj 50 Ml Syringe) 25 ml IV Q15MIN PRN PRN Reason: BG 50-70 responsive npo pt Stop: 04/12/25 17:53 Dextrose (Dextrose 50%-Water Inj 50 Ml Syringe) 50 ml IV Q15MIN PRN PRN Reason: BG <50 OR BG <70 & pt unresponsive Stop: 04/12/25 17:53 Enoxaparin Sodium (Enoxaparin Sod Inj 40 Mg/0.4 Ml Syringe) 40 mg SC QDAY JILL Stop: 03/28/25 08:59 Fluoxetine HCl (Fluoxetine Hcl 10 Mg Capsule) 20 mg PO QDAY JILL Stop: 04/12/25 17:59 Last Admin: 03/13/25 19:17 Dose: 20 mg Documented By: VASILE Glucagon (Glucagon Inj 1 Mg Vial) 1 mg IM Q15MIN PRN PRN Reason: BG <70, and no IV access Doxycycline Hyclate 100 mg/ (Sodium Chloride) 100 mls @ 100 mls/hr IV BID JILL Stop: 03/20/25 20:59 Last Infusion: 03/13/25 23:00 Dose: Infused Documented By: Admin: 03/13/25 21:40 Dose: 100 mls/hr Documented By: RH Ceftriaxone Sodium/Dextrose (Rocephin/D5w 1gm Iv Premix) 1 gm in 50 mls @ 100 mls/hr IV QDAY [facility] Stop: 03/20/25 17:59 Last Infusion: 03/13/25 20:00 Dose: Infused Documented By: Admin: 03/13/25 19:16 Dose: 100 mls/hr Documented By: VASILE Insulin Human Lispro (Insulin Lispro (Admelog) 1 Unit/0.01 Ml Unit) 0 unit SC ACHS [facility]; Protocol Stop: 04/12/25 20:59 Last Admin: 03/13/25 21:00 Dose: Not Given Documented By: RH Non-Admin Reason: Per Protocol Ondansetron HCl (Ondansetron Inj 2 Mg/Ml Inj 2 Ml) 4 mg IVP Q6H PRN; Protocol PRN Reason: NAUSEA OR VOMITING Stop: 04/12/25 12:38 Last Admin: 03/14/25 02:33 Dose: 4 mg Documented By: GARY Polyethylene Glycol (Polyethylene Glycol 17 Gm Packet) 17 gm PO QDAY [facility] Stop: 04/12/25 17:59 Last Admin: 03/13/25 19:16 Dose: 17 gm Documented By: VASILE Pregabalin (Pregabalin 50 Mg Capsule) 100 mg PO BID [facility] Stop: 04/12/25 20:59 Last Admin: 03/13/25 21:40 Dose: 100 mg Documented By: JAMEEL Discontinued Medications Aspirin (Aspirin 81 Mg Chew) 324 mg PO X1 ONE Stop: 03/13/25 01:58 Last Admin: 03/13/25 02:45 Dose: 324 mg Documented By: CHAPARRO Sodium Chloride (Ns) 1,000 mls @ 999 mls/hr IV .Q1H1M ONE Stop: 03/13/25 01:40 Last Admin: 03/13/25 00:48 Dose: Not Given Documented By: CHAPARRO Non-Admin Reason: Cancelled by Provider Sodium Chloride (Sodium Chloride Rt 10% 15 Ml Nebu) 5 ml INH X1 ONE Stop: 03/13/25 17:49 Last Admin: 03/14/25 00:38 Dose: Not Given Documented By: RAHEL Non-Admin Reason: not needed as above Consultations Consultation(s) initiated? (list below): No Diagnosis Weakness Differential Diagnosis: other (see MDM) Most likely diagnosis given after review of the tests above:: see clinical impression below Admission Indicated Admission indicated?: not indicated Explain why admission is indicated or not indicated:: pending CTA and final disposition Admission Request Was there a request for admission?: No Disposition Plan Disposition Plan: other (specify) (signed out pending CTA and final disposition) Discharge Plan Plan Patient Disposition: Admit Acute Care w/in Hospital Patient condition on transfer: Stable Problem List Clinical Impression: Acute dyspnea
--- NOTE | 2025-03-13 00:41 | XR_ITS ---
Examination: CTA chest with intravenous contrast 2-D reconstructions 3-D reconstructions, vascular Date and time of exam: March 13, 2025, 0552 hours INDICATIONS: Hypoxia chest pain today, diagnosis malignant neoplasm prostate CTDI: vol (mGy) 15.2 DLP: (mGycm) 590 Technique: Multiple axial sections of the thorax have been obtained. 3 mm slice thickness, from below the hemidiaphragms to above the apices of the lungs. Mediastinal and lung density settings have been obtained. 2-D sagittal and coronal reconstructions. 3-D angiographic renderings, 3-D volume renderings, 3D post processing, vascular maximum intensity projections obtained. Contrast administered is 100 cc Isovue 370 intravenous. Low dose protocols were performed. One or more of the following dose reduction techniques were used; automated exposure control, adjustment of the mA and/or KV according to patient size, use of iterative reconstruction technique. Findings: No thoracic aortic aneurysmal dilatation or dissection No pulmonary artery emboli pneumonia diffusely in the left lung No pathologic mediastinal lymphadenopathy Heavy calcification left anterior descending coronary artery and left main coronary artery 3 mm pulmonary nodule in left upper lobe image 92 15 mm pulmonary nodule left upper lobe image 105 Liver is mildly irregular in contour No definite gallstones Spleen not enlarged No pancreatic or adrenal mass No hydronephrosis Dense T3 osteoblastic metastatic disease again noted IMPRESSION: Negative renal pulmonary artery emboli Heavy coronary artery calcification Noncalcified pulmonary nodules T3 osteoblastic metastasis
[2025-03-13 00:58] LABS: Lactate (Lactic Acid) 1.6 mMol/L (0.4-2.0)
[2025-03-13 01:01] LABS: Basophils # (Auto) 0.0 Thou/mm3 (0.0-0.2); Basophils % (Auto) 0 % (0-2.5); Eosinophils # (Auto) 0.1 Thou/mm3 (0.0-0.5); Eosinophils % (Auto) 1 % (0-10); Hematocrit 35.6 % (41.0-53.0); Hemoglobin 12.6 g/dL (13.5-16.0); Immature Granulocytes Auto 0.03 Thou/mm3 (0.00-0.00); Lymphocytes # (Auto) 0.2 Thou/mm3 (1.0-4.8); Lymphocytes % (Auto) 3 % (10-50); Mean Corpuscular HGB Conc 35.4 g/dl (31.0-37.0); Mean Corpuscular Hemoglobin 31.7 pg (25.0-35.0); Mean Corpuscular Volume 89 fL (80-100); Monocytes # (Auto) 0.7 Thou/mm3 (0.0-0.8); Monocytes % (Auto) 7 % (0-12); Neutrophils # (Auto) 8.2 Thou/mm3 (1.8-7.7); Neutrophils % (Auto) 89 % (37-80); Nucleated Red Blood Cell # 0.00 Thou/mm3 (0.00-0.00); Nucleated Red Blood Cell % 0 /100 WBC (0); Platelet Count 203 Thou/mm3 (140-440); RDW Standard Deviation 49.1 fL (35.1-43.9); Red Blood Count 3.98 Miln/mm3 (4.50-5.90); White Blood Count 9.3 Thou/mm3 (3.8-10.6)
[2025-03-13 01:48] LABS: Alanine Aminotransferase 22 U/L (10-49); Albumin, Serum 3.8 gm/dL (3.4-4.8); Albumin/Globulin Ratio 2.0 (1.2-2.2); Alkaline Phosphatase 89 U/L (46-116); Anion Gap 6 (7-16); Aspartate Amino Transferase 24 U/L (0-34); BUN/Creatinine Ratio 16 Ratio (12-20); Bilirubin,Total 1.2 mg/dL (0.3-1.2); Blood Urea Nitrogen 18 mg/dL (9-23); Calcium 10.8 mg/dL (8.3-10.6); Calcium (Corrected) 11.0 mg/dL (8.5-10.1); Carbon Dioxide 27.8 mMol/L (20.0-31.0); Chloride 98 mMol/L (98-107); Creatinine (Component) 1.1 mg/dL (0.6-1.3); Estimated Creatinine Clearance 93.1 mL/min (>60); Globulin 1.9 gm/dL (2.3-3.5); Glucose 115 mg/dL (74-106); Osmolality,Calculated 267 (275-295); Potassium 3.7 mMol/L (3.4-5.1); Sodium 132 mMol/L (136-145); Total Protein 5.7 gm/dL (5.7-8.2); eGFR > 60 See Note
[2025-03-13 01:52] LABS: Troponin I 0.054 ng/mL (0.0-0.045)
[2025-03-13] MEDS: ASPIRIN 81 MG CHEW 324 MG PO (02:45)
--- NOTE | 2025-03-13 03:15 | PC.NURSE ---
WE HAD DOWN TIME FROM [id number].
[2025-03-13 03:31] LABS: B-Type Natriuretic Peptide 52 pg/mL (0-100)
--- NOTE | 2025-03-13 04:34 | XR_ITS ---
Examination: AP chest single view TECHNIQUE: AP portable semiupright chest single view Date and time: March 13, 2025 0445 hours Comparison March 03, 2025 INDICATIONS: Shortness of breath today. FINDINGS: Early pneumonia left upper lobe. Normal heart size. Cardiac leads satisfactory position. Mild osteopenia. IMPRESSION: Early pneumonia left upper lobe
[2025-03-13 05:39] LABS: Troponin I 0.053 ng/mL (0.0-0.045)
[2025-03-13 06:33] LABS: Collection Type, Urine Voided; Squamous Epithelial Cell,Urine 0 /hpf (0-5)
[2025-03-13 06:33] LABS: Lactate (Lactic Acid) 1.1 mMol/L (0.4-2.0)
[2025-03-13 06:43] LABS: Bilirubin,Urine Negative (Negative); Blood,Urine Negative (Negative); Clarity,Urine Clear (Clear/Hazy); Color,Urine Lt-Yellow (Lt Yel-Yel); Glucose, Urine Negative (Negative); Ketones,Urine Negative (Negative); Leukocyte Esterase,Urine Negative (Negative); Nitrite,Urine Negative (Negative); PH,Urine 6.5 (5.0-7.0); Protein,Urine Negative (Neg - Trace); RBC,Urine 1 /hpf (0-3); Specific Gravity,Urine 1.013 (1.001-1.035); Urobilinogen,Urine Negative mg/dL (0.0-1.0); WBC,Urine 2 /hpf (0-5)
[2025-03-13 06:51] LABS: D-Dimer 413 ng/mL (<600)
[2025-03-13 07:06] LABS: COVID-19 Antigen (In-House) Negative (Negative)
[2025-03-13 07:07] LABS: Respiratory Syncytial Virus Ag Negative (Negative)
--- NOTE | 2025-03-13 07:24 | EDNOTE_ITS ---
Emergency Room Addendum Addendum Narrative: 0600: Care assumed from Dr. Flores, the previous shift emergency physician. Past medical, surgical, social and family history reviewed. Vitals and home medications reviewed. I will assume the care of the patient at this time, pending CTA report and final disposition. Please refer to the emergency department record for history and examination from initial visit.?The following addendum documentation note is intended to reflect any pending information, findings, or radiology results not included in the patient?s initial chart. 0825: On reassessment, patient reports feeling globally weak. Saturating 89-91% on room air. Patient reports he was admitted here 03/03/2025 through 03/07/2025 for abdominal pain and diagnosed with a high-grade bowel obstruction. States since arriving home he has felt globally weak with episodes of feeling very fatigued adding its hard to wake up . Sister reports she has checked pulse ox at home and noted the lowest to be 88% that improves with stimulating the patient. Patient additionally complains of pain, primarily to his back. However, states he has not taken his Methadone since 03/02/2025 due to hospitalization and taking Cipro. Sister adds he was due to start the Methadone today. Additionally reports he has had small bowel movements and been able to eat with intermittent episodes of vomiting. Plan at this time includes CT head and CT abdomen/pelvis. Per EMR review, medical history includes includes metastatic prostate cancer currently on chemotherapy, bladder resections s/p urostomy, bradycardia s/p pacemaker, TIA, diabetes, and chronic pain currently on Methadone. 1102: I spoke with surgeon Dr. Herrera. Discussed patients PMHx, HPI, ED course, exam findings, labs, and radiology results. She agrees to consult. 1105: I spoke with resident working with Dr. Lerma. Discussed patients PMHx, HPI, ED course, exam findings, labs, and radiology results. The hospitalist agree to accept the patient for admission. RADIOLOGY Ordering Physician: Angela Flores MD Date of Service: 03/13/25 Procedure(s): CT angio chest Accession Number(s): [id number] cc: Mario Hernández; Med Huston MD; Angela Flores MD~ Examination: CTA chest with intravenous contrast 2-D reconstructions 3-D reconstructions, vascular Date and time of exam: March 13, 2025, 0552 hours INDICATIONS: Hypoxia chest pain today, diagnosis malignant neoplasm prostate CTDI: vol (mGy) 15.2 DLP: (mGycm) 590 Technique: Multiple axial sections of the thorax have been obtained. 3 mm slice thickness, from below the hemidiaphragms to above the apices of the lungs. Mediastinal and lung density settings have been obtained. 2-D sagittal and coronal reconstructions. 3-D angiographic renderings, 3-D volume renderings, 3D post processing, vascular maximum intensity projections obtained. Contrast administered is 100 cc Isovue 370 intravenous. Low dose protocols were performed. One or more of the following dose reduction techniques were used; automated exposure control, adjustment of the mA and/or KV according to patient size, use of iterative reconstruction technique. Findings: No thoracic aortic aneurysmal dilatation or dissection No pulmonary artery emboli pneumonia diffusely in the left lung No pathologic mediastinal lymphadenopathy Heavy calcification left anterior descending coronary artery and left main coronary artery 3 mm pulmonary nodule in left upper lobe image 92 15 mm pulmonary nodule left upper lobe image 105 Liver is mildly irregular in contour No definite gallstones Spleen not enlarged No pancreatic or adrenal mass No hydronephrosis Dense T3 osteoblastic metastatic disease again noted IMPRESSION: Negative renal pulmonary artery emboli Heavy coronary artery calcification Noncalcified pulmonary nodules T3 osteoblastic metastasis Dictated By:Med Huston MD Signed By:<Electronically signed by Med Huston MD in [place]>03/13/25 0715 Ordering Physician: Angela Flores MD Date of Service: 03/13/25 Procedure(s): XR chest 1V portable Accession Number(s): [id number] cc: Mario Hernández; Med Huston MD; Angela Flores MD~ Examination: AP chest single view TECHNIQUE: AP portable semiupright chest single view Date and time: March 13, 2025 0445 hours Comparison March 03, 2025 INDICATIONS: Shortness of breath today. FINDINGS: Early pneumonia left upper lobe. Normal heart size. Cardiac leads satisfactory position. Mild osteopenia. IMPRESSION: Early pneumonia left upper lobe Dictated By: Med Huston MD Signed By: <Electronically signed by Med Huston MD in [place]> 03/13/25 0923 Ordering Physician: Bouchra Gonzales MD Date of Service: 03/13/25 Procedure(s): CT abdomen pelvis wo con Accession Number(s): [id number] cc: Mario Hernández; Med Huston MD; Bouchra Gonzales MD~ Examination: CT abdomen and pelvis without contrast. Coronal 3-D reconstructions. Sagittal 2-D reconstructions. Date and time of exam:March 13, 2025 0855 hours Comparison March 02, 2025 INDICATIONS: Generalized abdominal pain and distention today, small bowel obstruction pattern on CT abdomen pelvis March 02, 2025 CTDI: vol (mGy): 15.1 DLP: (mGycm): 1075 Technique: Axial images of the abdomen have been obtained, 3 mm slice thickness Intravenous contrast material has not been administered. Low dose protocols were performed. One or more of the following dose reduction techniques were used; automated exposure control, adjustment of the mA and/or KV according to patient size, use of iterative reconstruction technique. Findings: Atelectasis in the left lung No focal liver or splenic lesions No gallstones No pancreatic or adrenal mass Multiple fluid distended small bowel loops Extensive bilateral staghorn calculi Aortic calcification no aneurysmal dilatation Right ileostomy, dilated small bowel loops in the stoma region, likely incarcerated small bowel at this site No free air Moderate air and stool in the colon Bilateral hip arthroplasties IMPRESSION: Small bowel obstruction pattern, likely incarcerated small bowel in the patient's ileostomy, recommend surgical consultation Dictated By: Med Huston MD Signed By: <Electronically signed by Med Huston MD in [place]> 03/13/25 1006 Ordering Physician: Bouchra Gonzales MD Date of Service: 03/13/25 Procedure(s): CT head/brain wo con Accession Number(s): [id number] cc: Mario Hernández; Med Huston MD; Bouchra Gonzales MD~ Examination: CT brain head without contrast. 2-D sagittal coronal reconstructions Date and time of exam:March 13, 2025 0832 hours INDICATIONS: Altered mental status today CTDI: vol (mGy):56.7 DLP: (mGycm):1237 Technique: Multiple CT axial sections of the brain have been obtained, 5 mm slice thickness. Contrast has not been administered. 2-D sagittal, coronal reconstructions have been obtained Low dose protocols were performed. One or more of the following dose reduction techniques were used; automated exposure control, adjustment of the mA and/or KV according to patient size, use of iterative reconstruction technique. Findings: No significant ventricular enlargement. Intra-axial or extra-axial hemorrhage density is not seen. No mass effect or midline shift Basal cisterns are not remarkable. Fourth ventricle is midline. Cranial vault intact. Impression: Negative for acute hemorrhage, mass effect or midline shift Advise clinical correlation follow-up accordingly Dictated By: Med Huston MD Signed By: <Electronically signed by Med Saucedoelliott, MD in [place]> 07/02/25 1004
[2025-03-13 07:28] LABS: Procalcitonin 0.15 ng/ml (0.0-0.49)
--- NOTE | 2025-03-13 08:11 | PC.NURSE ---
Report received from pm nurse, patient to er with c/o gen. weakness and diarrhea that started intermittently since last when he was released from hosp. for SBO, skin warm dry and pink, chart up for review, Dr. Gonzales made aware. Sister at bedside, call light within reach.
--- NOTE | 2025-03-13 08:19 | PC.NURSE ---
Dr. Gonzales at bedside speaking with patient and his sister at bedside.
--- NOTE | 2025-03-13 08:28 | XR_ITS ---
Examination: CT abdomen and pelvis without contrast. Coronal 3-D reconstructions. Sagittal 2-D reconstructions. Date and time of exam:March 13, 2025 0855 hours Comparison March 02, 2025 INDICATIONS: Generalized abdominal pain and distention today, small bowel obstruction pattern on CT abdomen pelvis March 02, 2025 CTDI: vol (mGy): 15.1 DLP: (mGycm): 1075 Technique: Axial images of the abdomen have been obtained, 3 mm slice thickness Intravenous contrast material has not been administered. Low dose protocols were performed. One or more of the following dose reduction techniques were used; automated exposure control, adjustment of the mA and/or KV according to patient size, use of iterative reconstruction technique. Findings: Atelectasis in the left lung No focal liver or splenic lesions No gallstones No pancreatic or adrenal mass Multiple fluid distended small bowel loops Extensive bilateral staghorn calculi Aortic calcification no aneurysmal dilatation Right ileostomy, dilated small bowel loops in the stoma region, likely incarcerated small bowel at this site No free air Moderate air and stool in the colon Bilateral hip arthroplasties IMPRESSION: Small bowel obstruction pattern, likely incarcerated small bowel in the patient's ileostomy, recommend surgical consultation
--- NOTE | 2025-03-13 08:28 | XR_ITS ---
Examination: CT brain head without contrast. 2-D sagittal coronal reconstructions Date and time of exam:March 13, 2025 0832 hours INDICATIONS: Altered mental status today CTDI: vol (mGy):56.7 DLP: (mGycm):1237 Technique: Multiple CT axial sections of the brain have been obtained, 5 mm slice thickness. Contrast has not been administered. 2-D sagittal, coronal reconstructions have been obtained Low dose protocols were performed. One or more of the following dose reduction techniques were used; automated exposure control, adjustment of the mA and/or KV according to patient size, use of iterative reconstruction technique. Findings: No significant ventricular enlargement. Intra-axial or extra-axial hemorrhage density is not seen. No mass effect or midline shift Basal cisterns are not remarkable. Fourth ventricle is midline. Cranial vault intact. Impression: Negative for acute hemorrhage, mass effect or midline shift Advise clinical correlation follow-up accordingly
--- NOTE | 2025-03-13 12:14 | PC.NURSE ---
Dr. Lerma at bedside to evaluate patient for admission
--- NOTE | 2025-03-13 12:46 | PD.SURCONS ---
HPI Consult details History of present illness: 69M with HLD, DM, prostate CA s/p resection with ileal conduit at [facility] in 2020 who presented with weakness. Pt states he felt lethargic with difficulty waking up which is what prompted him to come to ER this time. He denies any recent abdominal pain, nausea/vomiting stating he has been eating well the last few days and had a soft BM yesterday. His ileal conduit has been functioning appropriately and he is feeling hungry right now. CT in ER was read as hernia adjacent to ileal conduit with possible SBO Review of Systems Review of Systems ROS Unobtainable: All systems reviewed & no additional complaints except as documented Meds Home Medications and Allergies Home Medications ?Medication ?Instructions ?Recorded ?Confirmed ?Type metformin 500 mg tablet 500 mg PO BIDAC #0 tabs 08/05/15 03/03/25 History (Glucophage) trazodone 50 mg tablet 50 mg PO BID Sleep 05/13/23 03/04/25 History atorvastatin 40 mg tablet 40 mg PO .aday 03/03/25 03/03/25 History fluoxetine 20 mg capsule (Prozac) 20 mg PO QDAY 03/03/25 03/03/25 History furosemide 40 mg tablet 40 mg PO Q12H PRN edema 03/03/25 03/03/25 History methadone 10 mg tablet 10 mg PO BID 03/03/25 03/03/25 History pregabalin 100 mg capsule (Lyrica) 100 mg PO BID 03/03/25 03/03/25 History Allergies Allergy/AdvReac Type Severity Reaction Status Date / Time bacitracin Allergy Mild Rash Verified 03/12/25 22:58 gramicidin D Allergy Mild Rash Verified 03/12/25 22:58 neomycin Allergy Mild Rash Verified 03/12/25 22:58 Exam Vital Signs Temp Pulse Resp BP Pulse Ox O2 Del Method O2 Flow Rate 98.6 F 68 19 136/77 H 94 L Room Air 2 03/13/25 10:30 03/13/25 12:26 03/13/25 12:26 03/13/25 12:03/13/25 12:03/13/25 12:03/13/25 08:03 Constitutional Constitutional: no acute distress Routine Respiratory Exam Respiratory: Present no resp distress Routine Abdominal Exam Abdominal: Present soft and ostomy (urostomy pink with clear yellow urine in appliance); Absent tenderness or distended Results Results: Laboratory Laboratory results: results reviewed Results: Imaging CT scan - abdomen: report reviewed and image reviewed Assessment & Plan Plan 69M with HLD, DM, prostate CA s/p resection with ileal conduit at [facility] in 2020, presenting with weakness but with no abdominal pain, nausea/vomiting and having appropriate urostomy output. Pt does not have any clinical signs of SBO so is ok to resume a diet and does not require any surgical intervention. He did state that his urologist Dr Marcus advised him not to have surgery on the hernia anywhere else besides [facility] Diet as tolerated Please reconsult if needed
--- NOTE | 2025-03-13 12:51 | PC.NURSE ---
Patient c/o feeling sore to right buttock, blanchable redness noted to that area, no open wound noted, placed Allevyn to right buttock per patient's request.
[2025-03-13 13:58] LABS: Ammonia 13 uMol/L (11-32)
[2025-03-13 13:59] LABS: Magnesium 2.3 mg/dL (1.6-2.6); Parathyroid Hormone Intact 7.1 pg/ml (18.5-88.0); Troponin I 0.041 ng/mL (0.0-0.045)
[2025-03-13 14:17] LABS: Syphilis Nonreactive (Nonreactive)
[2025-03-13 14:52] LABS: Folate > 24.00 ng/mL (>5.38); Vitamin B12 358 pg/mL (211-911)
--- NOTE | 2025-03-13 14:52 | PC.CC ---
Patient is a 69 year-old male who presents to the hospital for SBO. OTTONIELWLetty and CLOTH FOLDER [employer] Student Mehreen made [id number] contact with patient. ASW introduced self, role, and reason for visit. Patient appeared alert and oriented to self, location, and situation. Patient provided consent for CLOTH FOLDER HAND to remain in the room during assessment. Patient was pleasant and engaged in initial assessment. Patient confirmed information on the demographics and reports to living with his sister, Alma Munoz . Patient reports that in the event of a medical emergency her medical decision maker would be his sister, Alma. Patient reports that prior to the event that led him to the hospital he was able to ambulate independently and complete his own ADLs. Patient does not require any DME, oxygen, and he is not a diaylsis patient. Patient's primary care provider is Chris Foley and uses [facility] pharmacy for prescription medication. Upon discharge the patient plans to return home with his sister. emergency services director to follow up with any discharge needs.
--- NOTE | 2025-03-13 15:10 | ESHP_ITS ---
<Statement entered by Natalia Romano MD - 03/13/25 21:30> 69-year-old male with a medical history of prostate cancer, pedal edema, hyperlipidemia, and a urostomy presenting with 3 day hx of worsening weakness, fatigue, lightheadedness, somnolence, and productive cough admited for work up of pre-syncope. KUB showed SBO, he had a history of SBO on recent admission from last week. Evaluated by general surgery who does not believe his SBO, recommended no intervention at this time. He reported bowel movements this morning and currently passing flatus. Abdomen nontender on exam. Bowel sounds present in all quadrants. Admitted for presyncope workup, CT is negative. Likely dehydration in settings of pneumonia seen on x-ray. He also reports a productive cough with green sputum. We're treating with broad-spectrum ANTIBIOTICS to cover for HCAP as well. Cultures are pending. An episode of fever at home, and found desatting by EMS. However currently afebrile, no leukocytosis, on room air satting well. For workup including TSH, orthostatics, echocardiogram, and others. Electrolytes within normal limits. Labs are showing secondary hyperthyroidism with low PTH elevated calcium which is likely due to his malignancy. Will continue follow-up with VITAMIN D, phosphorus and mag. Currently on sliding scale INSULIN. Will transition to long-acting INSULIN tomorrow. Case was discussed with attending physician and senior resident. Natalia Romano DO PGY II This document was transcribed using voice recognition technology. Minor inaccuracies may be present. Documentation for date of: 03/13/25 HPI History of Present Illness History of present illness: History of Present Illness: 69-year-old male with a medical history of prostate cancer, pedal edema, hyperlipidemia, and a urostomy, who was admitted 1 week ago for small bowel obstruction, returned to the ED with complaints of generalized weakness, lightheadedness, low-grade fever, and productive cough with light green sputum. SpO2 measured during the past couple days has gotten as low as 82%. Admits to dizziness. Denies headaches. Symptoms have been present for the past 3 days and worsening. He has experienced unprecedented difficulty maintaining his balance while taking 50ft walks in and around his house. Sister noted he has been more difficult to awaken in the mornings. He denies chest pain, palpitations, or dyspnea. Admits to nausea, and vomiting with coughs 2 days ago. Denies diarrhea, dysuria, or issues with his urostomy appliance. There is no new or worsening lower extremity edema. Past Medical History: * T2DM * SBO requiring hospitalization * TIA * pedal edema * hyperlipidemia * metastatic prostate cancer s/p Past Surgical History: * Prostate and bladder resection * s/p urostomy placement * C5-C6, and C6-C7 herniated intervertebral disk repair * Pacemaker placement * Eye surgery (Rt carcinoma removal) * Tonsillectomy * Hip replacement b/l * Lt knee replacement * Lt hand index finger tip amputation Medications: * FUROSEMIDE 40 mg BID PRN, ATORVASTATIN 40 mg, METFORMIN 500 BID, TRAZODONE 50 mg BID, METHADONE 10 mg BID, FLUOXETINE 20 mg daily, PREGABALIN 100 mg BID. Allergies: * Rash to BACITRACIN, ROMYCIN, NEOMYCIN Social History: * Denies using tobacco products, smoking marijuana, or illicit drug use. Denies alcohol use. 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 ED Course: * Patient was noted to be hypoxic in the ED with oxygen saturation decreasing to 88% on room air. Reason for admission: Pre-Syncope work-up. Pt was hospitalized a week ago for treatment of SBO. CXR showed area of haziness in the left lower lobe of lung. Along with recent symptoms of productive cough, fever, de-satting, hospital acquired pneumonia needs to be ruled out. During the previous admission urine cultures were positve for Proteus, necessitating ABx coverage. Sepsis should be ruled out. Stroke as another possible etiology should be evaluated with imaging and echocardiogram. Exam Vital Signs Temp Pulse Resp BP Pulse Ox O2 Del Method O2 Flow Rate 99.0 F 70 20 121/60 94 L Room Air 2 03/13/25 14:24 03/13/25 14:24 03/13/25 14:24 03/13/25 14:24 03/13/25 14:24 03/13/25 14:03/13/25 08:03 Results: Labs 03/14/25 04:56 03/14/25 04:56 Labs: Short CBC 03/13/25 Range/Units 00:30 WBC 9.3 D (3.8-10.6) Thou/mm3 Hgb 12.6 L (13.5-16.0) g/dL Hct 35.6 L (41.0-53.0) % Plt Count 203 D (140-440) Thou/mm3 BMP 03/13/25 00:30 Sodium 132 L Potassium 3.7 Chloride 98 Carbon Dioxide 27.8 BUN 18 Creatinine 1.1 Glucose 115 H Calcium 10.8 H Cardiac Enzymes 03/13/25 03/13/25 03/13/25 Range/Units 00:30 04:57 13:18 Troponin I 0.054 H* 0.053 H* 0.041 (0.0-0.045) ng/mL Liver Function 03/13/25 Range/Units 00:30 Total Bilirubin 1.2 (0.3-1.2) mg/dL AST 24 (0-34) U/L ALT 22 (10-49) U/L Alkaline Phosphatase 89 (46-116) U/L Albumin 3.8 (3.4-4.8) gm/dL Urine 03/13/25 Range/Units 06:10 Urine Color Lt-Yellow (Lt Yel-Yel) Urine Clarity Clear (Clear/Hazy) Urine pH 6.5 (5.0-7.0) Ur Specific Rumsey 1.013 (1.001-1.035) Urine Protein Negative (Neg - Trace) Urine Glucose (UA) Negative (Negative) Quality Measures Quality Measures none Advance care planning discussed with:: patient (will be discussed with the patient in the morning) Medications Home Medications and Allergies Home Medications ?Medication ?Instructions ?Recorded ?Confirmed ?Type metformin 500 mg tablet 500 mg PO BIDAC #0 tabs 07/1403/13/25 History (Glucophage) trazodone 50 mg tablet 50 mg PO BID Sleep 05/13/23 03/13/25 History atorvastatin 40 mg tablet 40 mg PO .aday 03/03/2511/06 History fluoxetine 20 mg capsule (Prozac) 20 mg PO QDAY 03/13/25 History methadone 10 mg tablet 10 mg PO BID 03/03/25 History Held on 03/13/25. Instructions: on cipro, Contraindicated pregabalin 100 mg capsule (Lyrica) 100 mg PO TID 03/0303/13/25 History Xtandi 160 mg PO DAILY 03/13/2511/06 History furosemide 20 mg tablet 20 mg PO DAILY 03/13/25 0711/06 History Allergies Allergy/AdvReac Type Severity Reaction Status Date / Time bacitracin Allergy Mild Rash Verified 03/12/25 22:58 gramicidin D Allergy Mild Rash Verified 03/12/25 22:58 neomycin Allergy Mild Rash Verified 03/12/25 22:58 Visit Medications Acetaminophen (Acetaminophen 325 Mg Tablet) 650 mg PO Q6H PRN PRN Reason: Fever >101.5 Stop: 04/12/25 12:38 Acetaminophen (Acetaminophen 325 Mg Tablet) 650 mg PO Q6H PRN PRN Reason: PAIN SCALE 1-3 (mild Stop: 04/12/25 12:38 Hydrocodone Bitart/Acetaminophen (Hydrocodone/Apap 10/325 Tab) 1 tab PO Q4H PRN PRN Reason: PAIN SCALE 4-6 (Moderate Stop: 03/18/25 12:38 Enoxaparin Sodium (Enoxaparin Sod Inj 40 Mg/0.4 Ml Syringe) 40 mg SC QDAY JILL Stop: 03/28/25 08:59 Ondansetron HCl (Ondansetron Inj 2 Mg/Ml Inj 2 Ml) 4 mg IVP Q6H PRN; Protocol PRN Reason: NAUSEA OR VOMITING Stop: 04/12/25 12:38 Discontinued Medications Aspirin (Aspirin 81 Mg Chew) 324 mg PO X1 ONE Stop: 03/13/25 01:58 Last Admin: 03/13/25 02:45 Dose: 324 mg Sodium Chloride (Ns) 1,000 mls @ 999 mls/hr IV .Q1H1M ONE Stop: 03/13/25 01:40 Last Admin: 03/13/25 00:48 Dose: Not Given Assessment & Plan Plan 69-year-old male with a medical history of prostate cancer, pedal edema, hyperlipidemia, and a urostomy presenting with 3 day hx of worsening weakness, fatigue, lightheadedness, somnolence, and productive cough admited for work up of pre-syncope. #Pre-syncope Ddx includes stroke, pneumonia, UTI, electrolyte abnormality, dehydration, atypical presentation of coronary artery disease. Patient demonstrated acute functional decline, including bilateral weakness, difficulty ambulating, felt lightheaded, and was described as difficult to arouse this morning. CT of head w/o contrast was Negative for acute hemorrhage, mass effect or midline shift. UA negative for UTI; he denies symptoms, although previously grew Proteus and completed course of ABX. We are covering with ABx as below and will follow up with urine cultures. Plan -CTA chest -Doppler echocardiogram -CBC/ CMP in AM #Pneumonia (likely), HAP vs CAP Reports cough productive of light green sputum and fever 101F, found hypoxemic by EMS with sats in 88%. CXR showed possible Lt basal PNA. He was in the hospital 1 week ago, will cover with broad-spec abx for now and follow-up cultures. Negative COVID and INFLUENZA A/B. Currently aspetic, afebrile, WBC 9.3 with left shift. Satting 95% on RA. Plan - continue ceftriaxone 1 g daily (03/13 -) - continue doxycycline 100 mg bid (03/13 -) - CPAP/ BiPAP as necessary - pending cultures: blood, sputum, urine - pending MRSA nasal screen #Concern for SBO, reason for previous admission (ruled out) KUB showed SBO pattern, although patient reports BM this morning and has been passing flatus. On exam, abdomen distended, but non-tender. Surgery on board, does not believe it's SBO, no surgical interventions needed. Although has complicated abdominal anatomy 2/2 prostatectomy and cystectomy surgeries AT this time, SBO ruled out. but will continue to monitor and repeat KUB as indicated. Plan: - MiraLAX to stimulate BM and control stool form. #Secondary Hyporparathyroidism Likely secondary to hypercalcemia of malignancy Calcium 10.8 and PTH 7.1 - pending vitD 25 levels AM draw - pending phosphorus and magnesium #Non -Insulin dependent type 2 Diabetes Pt takes metformin at home Plan: - sliding scale insulin regiment - pending HgA1C #Pedal Edema Concern for CHF Plan -echocardiogram #Hyperlipidemia -Lipid panel in AM #Hx of metastatic prostate cancer Hx of prostate and bladder resection s/p urostomy bag Patient on hormone suppression therapy with Lupron and Extendin #Bradycardia s/p pacemaker #Hx of TIA #Depression -Resume pt's home Prozac -hold Trazadone while pt is drowsy Disposition: Likely discharge home in 4-5 days pending clinical improvement Diet: dysphagia -Pureed GI prophylaxis: protonix DVT prophylaxis: SCDs Code: Full Case was discussed with attending physician, Dr. Lerma, and senior resident Dr. Romano. Abhishek Richardson, DO PGY I Attending Provider Attestation/Addendum I attest that I was physically present for the evaluation, physical examination, lab and imaging review of the patient with the residents. I discussed the case with the residents and agree with the findings and plans of care as documented above. After examination of the patient and review of the clinical data I feel that this patient needs admission to the hospital for further treatment/evaluation. Robert Lerma MD
[2025-03-13 15:11] LABS: Base Excess 3 (-3-3); HCO3 26 mEq/L (20-26); Inspired Oxygen, FIO2 21 %; O2 Saturation 92 % (91-98); PCO2 36 mmHg (32.0-48.0); PO2 67 mmHg (83-108); pH, Arterial 7.47 (7.35-7.45)
[2025-03-13 15:13] LABS: Allen Test Not Performed; Puncture Site Right Radial
[2025-03-13] MEDS: cefTRIAXone/D5w 1gm IV premix 1 GM/50 ML BAG IV (19:16)
[2025-03-13] MEDS: POLYETHYLENE GLYCOL 17 GM PACKET PO (19:16)
[2025-03-13] MEDS: PREGABALIN 50 MG CAPSULE 100 MG PO (21:40)
[2025-03-13] MEDS: ATORVASTATIN CALCIUM 20 MG TABLET 40 MG PO (21:40)
[2025-03-13] MEDS: DOXYCYCLINE INJ 100 MG in SODIUM CHLORIDE 0.9% (POP) 100 ML IV (21:40)
[2025-03-14] VITALS (10 sets, daily range): BP systolic 120–151; BP diastolic 54–76; PULSE 63–89; RESP 14–90; TEMP 35.9–37.4; O2SAT 91–96; BMI 37.6
[2025-03-14] MEDS: ONDANSETRON INJ 2 MG/ML INJ 2 ML 4 MG IVP (02:33)
[2025-03-14 05:56] LABS: Basophils # (Auto) 0.0 Thou/mm3 (0.0-0.2); Basophils % (Auto) 0 % (0-2.5); Eosinophils # (Auto) 0.1 Thou/mm3 (0.0-0.5); Eosinophils % (Auto) 3 % (0-10); Hematocrit 36.3 % (41.0-53.0); Hemoglobin 12.2 g/dL (13.5-16.0); Immature Granulocytes Auto 0.01 Thou/mm3 (0.00-0.00); Lymphocytes # (Auto) 0.2 Thou/mm3 (1.0-4.8); Lymphocytes % (Auto) 4 % (10-50); Mean Corpuscular HGB Conc 33.6 g/dl (31.0-37.0); Mean Corpuscular Hemoglobin 31.1 pg (25.0-35.0); Mean Corpuscular Volume 93 fL (80-100); Monocytes # (Auto) 0.4 Thou/mm3 (0.0-0.8); Monocytes % (Auto) 9 % (0-12); Neutrophils # (Auto) 3.9 Thou/mm3 (1.8-7.7); Neutrophils % (Auto) 84 % (37-80); Nucleated Red Blood Cell # 0.00 Thou/mm3 (0.00-0.00); Nucleated Red Blood Cell % 0 /100 WBC (0); Platelet Count 179 Thou/mm3 (140-440); RDW Standard Deviation 51.0 fL (35.1-43.9); Red Blood Count 3.92 Miln/mm3 (4.50-5.90); White Blood Count 4.6 Thou/mm3 (3.8-10.6)
[2025-03-14 06:15] LABS: Glucose Estimated Average 126 mg/dL (80-131); Hemoglobin A1C 6.0 % Hgb (4.8-6.0)
[2025-03-14 06:16] LABS: INR 1.1 (0.9-1.3); Prothrombin Time 11.6 Seconds (9.0-12.2)
[2025-03-14 06:29] LABS: Alanine Aminotransferase 17 U/L (10-49); Albumin, Serum 3.5 gm/dL (3.4-4.8); Albumin/Globulin Ratio 1.8 (1.2-2.2); Alkaline Phosphatase 88 U/L (46-116); Anion Gap 7 (7-16); Aspartate Amino Transferase 20 U/L (0-34); BUN/Creatinine Ratio 20 Ratio (12-20); Bilirubin,Total 0.6 mg/dL (0.3-1.2); Blood Urea Nitrogen 20 mg/dL (9-23); Calcium 8.8 mg/dL (8.3-10.6); Calcium (Corrected) 9.2 mg/dL (8.5-10.1); Carbon Dioxide 24.4 mMol/L (20.0-31.0); Cardiac Risk Estimate 3.4 RATIO (4.0-6.7); Chloride 103 mMol/L (98-107); Cholesterol 75 mg/dL (132-200); Creatinine (Component) 1.0 mg/dL (0.6-1.3); Estimated Creatinine Clearance 102.4 mL/min (>60); Globulin 1.9 gm/dL (2.3-3.5); Glucose 93 mg/dL (74-106); HDL Cholesterol 22 mg/dL (40-60); LDL Cholesterol,Calculated 31 mg/dL (0-130); Magnesium 2.1 mg/dL (1.6-2.6); Osmolality,Calculated 270 (275-295); Phosphorous 1.7 mg/dL (2.4-5.1); Potassium 3.6 mMol/L (3.4-5.1); Sodium 134 mMol/L (136-145); Thyroid Stimulating Hormone 3.21 uIU/mL (0.55-4.78); Total Protein 5.4 gm/dL (5.7-8.2); Triglycerides 111 mg/dL (30-150); eGFR > 60 See Note
[2025-03-14 06:31] LABS: Vitamin D 25 Hydroxy Total 35.2 ng/mL (7.3-40.2)
[2025-03-14] MEDS: ENOXAPARIN SOD INJ 40 MG/0.4 ML SYRINGE SC (09:10)
[2025-03-14] MEDS: POTASSIUM PHOS 22.5 MMOL in SODIUM CHLORIDE 0.9% 500 ML 500 ML 82.778 MMOL IV (09:10)
[2025-03-14] MEDS: PREGABALIN 50 MG CAPSULE 100 MG PO (09:11)
[2025-03-14] MEDS: POLYETHYLENE GLYCOL 17 GM PACKET PO (09:11)
[2025-03-14] MEDS: DOXYCYCLINE INJ 100 MG in SODIUM CHLORIDE 0.9% (POP) 100 ML IV ×2 (09:12→20:48)
[2025-03-14] MEDS: cefTRIAXone/D5w 1gm IV premix 1 GM/50 ML BAG IV (09:12)
--- NOTE | 2025-03-14 14:48 | PC.SS ---
Rounding note: patient experiencing generalized weakness. 1-2 more days before d/c home.
--- NOTE | 2025-03-14 14:50 | XR_ITS ---
Examination: Small bowel series with KUB's Date and time: March 14, 2025 at 1648 hours INDICATIONS: CT examination March 13, 2025 fluid distended small bowel loops TECHNIQUE AND FINDINGS: Visualization Developer AP supine abdomen single view Patient received 120 cc Gastrografin through the orogastric tube with immediate, 30 minute and 1 hour films Contrast remains in the stomach Air distended small bowel loops are noted IMPRESSION: Contrast present in the stomach, recommend follow-up films 6:00 PM, 8:00 PM, 10:00 PM
--- NOTE | 2025-03-14 16:08 | PD.RESCONSUL ---
HPI Data of Consult Requesting Physician: Robert Lerma MD Admitting Provider: Robert Lerma MD Attending Provider: Robert Lerma MD Primary Care Provider: Mario Hernández Consult Narrative History of present illness: Mr. 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 Admitted for work up of pre-syncope and management of left basilar PNA, treating with ceftriaxone and doxycycline. Of note, patient was recently admitted to hospital for SBO. Patient accompanied by sister who contributed to history. Patient pain management with Methadone and Lyrica. Patient reports generalized weakness and fatigue on interview today. cc:: cc: Robert Lerma MD Review of Systems Review of Systems Narrative Review of Systems: 14 point ROS negative other than HPI Exam Vital Signs Temp Pulse Resp BP Pulse Ox O2 Del Method O2 Flow Rate 97.0 F 67 26 H 130/76 93 L Room Air 2 03/14/25 12:00 03/14/25 12:00 03/14/25 12:00 03/14/25 12:00 03/14/25 12:00 03/14/25 08:00 03/13/25 08:03 Narrative Exam General: No acute distress, well nourished HENT: Normocephalic, atraumatic, normal hearing Neck: Supple, non-tender, no JVD, no lymphadenopathy Lungs: Non-labored respirations, symmetric chest rise Heart: Peripheral pulses intact bilaterally Abdomen: Distended, non-tender Musculoskeletal: ROM limited due to weakness Skin: Skin is warm, dry, no rashes or lesions. Psychiatric: Cooperative, appropriate mood and affect Mental status: Orientation: Oriented to person, place, time, and situation. Lethargic but arousable Communication: Patient is cooperative and can follow simple instructions Language: Speech fluent, decreased rate, comprehension intact Cranial nerves: CN II: Visual aparicio intact CN III: Pupils equal, round, and reactive to light CN III, IV, : No gaze deviation, no nystagmus Horizontal pursuit: intact Vertical pursuit: intact Ptosis: none CN V: Facial sensation to light touch intact bilaterally at the forehead, cheeks, and jaw line CN VII: Face symmetric, no facial droop appreciated CN VIII: Able to hear and respond to conversation at normal volume CN IX, X: Palate elevation symmetric, uvula midline CN XI: Head turn and shoulder shrug strong, symmetric bilaterally CN XII: Normal tongue protrusion without deviation, no fasciculations Motor: Normal bulk and tone No atrophy No abnormal movements or fasciculations Muscle strength: Shoulder abduction: R 5/5 L 5/5 Elbow flexion: R 5/5 L 5/5 Elbow extension: R 5/5 L 5/5 Hip flexion: R 5/5 L 3/5 (chronic) Sensory: LUE > RUE Light touch (chronic) RLE: Light touch intact LLE: Light touch intact Reflexes: Biceps (C5-6): R 2+ L 2+ Brachioradialis (C5-6): R 2+ L 2+ Triceps (C7-8): R 2+ L 2+ Achilles (S1-2):R 2+ L 2+ Cerebellum: RUE: No dysmetria (finger to nose), no dysdiadochokinesia (rapid alternating movements) LUE: No dysmetria (finger to nose), no dysdiadochokinesia (rapid alternating movements) Gait: deferred Results Labs 03/15/25 05:16 03/15/25 05:16 Labs: Short CBC 03/14/25 Range/Units 04:56 WBC 4.6 D (3.8-10.6) Thou/mm3 Hgb 12.2 L (13.5-16.0) g/dL Hct 36.3 L (41.0-53.0) % Plt Count 179 (140-440) Thou/mm3 BMP 03/14/25 04:56 Sodium 134 L Potassium 3.6 Chloride 103 Carbon Dioxide 24.4 BUN 20 Creatinine 1.0 Glucose 93 Calcium 8.8 D Liver Function 03/14/25 Range/Units 04:56 Total Bilirubin 0.6 D (0.3-1.2) mg/dL AST 20 (0-34) U/L ALT 17 (10-49) U/L Alkaline Phosphatase 88 (46-116) U/L Albumin 3.5 (3.4-4.8) gm/dL ABG Interpretation ABG results: 03/13/25 15:07 ABG pH 7.47 H ABG pCO2 36 ABG pO2 67 L ABG HCO3 26 ABG O2 Saturation 92 ABG Base Excess 3 Quality Measures Quality Measures none Advance care planning discussed with:: patient and sibling Medications Home Medications and Allergies Home Medications ?Medication ?Instructions ?Recorded ?Confirmed ?Type metformin 500 mg tablet 500 mg PO BIDAC #0 tabs 08/05/15 03/13/25 History (Glucophage) trazodone 50 mg tablet 50 mg PO BID Sleep 05/13/23 03/13/25 History atorvastatin 40 mg tablet 40 mg PO .aday 03/03/25 03/13/25 History fluoxetine 20 mg capsule (Prozac) 20 mg PO QDAY 03/03/25 03/13/25 History methadone 10 mg tablet 10 mg PO BID 03/03/25 03/13/25 History Held on 03/13/25. Instructions: on cipro, Contraindicated pregabalin 100 mg capsule (Lyrica) 100 mg PO TID 03/03/25 03/13/25 History Xtandi 160 mg PO DAILY 03/13/25 03/13/25 History furosemide 20 mg tablet 20 mg PO DAILY 03/13/25 03/13/25 History Allergies Allergy/AdvReac Type Severity Reaction Status Date / Time bacitracin Allergy Mild Rash Verified 03/12/25 22:58 gramicidin D Allergy Mild Rash Verified 03/12/25 22:58 neomycin Allergy Mild Rash Verified 03/12/25 22:58 Visit Medications Acetaminophen (Acetaminophen 325 Mg Tablet) 650 mg PO Q6H PRN PRN Reason: Fever >101.5 Stop: 04/12/25 12:38 Acetaminophen (Acetaminophen 325 Mg Tablet) 650 mg PO Q6H PRN PRN Reason: PAIN SCALE 1-3 (mild Stop: 04/12/25 12:38 Hydrocodone Bitart/Acetaminophen (Hydrocodone/Apap 10/325 Tab) 1 tab PO Q4H PRN PRN Reason: PAIN SCALE 4-6 (Moderate Stop: 03/18/25 12:38 Atorvastatin Calcium (Atorvastatin Calcium 20 Mg Tablet) 40 mg PO HS JILL Stop: 04/12/25 20:59 Last Admin: 03/13/25 21:40 Dose: 40 mg Dextrose (Dextrose 50%-Water Inj 50 Ml Syringe) 25 ml IV Q15MIN PRN PRN Reason: BG 50-70 responsive npo pt Stop: 04/12/25 17:53 Dextrose (Dextrose 50%-Water Inj 50 Ml Syringe) 50 ml IV Q15MIN PRN PRN Reason: BG <50 OR BG <70 & pt unresponsive Stop: 04/12/25 17:53 Enoxaparin Sodium (Enoxaparin Sod Inj 40 Mg/0.4 Ml Syringe) 40 mg SC QDAY [facility] Stop: 03/28/25 08:59 Last Admin: 03/14/25 09:10 Dose: 40 mg Fluoxetine HCl (Fluoxetine Hcl 10 Mg Capsule) 20 mg PO QDAY [facility] Stop: 04/12/25 17:59 Last Admin: 03/14/25 09:11 Dose: 20 mg Glucagon (Glucagon Inj 1 Mg Vial) 1 mg IM Q15MIN PRN PRN Reason: BG <70, and no IV access Doxycycline Hyclate 100 mg/ (Sodium Chloride) 100 mls @ 100 mls/hr IV BID [facility] Stop: 03/20/25 20:59 Last Admin: 03/14/25 09:12 Dose: 100 mls/hr Ceftriaxone Sodium/Dextrose (Rocephin/D5w 1gm Iv Premix) 1 gm in 50 mls @ 100 mls/hr IV QDAY [facility] Stop: 03/20/25 17:59 Last Admin: 03/14/25 09:12 Dose: 100 mls/hr Insulin Human Lispro (Insulin Lispro (Admelog) 1 Unit/0.01 Ml Unit) 0 unit SC [facility]; Protocol Stop: 04/12/25 20:59 Last Admin: 03/14/25 12:55 Dose: Not Given Ondansetron HCl (Ondansetron Inj 2 Mg/Ml Inj 2 Ml) 4 mg IVP Q6H PRN; Protocol PRN Reason: NAUSEA OR VOMITING Stop: 04/12/25 12:38 Last Admin: 03/14/25 02:33 Dose: 4 mg Polyethylene Glycol (Polyethylene Glycol 17 Gm Packet) 17 gm PO QDAY [facility] Stop: 04/12/25 17:59 Last Admin: 03/14/25 09:11 Dose: 17 gm Pregabalin (Pregabalin 50 Mg Capsule) 100 mg PO BID [facility] Stop: 04/12/25 20:59 Last Admin: 03/14/25 09:11 Dose: 100 mg Discontinued Medications Aspirin (Aspirin 81 Mg Chew) 324 mg PO X1 ONE Stop: 03/13/25 01:58 Last Admin: 03/13/25 02:45 Dose: 324 mg Sodium Chloride (Ns) 1,000 mls @ 999 mls/hr IV .Q1H1M ONE Stop: 03/13/25 01:40 Last Admin: 03/13/25 00:48 Dose: Not Given Potassium Phosphate 22.5 mmol/ (Sodium Chloride) 507.5 mls @ 82.778 mls/hr IV X1 ONE Stop: 03/14/25 14:17 Last Admin: 03/14/25 09:10 Dose: 82.778 mls/hr Sodium Chloride (Sodium Chloride Rt 10% 15 Ml Nebu) 5 ml INH X1 ONE Stop: 03/13/25 17:49 Last Admin: 03/14/25 00:38 Dose: Not Given Assessment & Plan Plan #Lethargy #Hypoxia Continues to be lethargic but arousable despite holding methadone and trazadone. CT head w/o: Negative for acute hemorrhage, mass effect or midline shift UA negative for UTI, ammonia WNL, syphilis non-reactive, TSH WNL Left basilar PNA seen on CXR DDX: hypoxia, infection (PNA), metabolic (low phos), toxin Plan: - Supplemental O2 - Abx management per primary team - Can consider sleep study in outpatient setting - Pending echo #Pneumonia (likely), HAP vs CAP Reports cough productive of light green sputum and fever 101F, now afebrile, found hypoxemic by EMS with sats in 88%. CXR showed Lt basal PNA. CTA chest: Negative renal pulmonary artery emboli. Heavy coronary artery calcification. Noncalcified pulmonary nodules, T3 osteoblastic metastasis Plan - Management per primary team - ceftriaxone 1 g daily (03/13 -), doxycycline 100 mg bid (03/13 -) - Pending cultures: blood, sputum, urine #Hyperlipidemia Triglycerides 111, cholesterol low 75, LDL 31, HDL low 22 Home meds: Atorvastatin 40 mg daily Plan: - Continue home atorvastatin #Hx of metastatic prostate cancer Hx of prostate and bladder resection s/p urostomy bag Patient on hormone suppression therapy with Lupron and Extendin Home meds for pain management: Methadone, Lyrica Plan: - Continue home Lyrica - Further pain management per primary team. Avoid medications that increase somnolence or lower respiratory rate #Bradycardia s/p pacemaker #Hx of TIA #Depression Plan: - Resume pt's home Prozac - Hold Trazadone #Lumabr degenerative disc disease Spine MRI 03/12/25: Mild diffuse thoracic degenerative disc disease. Small thoracic disc bulges. Abnormal signal replacing the T3 vertebral body, Advanced degenerative disc disease L2-L3, Moderate degenerative disc disease L3-L4, L5-S1 4 mm central lumbar disc bulge extending to the left foramen with mild, left L5 ganglionic compression Chronic sensory deficit in LUE and chronic weakness in LLE Plan: - See above for pain management Plan discussed with Dr. Nikki Wu, PGY1 Attending Provider Attestation/Addendum I personally have seen and examined the patient at the bedside and I agreed with findings, assessment and plan of care. His mental status changes and worsening generalized weakness and fatigue are likely from metabolic causes. He would need sleep study as an outpatient. Continue to hold Trazodone. Agreed with keeping him on Prozac and pregabalin.
--- NOTE | 2025-03-14 16:15 | ECHO_ITS ---
Transthoracic Echo Report Ht (in): 73 Wt (lb): 300 Exam Location: Echo Lab Status: Inpatient Flaring Machine Operator: Jossie De Dios Indications: Procedure Performed: BP: 140 / 67 HR: 63 Technical Quality: Adequate MEASUREMENTS (Male / Female) Normal Values 2D ECHO LV Diastolic Diameter PLAX 4.1 cm 4.2 - 5.9 / 3.9 - 5.3 cm LV Systolic Diameter PLAX 2.2 cm IVS Diastolic Thickness 1.5 cm 0.6 - 1.0 / 0.6 - 0.9 cm LVPW Diastolic Thickness 1.1 cm 0.6 - 1.0 / 0.6 - 0.9 cm LV Relative Wall Thickness 0.6 LVOT Diameter 1.6 cm LA Volume Index 38.7 cm?/m? 16 - 28 cm?/m? Ascending Aorta Diameter 3.8 cm M-MODE AV Cusp Separation MM 1.4 cm DOPPLER AV Peak Velocity 183.0 cm/s AV Peak Gradient 13.4 mmHg LVOT Peak Velocity 103.0 cm/s LVOT Peak Gradient 4.2 mmHg AV Area Cont Eq pk 1.1 cm? MV Area PHT 3.2 cm? Mitral E Point Velocity 111.0 cm/s Mitral A Point Velocity 82.0 cm/s Mitral E to A Ratio 1.4 LV E' Lateral Velocity 6.9 cm/s Mitral E to LV E' Lateral Ratio 16.2 LV E' Septal Velocity 4.8 cm/s Mitral E to LV E' Septal Ratio 23.2 TR Peak Velocity 209.0 cm/s TR Peak Gradient 17.5 mmHg PV Peak Velocity 76.0 cm/s PV Peak Gradient 2.3 mmHg FINDINGS Left Ventricle Normal left ventricular size and systolic function with no obvious regional wall motion abnormalities. Mild left ventricular hypertrophy. Normal left ventricular diastolic filling pattern for age. The ejection fraction is visually estimated at 60% Right Ventricle The right ventricle is normal in size and systolic function. The estimated right ventricular systolic pressure, 17 mmHg. An ICD wire is present in the right ventricular cavity. Left Atrium The left atrial cavity size is mildly increased. Right Atrium The right atrium is normal by two-dimensional imaging, color flow and Doppler imaging with no structural abnormalities, no thrombus formation present. Atrial Septum The interatrial septum appears normal with no evidence of a shunt. Aorta The aorta is normal by two-dimensional, color flow and Doppler interrogation. Mitral Valve Mild mitral annular calcification. Trace mitral regurgitation. Aortic Valve The aortic valve is trileaflet and mildly sclerotic without stenosis.There is mild aortic regurgitation. Tricuspid Valve The tricuspid valve is normal by two-dimensional, color flow and Doppler interrogation. There is mild tricuspid regurgitation. Pulmonic Valve The pulmonic valve is not well visualized. There is no significant pulmonic valve regurgitation. Vessels The pulmonary artery appears normal. The inferior vena cava pulmonary and hepatic veins appear normal. Pericardium The pericardium is normal by two-dimensional imaging. There is no significant pericardial effusion. CONCLUSIONS Indications: Pre-Syncope Aortic root is normal in dimensions. Aortic valve leaflets show thickening sclerosis no significant stenosis with evidence of mild aortic valve regurgitation Mitral valve thickening with mild mitral regurgitation. Normal-sized left ventricle with excellent LV systolic function ejection fraction 60%. Normal right heart structures no evidence of pulmonary hypertension Mica Willams (Electronically Signed) Final Date: 15 March 2025 15:10
--- NOTE | 2025-03-14 16:49 | XR_ITS ---
Examination: AP chest single view TECHNIQUE: AP portable upright chest single view Date and time: 03/11/2025 1655 hours INDICATIONS: Post orogastric tube placement FINDINGS: Orogastric tube in the stomach in satisfactory position Parenchymal disease left upper lobe again noted Mild enlargement left ventricle Stable cardiac needs. No CHF IMPRESSION: Orogastric tube in the stomach satisfactory position
--- NOTE | 2025-03-14 18:30 | XR_ITS ---
Examination: Abdomen AP single view Technique: AP portable supine abdomen, single view Exam date and time: March 14, 2025 1822 hours INDICATIONS: Abdominal pain administration this week, dilated small bowel loops on CT abdomen pelvis study yesterday, three-hour delayed temporal small bowel series FINDINGS: Contrast in significantly distended small bowel loops IMPRESSION: Small bowel obstruction pattern Multiple additional delayed films will be obtained
--- NOTE | 2025-03-14 20:30 | XR_ITS ---
Examination: Abdomen AP single view Technique: AP portable supine abdomen, single view Exam date and time: March 14, 2025, 2028 hours INDICATIONS: 5 hour delay film for small bowel series today FINDINGS: Contrast is in the small bowel loops IMPRESSION: Small bowel obstruction pattern Recommend follow-up films 10:00 PM, 1:00 AM, 4:00 AM
--- NOTE | 2025-03-14 20:31 | ESPR_ITS ---
Documentation for date of: 03/14/25 Subjective Subjective Interval history: No acute overnight events. Continues to complain of fatigue, reports feeling out of it today. Had a smear BM today, but still passing flatus, complains of increasing abdominal distention. Denies fever, chills, headaches, chest pain, sob, cough, or urinary symptoms. Exam Vital Signs Temp Pulse Resp BP Pulse Ox O2 Del Method O2 Flow Rate 97.4 F 89 18 123/54 L 96 Room Air 2 03/14/25 17:45 03/14/25 17:45 03/14/25 17:45 03/14/25 17:45 03/14/25 17:45 03/14/25 08:00 03/13/25 08:03 Narrative Exam General: No acute distress, well nourished Eye: PERRL, EOMI, normal conjunctiva, no scleral icterus HENT: Normocephalic, atraumatic, clear tympanic membranes, normal hearing, moist oral mucosa, no sinus tenderness Neck: Supple, non-tender, no carotid bruits, no JVD, no lymphadenopathy Lungs: Clear to auscultation bilaterally, non-labored respirations, symmetric chest rise Heart: Normal S1 and S2, no S3 or S4 appreciated. Normal rate and regular rhythm, no murmurs, rubs gallops, or edema. Peripheral pulses intact bilaterally, capillary refill brisk distally Abdomen: Soft, non-tender, moderately distended and tympanitic, normal bowel sounds, no masses Musculoskeletal: Normal range of motion and strength, no tenderness or swelling Skin: Skin is warm, dry, no rashes or lesions. Neurologic: Alert, awake and oriented x3. Cranial nerves: II through XII grossly intact. Speech and language: Normal with no dysarthria or dysphasia. Motor system: Tone and bulk: Normal: Strength: 5 out of 5 in all 4 extremities; No pronator drift noted. Deep tendon reflexes: 2+ bilaterally symmetrical. Plantar reflex: Downgoing bilaterally. Sensory system: Intact to all modalities of sensation bilaterally. Coordination: Intact to [id number] and [id number] test bilaterally. No ataxia, no dysmetria, or dysdiadochokinesia noted. No intention tremors noted. Gait: not tested. No signs of meningeal irritation noted. Psychiatric: Cooperative, appropriate mood and affect Objective Labs 03/15/25 05:16 03/15/25 05:16 Labs: Laboratory Results - last 24 hr 03/14/25 04:56 WBC 4.6 D RBC 3.92 L Hgb 12.2 L Hct 36.3 L MCV 93 MCH 31.1 MCHC 33.6 RDW Std Deviation 51.0 H Plt Count 179 Neut % (Auto) 84 H Lymph % (Auto) 4 L [place] % (Auto) 9 Eos % (Auto) 3 Baso % (Auto) 0 Neut # (Auto) 3.9 Lymph # (Auto) 0.2 L [place] # (Auto) 0.4 Eos # (Auto) 0.1 Baso # (Auto) 0.0 Immature Gran # (Auto) 0.01 H Absolute Nucleated RBC 0.00 Immature Gran % 0 Nucleated RBC % 0 PT 11.6 INR 1.1 Sodium 134 L Potassium 3.6 Chloride 103 Carbon Dioxide 24.4 Anion Gap 7 BUN 20 Creatinine 1.0 Estim Creat Clear Calc 102.4 eGFR > 60 BUN/Creatinine Ratio [address] Glu mg/dL 126 Hemoglobin A1c 6.0 Calculated Osmolality 270 L Calcium 8.8 D Corrected Calcium 9.2 D Phosphorus 1.7 L Magnesium 2.1 Total Bilirubin 0.6 D AST 20 ALT 17 Alkaline Phosphatase 88 Total Protein 5.4 L Albumin 3.5 Globulin 1.9 L Albumin/Globulin Ratio 1.8 Triglycerides 111 Cholesterol 75 L LDL Cholesterol, Calc 31 HDL Cholesterol 22 L Cholesterol/HDL Ratio 3.4 L 25-OH Vitamin D Total 35.2 TSH 3.21 ABG Interpretation ABG results: 03/13/25 15:07 ABG pH 7.47 H ABG pCO2 36 ABG pO2 67 L ABG HCO3 26 ABG O2 Saturation 92 ABG Base Excess 3 Quality Measures Quality Measures none Advance care planning discussed with:: patient Assessment & Plan Assessment Current Active Medications: Generic Name Dose Route Start Last Admin Trade Name Freq PRN Reason Stop Dose Admin Acetaminophen 650 mg 03/13/25 12:39 Acetaminophen 325 Mg Tablet PO 04/12/25 12:38 Q6H PRN Fever >101.5 Acetaminophen 650 mg 03/13/25 12:39 Acetaminophen 325 Mg Tablet PO 04/12/25 12:38 Q6H PRN PAIN SCALE 1-3 (mild Hydrocodone Bitart/Acetaminophen 1 tab 03/13/25 12:39 Hydrocodone/Apap 10/325 Tab PO 03/18/25 12:38 Q4H PRN PAIN SCALE 4-6 (Moderate Atorvastatin Calcium 40 mg 03/13/25 21:00 03/13/25 21:40 Atorvastatin Calcium 20 Mg Tablet PO 04/12/25 20:59 40 mg HS JILL Administration Dextrose 25 ml 03/13/25 17:54 Dextrose 50%-Water Inj 50 Ml Syringe IV 04/12/25 17:53 Q15MIN PRN BG 50-70 responsive npo pt Dextrose 50 ml 03/13/25 17:54 Dextrose 50%-Water Inj 50 Ml Syringe IV 04/12/25 17:53 Q15MIN PRN BG <50 OR BG <70 & pt unresponsive Enoxaparin Sodium 40 mg 03/14/25 09:00 03/14/25 09:10 Enoxaparin Sod Inj 40 Mg/0.4 Ml Syringe SC 03/28/25 08:59 40 mg QDAY JILL Administration Fluoxetine HCl 20 mg 03/13/25 18:00 03/14/25 09:11 Fluoxetine Hcl 10 Mg Capsule PO 04/12/25 17:59 20 mg QDAY JILL Administration Glucagon 1 mg 03/13/25 17:54 Glucagon Inj 1 Mg Vial IM Q15MIN PRN BG <70, and no IV access Doxycycline Hyclate 100 mg/ 100 mls @ 100 mls/hr 03/13/25 21:00 03/14/25 09:12 Sodium Chloride IV 03/20/25 20:59 100 mls/hr BID JILL Administration Ceftriaxone Sodium/Dextrose 1 gm in 50 mls @ 100 mls/hr 03/13/25 18:00 03/14/25 09:12 Rocephin/D5w 1gm Iv Premix IV 03/20/25 17:59 100 mls/hr QDAY JILL Administration Insulin Human Lispro 0 unit 03/13/25 21:00 03/14/25 17:02 Insulin Lispro (Admelog) 1 Unit/0.01 Ml Unit SC 04/12/25 20:59 Not Given ACHS JILL Protocol Ondansetron HCl 4 mg 03/13/25 12:39 03/14/25 02:33 Ondansetron Inj 2 Mg/Ml Inj 2 Ml IVP 04/12/25 12:38 4 mg Q6H PRN Administration NAUSEA OR VOMITING Protocol Polyethylene Glycol 17 gm 03/13/25 18:00 03/14/25 09:11 Polyethylene Glycol 17 Gm Packet PO 04/12/25 17:59 17 gm QDAY JILL Administration Pregabalin 100 mg 03/13/25 21:00 03/14/25 09:11 Pregabalin 50 Mg Capsule PO 04/12/25 20:59 100 mg BID JILL Administration Plan 69-year-old male with a medical history of prostate cancer, pedal edema, hyperlipidemia, and a urostomy presenting with 3 day hx of worsening weakness, fatigue, lightheadedness, somnolence, and productive cough admited for work up of pre-syncope. Generalized weakness Pre-syncope Possible polypharmacy Likely multimodal: SBO, dehydration, infectious, polypharmacy given multi pain regimen, METHADONE, and psych meds. Reports 3 days of persistent generalized weakness, feeling weak, lightheaded, and overall feeling unwell. Low suspicion for cardiovascular or cerebrovascular causes, no focal neurological deficits, no chest pain or palpitations. He has a history of complicated abdominal anatomy secondary to urostomy, with recent history of SBO. He has evidence of SBO as discussed below, which may be causing dehydration and worsening symptoms. He is on multiple psych meds and pain control secondary to cancer which may be a contributing factor. CXR showed pneumonia which is addressed below. No hypoglycemia, no major electrolyte derangements. ? Pending physical therapy ? Pending recommendation from neurology. ? Continue IV fluids ? Daily labs SBO As seen on KUB, small bowel obstruction pattern. He is passing flatus, had smear of bowel movement today. Although remains distended, stomach is tympanitic, but nontender. ? Continue GASTROGRAFIN study ? NG suction ? Bowel rest Pneumonia (likely), HAP vs CAP Reports cough productive of light green sputum and fever 101F, found hypoxemic by EMS with sats in 88%. CXR showed possible Lt basal PNA. He was in the hospital 1 week ago, will cover with broad-spec abx for now and follow-up cultures. Negative COVID and INFLUENZA A/B. Currently aspetic, afebrile, WBC 9.3 with left shift. Satting 95% on RA. Plan - continue ceftriaxone 1 g daily (03/13 -) - continue doxycycline 100 mg bid (03/13 -) - CPAP/ BiPAP as necessary - pending cultures: blood, sputum, urine - pending MRSA nasal screen Secondary Hyporparathyroidism Hypercalcemia (resolved) Likely secondary to hypercalcemia of malignancy Calcium 10.8 and PTH 7.1 - pending vitD 25 levels AM draw - pending phosphorus and magnesium Non -Insulin dependent type 2 Diabetes Pt takes metformin at home Plan: - sliding scale insulin regiment - pending HgA1C Pedal Edema Concern for CHF Plan -echocardiogram Hyperlipidemia -Lipid panel in AM Hx of metastatic prostate cancer Hx of prostate and bladder resection s/p urostomy bag Patient on hormone suppression therapy with Lupron and Extendin Bradycardia s/p pacemaker Hx of TIA Depression -Resume pt's home Prozac -hold Trazadone while pt is drowsy Disposition: Likely discharge home in 4-5 days pending clinical improvement Diet: dysphagia -Pureed GI prophylaxis: protonix DVT prophylaxis: SCDs Code: Full Attending Provider Attestation/Addendum I attest that I was physically present for the evaluation, physical examination, lab and imaging review of the patient with the residents. I discussed the case with the residents and agree with the findings and plans of care as documented above. Robert Lerma MD
[2025-03-14] MEDS: MORPHINE SULF INJ 10 MG/ML VIAL IVP (20:45)
--- NOTE | 2025-03-14 22:30 | XR_ITS ---
Examination: Abdomen AP single view Technique: AP portable supine abdomen, single view Exam date and time: March 14, 2025 at 10:35 PM INDICATIONS: Abdominal distention suite, 7 hour delayed film for small bowel series today FINDINGS: Contrast present in distended small bowel loops There does appear to be contrast in the colon on the right side IMPRESSION: Incomplete small bowel obstruction
[2025-03-15] VITALS (7 sets, daily range): BP systolic 130–164; BP diastolic 71–75; PULSE 60–96; RESP 16–92; TEMP 36.1; O2SAT 91–98; BMI 37.6; BMI 37.8
--- NOTE | 2025-03-15 01:00 | XR_ITS ---
Examination: Abdomen AP single view Technique: AP portable supine abdomen, single view Exam date and time: March 15, 2025, 0056 hours INDICATIONS: Abdominal pain and distention this week, 10 hour delay film for small bowel series FINDINGS: Significantly air distended small bowel loops. However, contrast present throughout the colon IMPRESSION: Incomplete small bowel obstruction, contrast present in the colon on the current study, no further films are needed
[2025-03-15] MEDS: SODIUM CHLORIDE 0.9% 1000 ML 1,000 ML 80 ML IV (02:37)
--- NOTE | 2025-03-15 04:00 | XR_ITS ---
Examination: Abdomen AP single view Technique: AP portable supine abdomen, single view Exam date and time: March 15, 2025, 0350 hours INDICATIONS: 13 hour delayed film post small bowel series today, abdominal pain and distention FINDINGS: Air distended small bowel loops Abundant contrast in the colon IMPRESSION: Negative for complete small bowel obstruction
[2025-03-15 06:00] LABS: Basophils # (Auto) 0.0 Thou/mm3 (0.0-0.2); Basophils % (Auto) 0 % (0-2.5); Eosinophils # (Auto) 0.1 Thou/mm3 (0.0-0.5); Eosinophils % (Auto) 2 % (0-10); Hematocrit 35.9 % (41.0-53.0); Hemoglobin 12.3 g/dL (13.5-16.0); Immature Granulocytes Auto 0.02 Thou/mm3 (0.00-0.00); Lymphocytes # (Auto) 0.3 Thou/mm3 (1.0-4.8); Lymphocytes % (Auto) 8 % (10-50); Mean Corpuscular HGB Conc 34.3 g/dl (31.0-37.0); Mean Corpuscular Hemoglobin 31.8 pg (25.0-35.0); Mean Corpuscular Volume 93 fL (80-100); Monocytes # (Auto) 0.4 Thou/mm3 (0.0-0.8); Monocytes % (Auto) 11 % (0-12); Neutrophils # (Auto) 2.9 Thou/mm3 (1.8-7.7); Neutrophils % (Auto) 78 % (37-80); Nucleated Red Blood Cell # 0.00 Thou/mm3 (0.00-0.00); Nucleated Red Blood Cell % 0 /100 WBC (0); Platelet Count 233 Thou/mm3 (140-440); RDW Standard Deviation 51.3 fL (35.1-43.9); Red Blood Count 3.87 Miln/mm3 (4.50-5.90); White Blood Count 3.8 Thou/mm3 (3.8-10.6)
[2025-03-15 06:23] LABS: Alanine Aminotransferase 19 U/L (10-49); Albumin, Serum 3.6 gm/dL (3.4-4.8); Albumin/Globulin Ratio 1.9 (1.2-2.2); Alkaline Phosphatase 90 U/L (46-116); Anion Gap 8 (7-16); Aspartate Amino Transferase 23 U/L (0-34); BUN/Creatinine Ratio 24 Ratio (12-20); Bilirubin,Total 0.6 mg/dL (0.3-1.2); Blood Urea Nitrogen 22 mg/dL (9-23); Calcium 8.2 mg/dL (8.3-10.6); Calcium (Corrected) 8.5 mg/dL (8.5-10.1); Carbon Dioxide 24.5 mMol/L (20.0-31.0); Chloride 108 mMol/L (98-107); Creatinine (Component) 0.9 mg/dL (0.6-1.3); Estimated Creatinine Clearance 110.8 mL/min (>60); Globulin 1.9 gm/dL (2.3-3.5); Glucose 112 mg/dL (74-106); Magnesium 2.2 mg/dL (1.6-2.6); Osmolality,Calculated 283 (275-295); Phosphorous 1.2 mg/dL (2.4-5.1); Potassium 3.6 mMol/L (3.4-5.1); Sodium 140 mMol/L (136-145); Total Protein 5.5 gm/dL (5.7-8.2); eGFR > 60 See Note
[2025-03-15] MEDS: cefTRIAXone/D5w 1gm IV premix 1 GM/50 ML BAG IV (09:59)
[2025-03-15] MEDS: ENOXAPARIN SOD INJ 40 MG/0.4 ML SYRINGE SC (09:59)
[2025-03-15] MEDS: PREGABALIN 50 MG CAPSULE 100 MG PO (09:59)
[2025-03-15] MEDS: POT PHOS 15 mMol in NS 250 ML 15 MMOL/250 ML BAG 62.5 MMOL IV (11:04)
[2025-03-15] MEDS: POLYETHYLENE GLYCOL 17 GM PACKET PO (11:07)
[2025-03-15] MEDS: DOXYCYCLINE INJ 100 MG in SODIUM CHLORIDE 0.9% (POP) 100 ML IV (11:08)
--- NOTE | 2025-03-15 12:44 | ESDS_ITS ---
Planned Discharge Date 03/15/25 DS: Providers Provider Date of admission: 03/13/25 12:04 Primary care physician: Mario Hernández Admitting Provider: Robert Lerma MD Attending Provider on Admission: Robert Lerma MD Consults: 03/13/25 12:46 Consult to General Surgery Routine Comment: Consulting Provider: Carito Herrera 03/14/25 13:30 Consult to Neurology / Tele-Neurology Routine Comment: Generalized weakness, unknown source Consulting Provider: Carson Joradn 03/15/25 08:01 Referral Physical Therapy Routine Comment: Physician Instructions: Attending Provider on DC: Robert Lerma MD Discharging Provider: Robert Lerma MD DS: Diagnosis Problem List Completed Was Problem List Reviewed/Reconciled?: Yes Hospital Course Hospital Course Hospital course: The patient presented with persistent generalized weakness, pre-syncope, and lightheadedness for the past three days, likely exacerbated by multiple contributing factors. His history includes complicated abdominal anatomy due to a urostomy and a recent episode of small bowel obstruction (SBO), which may have led to dehydration and worsened his symptoms. He has a complex medication regimen for chronic pain (including methadone) and psychiatric conditions, raising concerns about polypharmacy. His clinical course was complicated by findings of pneumonia, likely healthcare-associated, supported by cough, green sputum, fever, and hypoxemia. Imaging revealed a potential left basal pneumonia, and he was started on broad-spectrum antibiotics. Additionally, laboratory work-up showed low phosphorus, which was replaced, and no major electrolyte derangements were noted. The patient's SBO was confirmed on imaging, with ongoing management including bowel rest, NG suction, and GASTROGRAFIN study with resolution of SBO. Neurological and cardiovascular causes for his weakness are unlikely, and no focal deficits were noted. His pneumonia is being managed with ceftriaxone and doxycycline, and he is being monitored for potential need for CPAP/BiPAP support. Physical therapy recommended Home with Home Health. Neurology was following and made adjustments to pain meds as below, recommended outpatient sleep study. His pneumonia is being monitored with negative COVID and influenza tests, and cultures have shown no growth. Patient was stable at the time of discharge. Labs and vitals were reviewed and were without significant derangement. He will be discharged to home with home health. He will follow-up with PCP, GI and neurology within 1-2 weeks of discharge. IMAGE FINDINGS: * Thoracic spine MRI showed mid diffuse thoracic degenerative disc disease, small thoracic disc bulging. * Lumbar spine MRI showed advanced degenerative disc of L2-L3, moderate degenerative disc disease of L3-L4, L5/S1 central laminal disc bulging. * Chest CTA was negative for pulmonary embolism but there was noncalcified pulmonary nodules, osteoblastic metastasis, heavy coronary artery calcification, patient aware of these findings. * CXR showed early left upper base pneumonia. * Abdominal pelvis CT showed small bowel obstruction pattern with likely incarcerated small bowel and ileostomy. * Head CT was negative for acute pathology. * Echocardiogram showed EF 60%, normal left ventricular and excellent LV systolic function, normal right heart structure without evidence of pulmonary hypertension. * Small bowel series showed complete resolution of small bowel obstruction. PATIENT INSTRUCTIONS: * Follow-up with PCP within 1-2 weeks of discharge. * Follow-up with your GI doctor, Dr. Mortensen, within 1-2 weeks of discharge. * Follow-up with your neurologist, Dr. Jordan, within 1-2 weeks of discharge. * Please request for follow up phosphorus level in 1 week. * Please request sleep study within 1-2 weeks. * Continue working with physical therapy at home. * Continue taking MIRALAX and senna daily as needed for constipation. * STOP taking TRAZODONE, discussed with your PCP or neurologist before restarting this medication, and if you still have trouble sleeping. * Continue taking METHADONE 10 mg BID. * Continue taking PREGABALIN (LYRICA) twice daily instead of 3 times a day, which has a tendency to make you drowsy and fatigued (DOSE CHANGE) * Continue taking PROZAC 20 mg daily * Continue taking medications as prescribed below. * Return to Emergency Room if symptoms persist, worsen, or new symptoms develop. ADMISSION DIAGNOSES: Generalized weakness (resolved) Pre-syncope (resolved) Possible polypharmacy SBO (resolved) Pneumonia (likely), HAP vs CAP Secondary Hyporparathyroidism Hypercalcemia (resolved) Non -Insulin dependent type 2 Diabetes Pedal Edema Hyperlipidemia Hx of metastatic prostate cancer Bradycardia s/p pacemaker Hx of TIA Depression Case was discussed with attending physician. Natalia Romano DO PGY II This document was transcribed using voice recognition technology. Minor inaccuracies may be present. Time Spent with Patient Time attestation: Total time spent providing and/or coordinating discharge services: Time spent: Greater than 30 minutes Quality: Stroke Pt Provided Written Stroke Discharge Instructions: No Exam Vital Signs Temp Pulse Resp BP Pulse Ox O2 Del Method O2 Flow Rate 97.0 F 96 19 130/75 98 Room Air 2 03/15/25 08:00 03/15/25 08:00 03/15/25 08:00 03/15/25 08:00 03/15/25 08:00 03/15/25 08:00 03/13/25 08:03 Discharge Plan Plan Patient Disposition: Home w/HOME HEALTH Patient condition on transfer: Stable Care Plan Goals: * Follow-up with PCP within 1-2 weeks of discharge. * Follow-up with your GI doctor, Dr. Mortensen, within 1-2 weeks of discharge. * Follow-up with your neurologist, Dr. Jordan, within 1-2 weeks of discharge. * Please request for follow up phosphorus level in 1 week. * Please request sleep study within 1-2 weeks. * Continue working with physical therapy at home. * Continue taking MIRALAX and senna daily as needed for constipation. * STOP taking TRAZODONE, discussed with your PCP or neurologist before restarting this medication, and if you still have trouble sleeping. * Continue taking METHADONE 10 mg BID. * Continue taking PREGABALIN (LYRICA) twice daily instead of 3 times a day, which has a tendency to make you drowsy and fatigued (DOSE CHANGE) * Continue taking PROZAC 20 mg daily * Continue taking medications as prescribed below. * Return to Emergency Room if symptoms persist, worsen, or new symptoms develop. Prescriptions/Referrals Prescriptions/Med Rec: New doxycycline hyclate 100 mg capsule 100 mg PO BID Qty: 10 0RF amoxicillin-pot clavulanate 875-125 mg tablet 1 tab PO BID Qty: 10 0RF Phospha 250 Neutral 250 mg tablet 1 tab PO QDAY Qty: 2 0RF Continued metformin [Glucophage] 500 MG tablet 500 mg PO BIDAC Qty: 0 Xtandi 160 mg 160 mg PO DAILY furosemide 20 mg tablet 20 mg PO DAILY Patient Comments: TAKE 1 TABLET BY MOUTH ONCE DAILY NEEDED FOR LEG SWELLING methadone 10 mg tablet 10 mg PO BID Patient Comments: TAKE 1 TABLET BY MOUTH TWICE DAILY atorvastatin 40 mg tablet 40 mg PO .aday fluoxetine [Prozac] 20 mg capsule 20 mg PO QDAY Changed pregabalin [Lyrica] 100 mg capsule 100 mg PO BID Qty: 60 0RF Discontinued trazodone 50 mg tablet 50 mg PO BID Patient Comments: TAKE 1 TABLET BY MOUTH TWICE DAILY Referrals: Mario Hernández [Primary Care Provider] - Patient/Caregiver Discharge Instructions Other Discharge Activity Instructions:: Follow-up with PCP within 1-2 weeks of discharge. ? Follow-up with your GI doctor, Dr. Mortensen, within 1-2 weeks of discharge. ? Follow-up with your neurologist, Dr. Jordan, within 1-2 weeks of discharge. ? Please request for follow up phosphorus level in 1 week. ? Please request sleep study within 1-2 weeks. ? Continue working with physical therapy at home. ? Continue taking MIRALAX and senna daily as needed for constipation. ? STOP taking TRAZODONE, discussed with your PCP or neurologist before restarting this medication, and if you still have trouble sleeping. ? Continue taking METHADONE 10 mg BID. ? Continue taking PREGABALIN (LYRICA) twice daily instead of 3 times a day, which has a tendency to make you drowsy and fatigued (DOSE CHANGE) ? Continue taking PROZAC 20 mg daily ? Continue taking medications as prescribed below. ? Return to Emergency Room if symptoms persist, worsen, or new symptoms develop. Education Materials: Small Bowel Obstruction, Medicine for Pain, Managing Chronic Pain: Medicines, How the Colon Works, Obstruction Intestinal Print Language: Niuean Stand Alone Forms: [facility] Award Info., Patient Portal Info Letter Discharge Order Discharge Orders: Discharge (Routine); Ordered 03/15/25 Ordered By: Natalia Romano Quality Discharge Quality Measures VTE prophylaxis Attestestation Attestation I attest that I was physically present for the evaluation, physical examination, lab and imaging review of the patient with the residents. I discussed the case with the residents and agree with the findings and plans of care as documented above. Robert Lerma MD
--- NOTE | 2025-03-15 15:33 | PC.PT ---
Patient is safe to ambulate to the bathroom and in the room with no AD and 1 staff assist. RN made aware.
--- NOTE | 2025-03-15 18:33 | PC.CC ---
HH referral sent out, [facility] accepted and booked. SOC 03/18/2025
--- NOTE | 2025-03-15 23:58 | PD.VPROG1 ---
Telemedicine visit statement This visit was conducted with the use of phone was obtained on 03/15/25. Documentation for date of: 03/15/25 Subjective Subjective Interval history: Patient was in medsurg, no new symptoms, his oveall mental status has improved. Virtual exam Vital Signs Temp Pulse Resp BP Pulse Ox O2 Del Method O2 Flow Rate 97.0 F 60 19 140/71 H 96 Room Air 2 03/15/25 12:00 03/15/25 12:00 03/15/25 12:00 03/15/25 12:00 03/15/25 12:00 03/15/25 12:00 03/13/25 08:03 Objective Labs 03/15/25 05:16 03/15/25 05:16 Labs: Laboratory Results - last 24 hr 03/15/25 05:16 WBC 3.8 RBC 3.87 L Hgb 12.3 L Hct 35.9 L MCV 93 MCH 31.8 MCHC 34.3 RDW Std Deviation 51.3 H Plt Count 233 D Neut % (Auto) 78 Lymph % (Auto) 8 L [place] % (Auto) 11 Eos % (Auto) 2 Baso % (Auto) 0 Neut # (Auto) 2.9 Lymph # (Auto) 0.3 L [place] # (Auto) 0.4 Eos # (Auto) 0.1 Baso # (Auto) 0.0 Immature Gran # (Auto) 0.02 H Absolute Nucleated RBC 0.00 Immature Gran % 1 H Nucleated RBC % 0 Sodium 140 Potassium 3.6 Chloride 108 H Carbon Dioxide 24.5 Anion Gap 8 BUN 22 Creatinine 0.9 Estim Creat Clear Calc 110.8 eGFR > 60 BUN/Creatinine Ratio 24 H Glucose 112 H Calculated Osmolality 283 Calcium 8.2 L Corrected Calcium 8.5 Phosphorus 1.2 L Magnesium 2.2 Total Bilirubin 0.6 AST 23 ALT 19 Alkaline Phosphatase 90 Total Protein 5.5 L Albumin 3.6 Globulin 1.9 L Albumin/Globulin Ratio 1.9 ABG Interpretation ABG results: 03/13/25 15:07 ABG pH 7.47 H ABG pCO2 36 ABG pO2 67 L ABG HCO3 26 ABG O2 Saturation 92 ABG Base Excess 3 Assessment & Plan Assessment #AMS: resolved #Hypoxia: resolved with treatment of pneumonia Workup: CT head w/o: Negative for acute hemorrhage, mass effect or midline shift UA negative for UTI, ammonia WNL, syphilis non-reactive, TSH WNL Left basilar pneumonia on CXR Plan: - Supplemental O2 - Abx management per primary team - Can consider sleep study in outpatient setting - stable for D/C home #Pneumonia (likely), HAP vs CAP Reports cough productive of light green sputum and fever 101F, now afebrile, found hypoxemic by EMS with sats in 88%. CXR showed Lt basal PNA. CTA chest: Negative renal pulmonary artery emboli. Heavy coronary artery calcification. Noncalcified pulmonary nodules, T3 osteoblastic metastasis Plan - Management per primary team - Augmentin and doxycycline 100 mg bid #Hyperlipidemia Triglycerides 111, cholesterol low 75, LDL 31, HDL low 22 - Continue atorvastatin #Hx of metastatic prostate cancer Hx of prostate and bladder resection s/p urostomy bag Patient on hormone suppression therapy with Lupron and Xtandi continue Methadone, Lyrica 100 mg bid #Bradycardia s/p pacemaker #Hx of TIA #Depression: Resume Prozac, Hold Trazadone #Lumabr degenerative disc disease Spine MRI 03/12/25: Mild diffuse thoracic degenerative disc disease. Small thoracic disc bulges. Abnormal signal replacing the T3 vertebral body, Advanced degenerative disc disease L2-L3, Moderate degenerative disc disease L3-L4, L5-S1 4 mm central lumbar disc bulge extending to the left foramen with mild, left L5 ganglionic compression Chronic sensory deficit in LUE and chronic weakness in LLE Continue with pain management
== END 2025-03-15 15:57 | disposition home health service (06) | DRG 194 ==
LOC: SERX 03-13 09:44 → SERHOLD 03-13 12:31 → S2SX 03-13 16:28 → S3SX 03-14 16:47
PROVIDERS: Emergency Medicine; Admitting Provider Student in an Organized Health Care Education/Training Program; Emergency Provider Emergency Medicine; PCP Internal Medicine; Visit Provider Student in an Organized Health Care Education/Training Program
DX: J18.9 Pneumonia, unspecified organism (principal); K56.609 Unspecified intestinal obstruction, unspecified as to partial versus complete obstruction; E78.5 Hyperlipidemia, unspecified; I50.9 Heart failure, unspecified; Z79.84 Long term (current) use of oral hypoglycemic drugs; E11.9 Type 2 diabetes mellitus without complications; Z79.891 Long term (current) use of opiate analgesic; C61 Malignant neoplasm of prostate; Z86.73 Personal history of transient ischemic attack (TIA), and cerebral infarction without residual deficits; F32.A Depression, unspecified; E86.0 Dehydration; G89.29 Other chronic pain; I25.10 Atherosclerotic heart disease of native coronary artery without angina pectoris; E20.9 Hypoparathyroidism, unspecified; M51.34 Other intervertebral disc degeneration, thoracic region; M51.369 Other intervertebral disc degeneration, lumbar region without mention of lumbar back pain or lower extremity pain; Z95.0 Presence of cardiac pacemaker; Z79.899 Other long term (current) drug therapy; Z85.46 Personal history of malignant neoplasm of prostate; Z89.029 Acquired absence of unspecified finger(s); Z96.649 Presence of unspecified artificial hip joint; Z96.652 Presence of left artificial knee joint; R09.02 Hypoxemia; R00.1 Bradycardia, unspecified
CPT/HCPCS: 36415; 36600; 70450; 71045; 71275; 74018; 74176; 74250; 80053; 80061; 81001; 82140; 82306; 82607; 82746; 82803; 83036; 83605; 83735; 83880; 83970; 84100; 84145; 84443; 84484; 85025; 85379; 85610; 86780; 87040; 87081; 87086; 87205; 87400; 87634; 87811; 93005; 93225; 93306; 97162; 99285; A4649; J0696; J1650; J2270; J2405; J3490; J7030; J7999; Q9963; Q9967; A9270

== ENCOUNTER → 2025-03-12 | Outpatient (CLI) | payer MEDICARE, BC, SELFPAY ==
[2025-03-12] VITALS (11 sets, daily range): BP systolic 95–133; BP diastolic 46–82; PULSE 100; O2SAT 90–94
--- NOTE | 2025-03-12 13:30 | XR_ITS ---
Examination: MRI thoracic spine without contrast. Date and time of exam: March 12, 2025 1410 hours Comparison July 30, 2014 INDICATIONS: Back pain beginning one year ago Technique: Multiple sagittal and axial images of the thoracic spine have been obtained. T1 weighted localizer, sagittal T2 weighted images, TR 30-50, TE 148, T1 weighted sagittal images, TR 650, TE 14, T2-weighted transverse images, TR 6770, TE 142 Findings: Adequate alignment thoracic vertebral bodies Again noted abnormal signal replacing the T3 vertebral body Diffuse thoracic disc desiccation 3 mm T10-T11 disc bulge but no impingement upon the thoracic cord T7-T8 2 mm thoracic disc bulge but no significant impingement upon the thoracic cord Impression: Mild diffuse thoracic degenerative disc disease Small thoracic disc bulges as above Again noted abnormal signal replacing the T3 vertebral body, no postcontrast thoracic spine images are available
--- NOTE | 2025-03-12 14:00 | XR_ITS ---
Examination: MRI lumbar spine without contrast Date and time of exam: March 12, 2025 1410 hours INDICATIONS: Low back pain one year radiating to the right leg Technique: Multiple MRI axial and sagittal sections lumbar spine. Sagittal T2-weighted images, TR 3500, TE 118 T1 weighted transverse sections, TR 688 T8.5, T2-weighted sagittal sections T1 weighted sagittal sections TR 621, TE 30 T2 axial sections, TR 4, 190, TE 84. Findings: Adequate alignment lumbar vertebral bodies Advanced disc narrowing L2-L3 moderate disc narrowing L3-L4 Diffuse lumbar disc desiccation L5-S1 4 mm central lumbar disc bulge extending to the left foramen with mild left L5 ganglionic compression L4-L5 no disc protrusion L3-L4 small foraminal disc bulges but no ganglionic compression L2-L3 2 mm central lumbar disc bulge L1-L2 no disc protrusion IMPRESSION: Advanced degenerative disc disease L2-L3 Moderate degenerative disc disease L3-L4 L5-S1 4 mm central lumbar disc bulge extending to the left foramen with mild left L5 ganglionic compression
--- NOTE | 2025-03-12 14:28 | PC.NURSE ---
1428 patient scheduled for MRI T spine and L spine and has pacemaker, will monitor patient in MRI
--- NOTE | 2025-03-12 15:13 | PC.NURSE ---
patient tolerated MRI procedure well, no abnormal arrhythmia noted HR remained 100 throughout procedure
== END | disposition home or self-care (01) ==
PROVIDERS: PCP Nurse Practitioner Family; Referring Provider Orthopaedic Surgery; Visit Provider Orthopaedic Surgery
DX: M51.34 Other intervertebral disc degeneration, thoracic region (principal); M51.360 Other intervertebral disc degeneration, lumbar region with discogenic back pain only; M51.370 Other intervertebral disc degeneration, lumbosacral region with discogenic back pain only; G95.20 Unspecified cord compression
CPT/HCPCS: 72146; 72148

== ENCOUNTER → 2025-03-26 | Outpatient (BNVA) | payer MEDICARE, BC, SELFPAY | END | disposition home or self-care (01) | PROVIDERS: PCP Family Medicine; Referring Provider Family Medicine; Visit Provider Urology | DX: C61 Malignant neoplasm of prostate (principal); K56.609 Unspecified intestinal obstruction, unspecified as to partial versus complete obstruction; E66.2 Morbid (severe) obesity with alveolar hypoventilation; Z68.37 Body mass index [BMI] 37.0-37.9, adult; N20.0 Calculus of kidney; E11.9 Type 2 diabetes mellitus without complications; I25.10 Atherosclerotic heart disease of native coronary artery without angina pectoris; Z95.5 Presence of coronary angioplasty implant and graft; Z86.73 Personal history of transient ischemic attack (TIA), and cerebral infarction without residual deficits; E78.00 Pure hypercholesterolemia, unspecified; Z95.0 Presence of cardiac pacemaker | CPT/HCPCS: 99212; G0463 ==

== ENCOUNTER → 2025-04-10 | Outpatient (CLI) | payer MEDICARE, BC, SELFPAY ==
--- NOTE | 2025-04-10 12:57 | XR_ITS ---
Examination: Shoulder,right, 3 views Technique: Shoulder AP internal rotation, AP external rotation, Y view shoulder, 3 views Exam date and time :April 10, 2025 1318 hours INDICATIONS: Right shoulder pain 2 weeks. FINDINGS: Moderate osteoarthritis right glenohumeral joint No fracture or shoulder dislocation Minimal right shoulder calcific tendinitis IMPRESSION: Moderate osteoarthritis right glenohumeral joint Minimal right shoulder calcific tendinitis No osseous metastatic lesion
--- NOTE | 2025-04-10 12:57 | XR_ITS ---
Examination:Right hip AP, lateral, AP pelvis 3 views Technique: Hip AP lateral, AP pelvis, 3 views Exam date and time:April 10, 2025 1318 hours INDICATIONS: History hip replacements, diagnosis malignant neoplasm bone FINDINGS: Bilateral total hip arthroplasties. Satisfactory alignment Significant ossification in the soft tissue lateral to the right hip Bones of the pelvis intact IMPRESSION: Bilateral total hip arthroplasties with satisfactory alignment.
--- NOTE | 2025-04-10 12:57 | XR_ITS ---
Examination: Right femur 2 views Technique one AP lateral right femur 2 views Date and time: April 10, 2025 1318 hours INDICATIONS: Right femur pain, diagnosis malignant neoplasm bone. FINDINGS: Total right hip arthroplasty. Satisfactory alignment. Extensive dystrophic ossification in the soft tissue lateral to the right hip Femoral shaft intact IMPRESSION: Total right hip arthroplasty with satisfactory alignment No osteolytic or osteoblastic femur lesions noted
== END | disposition home or self-care (01) ==
LOC: CDIM 12:49
PROVIDERS: PCP Internal Medicine; Referring Provider Radiology Therapeutic Radiology; Visit Provider Radiology Therapeutic Radiology
DX: M75.31 Calcific tendinitis of right shoulder (principal); M25.551 Pain in right hip; M19.011 Primary osteoarthritis, right shoulder; Z96.643 Presence of artificial hip joint, bilateral; C61 Malignant neoplasm of prostate; C79.51 Secondary malignant neoplasm of bone
CPT/HCPCS: 73030; 73502; 73552

== ENCOUNTER → 2025-04-19 | Outpatient (CLI) | payer MEDICARE, BC, SELFPAY ==
[2025-04-19 16:29] LABS: Basophils # (Auto) 0.0 Thou/mm3 (0.0-0.2); Basophils % (Auto) 1 % (0-2.5); Eosinophils # (Auto) 0.1 Thou/mm3 (0.0-0.5); Eosinophils % (Auto) 1 % (0-10); Hematocrit 39.2 % (41.0-53.0); Hemoglobin 13.4 g/dL (13.5-16.0); Immature Granulocytes Auto 0.03 Thou/mm3 (0.00-0.00); Lymphocytes # (Auto) 0.5 Thou/mm3 (1.0-4.8); Lymphocytes % (Auto) 6 % (10-50); Mean Corpuscular HGB Conc 34.2 g/dl (31.0-37.0); Mean Corpuscular Hemoglobin 32.5 pg (25.0-35.0); Mean Corpuscular Volume 95 fL (80-100); Monocytes # (Auto) 0.8 Thou/mm3 (0.0-0.8); Monocytes % (Auto) 10 % (0-12); Neutrophils # (Auto) 6.6 Thou/mm3 (1.8-7.7); Neutrophils % (Auto) 81 % (37-80); Nucleated Red Blood Cell # 0.00 Thou/mm3 (0.00-0.00); Nucleated Red Blood Cell % 0 /100 WBC (0); Platelet Count 243 Thou/mm3 (140-440); RDW Standard Deviation 52.3 fL (35.1-43.9); Red Blood Count 4.12 Miln/mm3 (4.50-5.90); White Blood Count 8.1 Thou/mm3 (3.8-10.6)
[2025-04-19 16:35] LABS: Prostate Specific Antigen 1.03 ng/mL (0-4.00)
[2025-04-19 16:44] LABS: Alanine Aminotransferase 9 U/L (10-49); Albumin, Serum 4.4 gm/dL (3.4-4.8); Albumin/Globulin Ratio 2.0 (1.2-2.2); Alkaline Phosphatase 118 U/L (46-116); Anion Gap 10 (7-16); Aspartate Amino Transferase 15 U/L (0-34); BUN/Creatinine Ratio 16 Ratio (12-20); Bilirubin,Total 0.8 mg/dL (0.3-1.2); Blood Urea Nitrogen 16 mg/dL (9-23); Calcium 9.3 mg/dL (8.3-10.6); Calcium (Corrected) 9.3 mg/dL (8.5-10.1); Carbon Dioxide 25.1 mMol/L (20.0-31.0); Chloride 102 mMol/L (98-107); Creatinine (Component) 1.0 mg/dL (0.6-1.3); Globulin 2.2 gm/dL (2.3-3.5); Glucose 120 mg/dL (74-106); Osmolality,Calculated 276 (275-295); Potassium 4.3 mMol/L (3.4-5.1); Sodium 137 mMol/L (136-145); Total Protein 6.6 gm/dL (5.7-8.2); eGFR > 60 See Note
== END | disposition home or self-care (01) ==
LOC: SCTO 14:48
PROVIDERS: PCP Internal Medicine; Referring Provider Internal Medicine Hematology & Oncology; Visit Provider Internal Medicine Hematology & Oncology
DX: C61 Malignant neoplasm of prostate (principal); C79.51 Secondary malignant neoplasm of bone
CPT/HCPCS: 36415; 80053; 84153; 85025

== ENCOUNTER → 2025-04-22 | Outpatient (CLI) | payer MEDICARE, BC, SELFPAY ==
--- NOTE | 2025-04-22 | XR_ITS ---
Examination: Temporomandibular joints 5 views TECHNIQUE: [place] lateral, right and left sagittal oblique open and closed mouth 5 views Date and time: April 22, 2025 1303 hours INDICATIONS: Bilateral jaw pain beginning 3 weeks ago. FINDINGS: Bilateral moderate narrowing temporomandibular joints Adequate anterior translation both mandibular condyles in the open-mouth position IMPRESSION: Bilateral moderate narrowing temporomandibular joints No fracture
== END | disposition home or self-care (01) ==
PROVIDERS: PCP Internal Medicine; Referring Provider Otolaryngology Otolaryngology/Facial Plastic Surgery; Visit Provider Otolaryngology Otolaryngology/Facial Plastic Surgery
DX: M26.69 Other specified disorders of temporomandibular joint (principal)
CPT/HCPCS: 70330

== ENCOUNTER 2025-05-08 08:09 | Outpatient (CLI) | payer MEDICARE, BC, SELFPAY ==
[2025-05-06 15:26] VITALS: BMI 36.9
[2025-05-07 14:42] LABS: Basophils # (Auto) 0.0 Thou/mm3 (0.0-0.2); Basophils % (Auto) 1 % (0-2.5); Eosinophils # (Auto) 0.1 Thou/mm3 (0.0-0.5); Eosinophils % (Auto) 3 % (0-10); Hematocrit 36.8 % (41.0-53.0); Hemoglobin 12.4 g/dL (13.5-16.0); Immature Granulocytes Auto 0.02 Thou/mm3 (0.00-0.00); Lymphocytes # (Auto) 0.9 Thou/mm3 (1.0-4.8); Lymphocytes % (Auto) 16 % (10-50); Mean Corpuscular HGB Conc 33.7 g/dl (31.0-37.0); Mean Corpuscular Hemoglobin 32.2 pg (25.0-35.0); Mean Corpuscular Volume 96 fL (80-100); Monocytes # (Auto) 0.6 Thou/mm3 (0.0-0.8); Monocytes % (Auto) 11 % (0-12); Neutrophils # (Auto) 3.9 Thou/mm3 (1.8-7.7); Neutrophils % (Auto) 70 % (37-80); Nucleated Red Blood Cell # 0.00 Thou/mm3 (0.00-0.00); Nucleated Red Blood Cell % 0 /100 WBC (0); Platelet Count 253 Thou/mm3 (140-440); RDW Standard Deviation 51.6 fL (35.1-43.9); Red Blood Count 3.85 Miln/mm3 (4.50-5.90); White Blood Count 5.5 Thou/mm3 (3.8-10.6)
[2025-05-07 14:51] LABS: Blood Urea Nitrogen 19 mg/dL (9-23); Creatinine (Component) 0.9 mg/dL (0.6-1.3); Estimated Creatinine Clearance 109.7 mL/min (>60); eGFR > 60 See Note
[2025-05-07 14:53] LABS: INR 1.1 (0.9-1.3); Partial Thromboplastin Time 26.9 Seconds (22.0-36.0); Prothrombin Time 11.6 Seconds (9.0-12.2)
[2025-05-08] VITALS (14 sets, daily range): BP systolic 109–146; BP diastolic 58–76; PULSE 60–71; RESP 15–20; TEMP 36.3; O2SAT 94–99
--- NOTE | 2025-05-08 09:00 | XR_ITS ---
Exam: Fluoroscopic and ultrasound-guided right IJ port placement. Date: 05/08/2025, 8:41 AM 05/06/2025, 8:44 AM Indication: Metastatic disease. Fluoroscopy time 2.3 minutes Dose: 23.28 mGy Technique: After a discussion of risks and benefits informed consent was obtained from the patient. Patient was brought to the angiography suite and placed supine on the exam table. Preliminary ultrasound evaluation showed the right IJ to be patent. The skin overlying the right neck and upper chest was cleaned and draped in normal sterile surgical fashion. 20 cc's of 1% lidocaine was used for local anesthesia. Conscious sedation was begun with direct nursing supervision. Using ultrasound guidance access to the IJ was obtained with a micropuncture needle. An 0.018 wire was advanced through the needle into the SVC and the needle was withdrawn. A 5 [place] micropuncture change sheath was advanced over the wire, and the wire removed. The sheath was capped. A 4 cm incision was made over right chest. Small pouch was created with a combination of sharp and blunt dissection. The port and catheter tubing were attached to the tunneling device and pulled underneath the skin and exiting at the IJ access site. Right IJ 5 inch sheath was replaced with a 7 [place] peel-away sheath. Catheter was advanced through the peel-away sheath and peel-away sheath was removed. Distal catheter tip was appropriately positioned at the cavoatrial junction. The port pocket was closed with deep interrupted sutures using 2-0 Vicryl and superficial running sutures utilized 3-0 Vicryl. IJ access site was closed with 3-0 Vicryl and Dermabond glue Port flushed and aspirated easily and is ready for use. Impression: Successful placement of right IJ port as above with distal tip at the caval atrial junction Catheter is ready for use.
[2025-05-08] MEDS: ceFAZolin/D5W 1 GM IVPB 1 GM/50 ML BAG IV (09:09)
[2025-05-08] MEDS: MIDAZOLAM INJ 1 MG/ML VIAL 2 ML IVP (09:24)
[2025-05-08] MEDS: fentaNYL CIT INJ 50 mCg/ML AMP 2ML 100 MCG IVP (09:24)
[2025-05-08] MEDS: LIDOCAINE INJ PF 1% 30 ML VIAL 20 ML INFL (09:31)
[2025-05-08] MEDS: HEPARIN SOD LOCK SYR 100 UNIT/ML 500 UNIT STFIELD (09:31)
[2025-05-08] MEDS: LIDOCAINE 1% W/EPI 1:100K 20 ML VIAL 10 ML INFL (09:31)
--- NOTE | 2025-05-08 10:09 | PC.NURSE ---
1009 patient is awake, alert, breating unlabored, s/p port placement under IV sedation, dressing to right chest dry with no bleeding, report given to Ge CASTILLO
--- NOTE | 2025-05-08 10:46 | PC.NURSE ---
1009 patient is awake, alert, breating unlabored, s/pp
== END 2025-05-08 10:54 | disposition home or self-care (01) ==
PROVIDERS: Radiology Diagnostic Radiology; PCP Internal Medicine; Referring Provider Internal Medicine Hematology & Oncology; Visit Provider Internal Medicine Hematology & Oncology
DX: C61 Malignant neoplasm of prostate (principal); C79.51 Secondary malignant neoplasm of bone
CPT/HCPCS: 36558; 36415; 76937; 77001; 82565; 84520; 85025; 85610; 85730; 99152; 99153; C1769; C1788; C1894; J0689; J1642; J2250; J3010; J3490; J7050

== ENCOUNTER 2025-05-08 11:00 | Outpatient (RCR) | payer MEDICARE, BC, SELFPAY ==
--- NOTE | 2025-04-17 18:45 | CTCSNOTE_ITS ---
[facility] [address] [place], [place] [address] CT Simulation Note Date: 04/17/2025 MR# [id number] Name: TAWANDA RUBIN : 1955 (A) DIAGNOSIS: C61 Malignant neoplasm of prostate (B) Patient was placed in supine position and used vaklok for immobilization purposes. (C) CT slices included pelvis (D) VMAT Will be needed for maximum sparing of adjacent normal critical structures. (E) Patient tolerated the simulation well and left the room in good condition. Electronically signed by: Claudio Saldaña MD, CHARLIER 04/17/2025 6:43 PM
== END 2025-05-12 23:59 | disposition home or self-care (01) ==
LOC: SCTC 11:00
PROVIDERS: PCP Internal Medicine; Referring Provider Internal Medicine; Visit Provider Radiology Therapeutic Radiology
DX: Z51.0 Encounter for antineoplastic radiation therapy (principal); Z51.11 Encounter for antineoplastic chemotherapy; C61 Malignant neoplasm of prostate; C79.51 Secondary malignant neoplasm of bone; Z90.79 Acquired absence of other genital organ(s); M25.551 Pain in right hip
CPT/HCPCS: 77014; 77290; 77300; 77301; 77334; 77336; 77338; 77385; 96365; 96372; 96402; J1642; J1756; J3420; J7040; J7050; J9217

== ENCOUNTER 2025-05-24 09:54 | Outpatient (RCR) | payer MEDICARE, BC, SELFPAY ==
[2025-05-20 16:12] LABS: Basophils # (Auto) 0.0 Thou/mm3 (0.0-0.2); Basophils % (Auto) 1 % (0-2.5); Eosinophils # (Auto) 0.2 Thou/mm3 (0.0-0.5); Eosinophils % (Auto) 4 % (0-10); Hematocrit 36.0 % (41.0-53.0); Hemoglobin 12.1 g/dL (13.5-16.0); Immature Granulocytes Auto 0.01 Thou/mm3 (0.00-0.00); Lymphocytes # (Auto) 0.5 Thou/mm3 (1.0-4.8); Lymphocytes % (Auto) 11 % (10-50); Mean Corpuscular HGB Conc 33.6 g/dl (31.0-37.0); Mean Corpuscular Hemoglobin 32.6 pg (25.0-35.0); Mean Corpuscular Volume 97 fL (80-100); Monocytes # (Auto) 0.5 Thou/mm3 (0.0-0.8); Monocytes % (Auto) 13 % (0-12); Neutrophils # (Auto) 3.0 Thou/mm3 (1.8-7.7); Neutrophils % (Auto) 72 % (37-80); Nucleated Red Blood Cell # 0.00 Thou/mm3 (0.00-0.00); Nucleated Red Blood Cell % 0 /100 WBC (0); Platelet Count 163 Thou/mm3 (140-440); RDW Standard Deviation 52.4 fL (35.1-43.9); Red Blood Count 3.71 Miln/mm3 (4.50-5.90); White Blood Count 4.2 Thou/mm3 (3.8-10.6)
[2025-05-20 16:37] LABS: Prostate Specific Antigen 1.29 ng/mL (0-4.00)
[2025-05-20 16:43] LABS: Anion Gap 11 (7-16); Blood Urea Nitrogen 17 mg/dL (9-23); Carbon Dioxide 25.5 mMol/L (20.0-31.0); Chloride 102 mMol/L (98-107); Creatinine (Component) 0.8 mg/dL (0.6-1.3); Potassium 4.1 mMol/L (3.4-5.1); Sodium 138 mMol/L (136-145)
[2025-05-20 16:44] LABS: Alanine Aminotransferase < 7 U/L (10-49); Albumin, Serum 4.0 gm/dL (3.4-4.8); Albumin/Globulin Ratio 2.0 (1.2-2.2); Alkaline Phosphatase 94 U/L (46-116); Aspartate Amino Transferase 17 U/L (0-34); BUN/Creatinine Ratio 21 Ratio (12-20); Bilirubin,Total 0.6 mg/dL (0.3-1.2); Calcium 9.8 mg/dL (8.3-10.6); Calcium (Corrected) 9.8 mg/dL (8.5-10.1); Globulin 2.0 gm/dL (2.3-3.5); Glucose 78 mg/dL (74-106); Osmolality,Calculated 276 (275-295); Total Protein 6.0 gm/dL (5.7-8.2); eGFR > 60 See Note
--- NOTE | 2025-05-27 00:25 | CTCFLWUP_ITS ---
Patient: TAWANDA ANTONIO : 1955 Page 7 of 9 FOLLOW UP NOTE DATE OF SERVICE: 05/22/2025 NAME: TAWANDA ANTONIO ACCOUNT: [id number] : 1955 AGE: 69 INTERVAL HISTORY: Paco Russell, a male with prostate cancer, presented for follow-up after hospitalization for obstruction, reporting severe right thigh pain. PSMA PET scan showed increased metabolic activity in the right femoral diaphysis concerning for possible bone metastasis, with no other evidence of prostate cancer. Patient was treated with Lupron injection, continuing Xtandi, and radiation . patient since then have seen a change in his pain consistence . pain is not better still Subjective: Objective: Laboratory, Imaging, and Diagnostic Test Results - PSMA PET scan: - Focal increased metabolic activity in the right femoral diaphysis - No evidence of disease in the neck, chest, abdomen, pelvis - Negative for prostate cancer except for the thigh finding - MRI of heart: Normal - T3 imaging (unspecified modality): Shows arthritis, negative on PET scan for prostate cancer Review of Systems Musculoskeletal: Positive for back pain, hip pain, and thigh pain. Objective: Physical Examination Musculoskeletal: Patient's body posture suggests possible spine issues. Sits in a way that affects the spine. Laboratory, Imaging, and Diagnostic Test Results - Date: 01/16/2025 - Xgeva (denosumab): 120 mg administered - MRI (date not specified): Negative for right femur lesions - Bone scan (date not specified): One lesion in thoracic vertebrae - PSA: 0.34 (date not specified) - PET scan (06/2024): Last performed - Previous results: - Xgeva (denosumab): Administered in July 2024 and September 2024 ONCOLOGY HISTORY:?[facility] Oncology Hx? 08/22/2024: patient restarted Xtandi on 08/02/2024. Patient received Xgeva on 08/01/2024. Currently on monthly Lupron injections as well. Patient started radiation to T1 T3 today. Only complaint is feeling tired. Patient reports good appetite. INTERVAL HISTORY: PET/CT done on 06/28/2024 showed osseous metastatic disease involving the entire T3 vertebral body. Patient reports his back feels ?achy? denies numbness to the legs or radiating pain. 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 HISTORY: Tawanda Antonio is a 69-year-old ENG speaking male with history of diabetes, hyperlipidemia has the following oncology history. 02/27/2019: PSA 0.6. 07/22/2020: PSA 5.76. 12/16/2020: Prostate biopsy was performed for elevated PSA of 5.6. Biopsy showed Shelbie grade 10 prostatic adenocarcinoma in multiple cores. 12/26/2020: Mr. Antonio had transurethral resection of the bladder and prostate tumor. 01/16/2021: PSA 14.11. 01/22/2021: Patient received Lupron 7.5 mg. He was also started on Casodex. 02/23/2021: Patient received 7.5 mg Lupron again. 02/16/2021: Bone scan? 03/25/2021: Patient received third dose of Lupron 7.5 mg IM. 05/04/2021: Mr. Antonio underwent robotic radical cystoscopy prostatectomy with pelvic lymph node dissection and intracorporeal ileal conduit placement. it was staged as YPT4N1 disease. PSA trend: 03/23/2021: PSA less than 0.10. 06/15/2021: PSA less than 0.10. 07/27/2021: PSA 0.11. 10/21/2021: PSA 0.85. 10/14/2021: Urogram CT? 11/19/2021: PSA 1.66. 12/11/2021: Bone scan? 12/21/2021: Mr. Antonio is started on radiation therapy to the prostate bed. 01/29/2022: PSA 9.52. 02/11/2022: Patient completed radiation therapy to the prostate bed. He received 6840 cGy radiation therapy in 38 fractions. 05/13/2022: PSA 29.17. 06/10/2022: Bone scan? 06/11/2022: PET/CT scan? 06/15/2022: PSA 26.70. 06/17/2022: CT scan of the abdomen and pelvis with IV contrast? 06/21/2022: Mr. Antonio stopped taking Xtandi 160 mg p.o. daily in addition to Lupron. 08/09/2022: PSA 0.31 09/02/2022: PSA less than 0.10. 12/31/2022: PSA less than 0.10. 06/02/2023: PSA less than 0.10 09/01/2023: PET/CT 10/24/2023: Chest x-ray 10/24/2023: PSA less than 0.10 02/03/2024: PSA 0.19 06/20/2024: PSA 1.42 06/28/2024: PET/CT-osseous metastatic disease involving the entire T3 vertebral body 11/20/2024 bone scan --Increased isotope accumulation T3 again noted MRI DIAGNOSIS: Metastatic (M1a) high-grade prostate cancer with intra-abdominal lymphadenopathy (06/17/2022). S/p prostatectomy (05/04/2021) S/p radiation therapy to the prostate bed (12/21/2021 - 02/11/2022) S/p ileostomy. Currently on monthly Lupron Was on Xtandi along with Lupron since (06/2022-09/2023). DATE OF DIAGNOSIS: 12/16/2020 STAGE/TNM: [id number] (05/05/2021) TREATMENT HISTORY: Care?Plan Start?Date Cycle Day Intent Lupron?22.5?mg?q?3?mon 06/21/2022 1 90 Palliative Lupron?7.5?mg 06/21/2022 1 30 Palliative Lupron?7.5?mg 06/26/2024 1 30 Palliative Xgeva?120?mg?q?monthly?for?3?months,?followed?by?q?3?months 07/19/2024 1 90 Palliative VENOfer?200mg?IV?wkly?for?10?weeks 02/06/2025 1 70 Palliative HISTORY OF PRESENT ILLNESS: OTHER MEDICAL HISTORY/CONDITIONS: Diabetes type 2 FAMILY HISTORY: ?Clone Family Hx? SOCIAL HISTORY: MEDICATIONS: 1. atorvastatin - 40 mg Daily 2. Citracal + D Slow Release - 600 mg-12.5 mcg (500 unit) 1 tab one tab po twice a day 3. Lasix - 20 mg 1 tab As needed 4. Lipitor - 40 mg tab Daily 5. Lupron - 5 mg/mL Monthly 6. Lyrica - 100 mg Capsule Three times a day 7. metFORMIN - 500 mg tab Daily 8. methadone - 10 mg 1 tab twice a day 9. PROzac - 20 mg 1 Capsule Daily 10. SSD - As directed 11. traZODone - 50 mg 1 tab Twice a Day 12. Xtandi - 40 mg 4 Capsule Daily?[place] Meds? Medications Last Reconciled by Angela Rodrigez MD on 05/22/2025 ALLERGIES: [id number] REVIEW OF SYSTEMS: A complete 14-point review of systems was performed and is negative except as noted in interval history. PHYSICAL EXAMINATION:?[facility]oneBlock PE? VITAL SIGNS: Temperature?96.4, B/P?128/74, Oxygen?Saturation?94% Weight?283?lbs (Change?since?05/21/25:?0?lbs) PAIN: 0 - No pain GENERAL APPEARANCE: Appears well, in no apparent distress, appropriately interactive. HEENT: Normocephalic, normal conjunctiva, normal hearing, lips without lesions, CARDIOVASCULAR: Patient has a pacemaker. PULMONARY: Normal respiratory effort, no respiratory distress or use of accessory muscles, speaking in full sentences, no tachypnea. EXTREMITIES: No cyanosis. SKIN: Normal skin appearance. NEUROLOGIC: Alert and ORIENTED x4. PSHYCHIATRIC: Appropriate affect, mood normal, behavior normal, intact thought and speech. LABORATORY DATA: I have personally reviewed and interpreted each of the patient?s relevant lab tests, abnormal findings are below: Date 05/07/25 05/20/25 ??WHITE?BLOOD?COUNT?(Thou/mm3) 5.5 4.2 ??RED?BLOOD?COUNT?(Miln/mm3) 3.85?L 3.71?L ??HEMOGLOBIN?(gm/dl) 12.4?L 12.1?L ??HEMATOCRIT?(%) 36.8?L 36.0?L ??PLATELET?COUNT?(Thou/mm3) 253 163 ??NEUTROPHILS?%,?AUTO?(%) 70 72 ??LYMPH?%,?AUTO?(%) 16 11 ??NEUTROPHILS,?AUTO?(Thou/mm3) 3.9 3.0 ??GLUCOSE,RANDOM?(mg/dL) ? 78 ??BLOOD?UREA?NITROGEN?(mg/dL) 19 17 ??CREATININE?(mg/dL) ? 0.80 ??SODIUM?(mmol/L) ? 138 ??POTASSIUM?(mmol/L) ? 4.1 ??CHLORIDE?(mmol/L) ? 102 ??CrCl?(CandG)?(ml/min) ? 121.84 ??AST/SGOT?(Unit/L) ? 17 ??ALT/SGPT?(Unit/L) ? <?7?L ??ALKALINE?PHOSPHATASE?(Unit/L) ? 94 ??BILIRUBIN,?TOTAL?(mg/dL) ? 0.6 ??PROTEIN?TOTAL?(gm/dl) ? 6.0 ??ALBUMIN,?SERUM?(gm/dl) ? 4.0 ??GLOBULIN?(gm/dl) ? 2.0?L ??ALBUMIN/GLOBULIN?RATIO ? 2.0 ??CALCIUM,?SERUM?(mg/dL) ? 9.8 ??CALCIUM?SERUM?(CORRECTED)?(mg/dL) ? 9.8 ASSESSMENT/PLAN:?Jennifer Ochoa Assessment/Plan? Paco Russell, male patient with history of prostate cancer and thoracic vertebrae disease, presenting with back and hip pain. 1. Metastatic (M1a) high-grade prostate cancer with intra-abdominal lymphadenopathy (06/17/2022). S/p prostatectomy (05/04/2021) Treated with neoadjuvant antihormonal therapy with Lupron and Casodex followed by radical prostatectomy as described above. Pathology showed YPT4N1 disease. S/p radiation therapy to the prostate bed (12/21/2021 - 02/11/2022) S/p ileostomy. Currently on monthly Lupron 7.5 mg IM Was on Xtandi along with Lupron since (06/2022-09/2023). Patient self discontinued Xtandi, reports he wanted a break. Restarted Xtandi 160 mg p.o. daily, 08/02/2024 MRI of spine showed osseous metastatic disease involving T1 and T3, no tumor impingement upon thoracic cord, 07/30/2024. Started radiation to T1 T3, (08/22/2024-), completed 10 radiation treatments, following up with Dr. Saldaña PSA 0.53, hemoglobin 12.4, 09/25/2024, PSA level is decreasing Patient taking [place] for pain, following up with Dr. Saldaña Patient recently complaining of right hip pain, history of osteoarthritis to right hip and right hip replacement. X-ray of right femur done 10/18/2024 showed extensive dysmorphic ossification lateral to the right hip joint, satisfactory alignment, total right hip arthroplasty. Last bone scan was done on 05/2024 showed uptake in T3 level. 12/03/2024 MRI is negative Continue Xtandi Continue on monthly Lupron. Continue Xgeva 120 mg subcutaneous every 3 months, started 08/01/2024. Continue Citracal p.o. 1 tablet twice a day Right thigh pain with increased activity on PSMA PET scan Assessment: Patient reports pain in the right thigh, which he describes as feeling like somebody's got 2 pairs of pliers and they're twisting. The pain is intermittent and becomes severe when touched. A recent PSMA PET scan, specifically for prostate cancer, showed increased activity in the right femoral diaphysis. This finding is concerning for possible bone metastasis, as it is visible on the PET scan and does not align with typical nerve pain presentation. Patient was seen by radiation oncologist and treated with radiation ORDERS: Order # Description [id number] MD Follow Up 3 Months [id number] Comprehensive Metabolic Panel - 12 + CBC with Auto Diff [id number] PSA [id number] MD Follow Up 3 Months + RETURN TO CLINIC: I reviewed the diagnosis, prognosis, and recommended treatment/procedure options with the patient (and/or their legal commissary representative), including the potential benefits, risks, side effects and alternative therapies. We also discussed the option of no treatment and the possibility of clinical trial participation, if applicable. All questions were addressed, and they demonstrated understanding. They provided informed consent to proceed with the proposed plan of care. BILLING AND COMPLIANCE: I reviewed external records from providers outside my specialty as summarized above. I spent a total of 50 minutes on this patient?s care on the day of their visit excluding time spent related to any billed procedures. This time includes time spent with the patient as well as time spent documenting in the medical record, reviewing patients records and tests, obtaining history, placing orders, communicating with other healthcare professionals, counseling the patient, family or caregiver, and/or care coordination for the diagnoses above. Electronically Signed by: Tani Ochoa MD T: 12:23 AM CC: Mario?Betty?Bruce,? PCP: Mario Tobias Referring: Mario Tobias This document was completed utilizing speech recognition software. Grammatical errors, random word insertions, pronoun errors, and incomplete sentences are an occasional consequence of this system due to software limitations, ambient noise, and hardware issues. Any formal questions or concerns about the content, text or information contained within the body of this dictation should be directly addressed to the provider for clarification.
== END 2025-06-11 23:59 | disposition home or self-care (01) ==
LOC: SCTC 09:54
PROVIDERS: PCP Internal Medicine; Referring Provider Internal Medicine; Visit Provider Internal Medicine Hematology & Oncology
DX: Z51.11 Encounter for antineoplastic chemotherapy (principal); C61 Malignant neoplasm of prostate; C79.51 Secondary malignant neoplasm of bone; Z92.3 Personal history of irradiation; M16.11 Unilateral primary osteoarthritis, right hip; Z90.79 Acquired absence of other genital organ(s); Z96.641 Presence of right artificial hip joint; M79.651 Pain in right thigh
CPT/HCPCS: 36591; 80053; 84153; 85025; 96402; 99212; 99213; A4216; J1642; J9217; G0463

== ENCOUNTER → 2025-05-30 | Outpatient (CLI) | payer MEDICARE, BC, SELFPAY ==
--- NOTE | 2025-05-30 | XR_ITS ---
Examination: Ultrasound soft tissue neck TECHNIQUE: Grayscale sonographic images soft tissue neck Date and time: May 30, 2025 0850 hours INDICATIONS: Onset right neck tenderness and swelling beginning 4 weeks ago. FINDINGS: No cystic or solid mass noted IMPRESSION: No cystic or solid mass noted As clinically warranted, consider CT soft tissue neck post intravenous contrast follow-up
[2025-05-30 09:45] LABS: Glucose Estimated Average 120 mg/dL (80-131); Hemoglobin A1C 5.8 % Hgb (4.8-6.0)
[2025-05-30 10:02] LABS: Cardiac Risk Estimate 2.7 RATIO (4.0-6.7); Cholesterol 126 mg/dL (132-200); HDL Cholesterol 47 mg/dL (40-60); LDL Cholesterol,Calculated 55 mg/dL (0-130); Triglycerides 120 mg/dL (30-150)
== END | disposition home or self-care (01) ==
LOC: CDIM 07:27 → COPL 08:58
PROVIDERS: PCP Nurse Practitioner Family; Referring Provider Nurse Practitioner Family; Visit Provider Radiology Diagnostic Radiology
DX: R22.1 Localized swelling, mass and lump, neck (principal); C67.9 Malignant neoplasm of bladder, unspecified; E11.9 Type 2 diabetes mellitus without complications; I25.10 Atherosclerotic heart disease of native coronary artery without angina pectoris
CPT/HCPCS: 36415; 76536; 80061; 83036

== ENCOUNTER 2025-06-07 12:45 | Day surgery (SDC) | payer MEDICARE, BC, SELFPAY ==
[2025-06-06 12:07] VITALS: BMI 34.9
[2025-06-07 13:33] VITALS: BMI 34.3
[2025-06-07] MEDS: RINGERS LACTATED 1000 ML 1,000 ML 125 ML IV (13:50)
[2025-06-07] MEDS: Vancomycin Inj 1,000 MG in SODIUM CHLORIDE 0.9% 250 ML 250 ML 150 MG IV (13:55)
[2025-06-07 14:12] VITALS: BP 111/74; PULSE 64; RESP 22; TEMP 37.1; O2SAT 91
[2025-06-07 14:22] VITALS: BP 147/80; PULSE 60; RESP 11; O2SAT 93
[2025-06-07 14:32] VITALS: BP 147/83; PULSE 60; RESP 12; O2SAT 92
[2025-06-07 14:42] VITALS: BP 144/90; PULSE 63; RESP 14; TEMP 36.3; O2SAT 96
[2025-06-07 15:30] VITALS: BP 153/80; PULSE 60; RESP 16; TEMP 36.6; O2SAT 96
== END 2025-06-07 15:45 | disposition home or self-care (01) ==
PROVIDERS: PCP Internal Medicine; Referring Provider Specialist; Visit Provider Specialist
PROC: 0DBE8ZX Excision of Large Intestine, Via Natural or Artificial Opening Endoscopic, Diagnostic (ICD-10-PCS; CPT 45380; principal; 2025-06-07 13:30)
DX: Z12.11 Encounter for screening for malignant neoplasm of colon (principal); K64.1 Second degree hemorrhoids; K57.30 Diverticulosis of large intestine without perforation or abscess without bleeding
CPT/HCPCS: G0121; 36415; 80048; A4649; J3373; J7050; J7120

== ENCOUNTER → 2025-06-25 | Outpatient (BNVA) | payer MEDICARE, BC, SELFPAY | END | disposition home or self-care (01) | PROVIDERS: PCP Family Medicine; Referring Provider Family Medicine; Visit Provider Physician Assistant | DX: C61 Malignant neoplasm of prostate (principal); C79.11 Secondary malignant neoplasm of bladder; C79.51 Secondary malignant neoplasm of bone; E66.9 Obesity, unspecified; Z68.38 Body mass index [BMI] 38.0-38.9, adult | CPT/HCPCS: 99212; G0463 ==

== ENCOUNTER → 2025-06-27 | Outpatient (CLI) | payer MEDICARE, BC, SELFPAY ==
--- NOTE | 2025-06-27 10:00 | XR_ITS ---
Examination: CT soft tissue neck without intravenous contrast. Sagittal and coronal 2-D reconstructions. Exam date and time: June 27, 2025, 10:30 a.m. INDICATIONS: Patient states right sided jaw lump 1 month CTDI:vol (mGy) 19.7 DLP: (mGycm) 583 Technique: Multiple 3.0 mm axial sections of the chest to been obtained. Bone and lung density settings are obtained. Sagittal and coronal 2-D reconstructions have been obtained. Low dose protocols were performed. One or more of the following dose reduction techniques were used; automated exposure control, adjustment of the mA and/or KV according to patient size, use of iterative reconstruction technique. Findings: Symmetrical nasopharynx oropharynx Larger right parotid gland with inflammatory change, axial image 28 Supraglottic region unremarkable The larynx appears normal Subcentimeter carotid triangle lymph nodes Symmetrical submandibular glands Thyroid lobes are not enlarged Normal epiglottis Artificial disc C5-C6 C6-C7 Partial visualization densely sclerotic T3 vertebral body IMPRESSION: Larger right parotid gland with inflammatory change, most consistent with sialoadenitis, clinical correlation advised Again noted osteoblastic metastasis to the T3 vertebral body, seen on MD CT chest March 13, 2025
== END | disposition home or self-care (01) ==
PROVIDERS: PCP Nurse Practitioner Family; Referring Provider Nurse Practitioner Family; Visit Provider Nurse Practitioner Family
DX: R22.1 Localized swelling, mass and lump, neck (principal)
CPT/HCPCS: 70490

== ENCOUNTER 2025-07-03 10:05 | Outpatient (RCR) | payer MEDICARE, BC, SELFPAY ==
[2025-07-02 09:09] LABS: Basophils # (Auto) 0.0 Thou/mm3 (0.0-0.2); Basophils % (Auto) 1 % (0-2.5); Eosinophils # (Auto) 0.1 Thou/mm3 (0.0-0.5); Eosinophils % (Auto) 3 % (0-10); Hematocrit 34.8 % (41.0-53.0); Hemoglobin 11.8 g/dL (13.5-16.0); Immature Granulocytes Auto 0.02 Thou/mm3 (0.00-0.00); Lymphocytes # (Auto) 0.5 Thou/mm3 (1.0-4.8); Lymphocytes % (Auto) 12 % (10-50); Mean Corpuscular HGB Conc 33.9 g/dl (31.0-37.0); Mean Corpuscular Hemoglobin 33.1 pg (25.0-35.0); Mean Corpuscular Volume 98 fL (80-100); Monocytes # (Auto) 0.4 Thou/mm3 (0.0-0.8); Monocytes % (Auto) 10 % (0-12); Neutrophils # (Auto) 2.7 Thou/mm3 (1.8-7.7); Neutrophils % (Auto) 74 % (37-80); Nucleated Red Blood Cell # 0.00 Thou/mm3 (0.00-0.00); Nucleated Red Blood Cell % 0 /100 WBC (0); Platelet Count 188 Thou/mm3 (140-440); RDW Standard Deviation 50.5 fL (35.1-43.9); Red Blood Count 3.57 Miln/mm3 (4.50-5.90); White Blood Count 3.7 Thou/mm3 (3.8-10.6)
[2025-07-02 09:29] LABS: Prostate Specific Antigen 2.05 ng/mL (0-4.00)
[2025-07-02 09:30] LABS: Alanine Aminotransferase 9 U/L (10-49); Albumin, Serum 4.5 gm/dL (3.4-4.8); Albumin/Globulin Ratio 2.1 (1.2-2.2); Alkaline Phosphatase 95 U/L (46-116); Anion Gap 8 (7-16); Aspartate Amino Transferase 17 U/L (0-34); BUN/Creatinine Ratio 24 Ratio (12-20); Bilirubin,Total 0.7 mg/dL (0.3-1.2); Blood Urea Nitrogen 19 mg/dL (9-23); Calcium 9.7 mg/dL (8.3-10.6); Calcium (Corrected) 9.7 mg/dL (8.5-10.1); Carbon Dioxide 26.1 mMol/L (20.0-31.0); Chloride 105 mMol/L (98-107); Creatinine (Component) 0.8 mg/dL (0.6-1.3); Globulin 2.1 gm/dL (2.3-3.5); Glucose 115 mg/dL (74-106); Osmolality,Calculated 280 (275-295); Potassium 3.8 mMol/L (3.4-5.1); Sodium 139 mMol/L (136-145); Total Protein 6.6 gm/dL (5.7-8.2); eGFR > 60 See Note
== END 2025-07-12 23:59 | disposition home or self-care (01) ==
LOC: SCTC 10:05
PROVIDERS: PCP Family Medicine; Referring Provider Family Medicine; Visit Provider Internal Medicine Hematology & Oncology
DX: Z51.11 Encounter for antineoplastic chemotherapy (principal); C61 Malignant neoplasm of prostate; C79.51 Secondary malignant neoplasm of bone; E53.8 Deficiency of other specified B group vitamins; Z90.79 Acquired absence of other genital organ(s); Z92.3 Personal history of irradiation; Z96.641 Presence of right artificial hip joint; M79.651 Pain in right thigh
CPT/HCPCS: 36591; 80053; 84153; 85025; 96372; 96402; A4216; J0897; J1642; J3420; J9217

== ENCOUNTER 2025-07-31 10:08 | Outpatient (RCR) | payer MEDICARE, BC, SELFPAY ==
[2025-07-29 09:49] LABS: Prostate Specific Antigen 2.71 ng/mL (0-4.00)
[2025-07-29 09:53] LABS: Alanine Aminotransferase 9 U/L (10-49); Albumin, Serum 4.2 gm/dL (3.4-4.8); Albumin/Globulin Ratio 2.1 (1.2-2.2); Alkaline Phosphatase 94 U/L (46-116); Anion Gap 10 (7-16); Aspartate Amino Transferase 14 U/L (0-34); BUN/Creatinine Ratio 18 Ratio (12-20); Bilirubin,Total 0.5 mg/dL (0.3-1.2); Blood Urea Nitrogen 14 mg/dL (9-23); Calcium 9.4 mg/dL (8.3-10.6); Calcium (Corrected) 9.4 mg/dL (8.5-10.1); Carbon Dioxide 27.5 mMol/L (20.0-31.0); Chloride 104 mMol/L (98-107); Creatinine (Component) 0.8 mg/dL (0.6-1.3); Globulin 2.0 gm/dL (2.3-3.5); Glucose 176 mg/dL (74-106); Osmolality,Calculated 285 (275-295); Potassium 3.7 mMol/L (3.4-5.1); Sodium 141 mMol/L (136-145); Total Protein 6.2 gm/dL (5.7-8.2); eGFR > 60 See Note
[2025-07-29 10:00] LABS: Basophils # (Auto) 0.0 Thou/mm3 (0.0-0.2); Basophils % (Auto) 1 % (0-2.5); Eosinophils # (Auto) 0.1 Thou/mm3 (0.0-0.5); Eosinophils % (Auto) 3 % (0-10); Hematocrit 34.8 % (41.0-53.0); Hemoglobin 12.0 g/dL (13.5-16.0); Immature Granulocytes Auto 0.02 Thou/mm3 (0.00-0.00); Lymphocytes # (Auto) 0.5 Thou/mm3 (1.0-4.8); Lymphocytes % (Auto) 10 % (10-50); Mean Corpuscular HGB Conc 34.5 g/dl (31.0-37.0); Mean Corpuscular Hemoglobin 33.5 pg (25.0-35.0); Mean Corpuscular Volume 97 fL (80-100); Monocytes # (Auto) 0.3 Thou/mm3 (0.0-0.8); Monocytes % (Auto) 7 % (0-12); Neutrophils # (Auto) 3.6 Thou/mm3 (1.8-7.7); Neutrophils % (Auto) 79 % (37-80); Nucleated Red Blood Cell # 0.00 Thou/mm3 (0.00-0.00); Nucleated Red Blood Cell % 0 /100 WBC (0); Platelet Count 203 Thou/mm3 (140-440); RDW Standard Deviation 48.6 fL (35.1-43.9); Red Blood Count 3.58 Miln/mm3 (4.50-5.90); White Blood Count 4.6 Thou/mm3 (3.8-10.6)
--- NOTE | 2025-07-30 14:25 | CTCFLWUP_ITS ---
Patient: TAWANDA ANTONIO : 1955 Page 2 of 2 FOLLOW UP NOTE DATE OF SERVICE: 07/30/2025 NAME: TAWANDA ANTONIO ACCOUNT: [id number] : 1955 AGE: 69 INTERVAL HISTORY: Paco Russell, a male with prostate cancer Patient had radiation to his thigh. Patient now complains of numbness and tingling in both legs. Patient has a new back pain and numbness and tingling in both legs Objective: Laboratory, Imaging, and Diagnostic Test Results - PSMA PET scan: - Focal increased metabolic activity in the right femoral diaphysis - No evidence of disease in the neck, chest, abdomen, pelvis - Negative for prostate cancer except for the thigh finding - MRI of heart: Normal - T3 imaging (unspecified modality): Shows arthritis, negative on PET scan for prostate cancer Review of Systems Musculoskeletal: Positive for back pain, hip pain, and thigh pain. Objective: Physical Examination Musculoskeletal: Patient's body posture suggests possible spine issues. Sits in a way that affects the spine. Laboratory, Imaging, and Diagnostic Test Results - Date: 01/16/2025 - Xgeva (denosumab): 120 mg administered - MRI (date not specified): Negative for right femur lesions - Bone scan (date not specified): One lesion in thoracic vertebrae - PSA: 0.34 (date not specified) - PET scan (06/2024): Last performed - Previous results: - Xgeva (denosumab): Administered in July 2024 and September 2024 ONCOLOGY HISTORY: 08/22/2024: patient restarted Xtandi on 08/02/2024. Patient received Xgeva on 08/01/2024. Currently on monthly Lupron injections as well. Patient started radiation to T1 T3 today. Only complaint is feeling tired. Patient reports good appetite. INTERVAL HISTORY: PET/CT done on 06/28/2024 showed osseous metastatic disease involving the entire T3 vertebral body. Patient reports his back feels ?achy? denies numbness to the legs or radiating pain. 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 HISTORY: Tawanda Antonio is a 69-year-old ENG speaking male with history of diabetes, hyperlipidemia has the following oncology history. 02/27/2019: PSA 0.6. 07/22/2020: PSA 5.76. 12/16/2020: Prostate biopsy was performed for elevated PSA of 5.6. Biopsy showed Shelbie grade 10 prostatic adenocarcinoma in multiple cores. 12/26/2020: Mr. Antonio had transurethral resection of the bladder and prostate tumor. 01/16/2021: PSA 14.11. 01/22/2021: Patient received Lupron 7.5 mg. He was also started on Casodex. 02/23/2021: Patient received 7.5 mg Lupron again. 02/16/2021: Bone scan? 03/25/2021: Patient received third dose of Lupron 7.5 mg IM. 05/04/2021: Mr. Antonio underwent robotic radical cystoscopy prostatectomy with pelvic lymph node dissection and intracorporeal ileal conduit placement. it was staged as YPT4N1 disease. PSA trend: 03/23/2021: PSA less than 0.10. 06/15/2021: PSA less than 0.10. 07/27/2021: PSA 0.11. 10/21/2021: PSA 0.85. 10/14/2021: Urogram CT? 11/19/2021: PSA 1.66. 12/11/2021: Bone scan? 12/21/2021: Mr. Antonio is started on radiation therapy to the prostate bed. 01/29/2022: PSA 9.52. 02/11/2022: Patient completed radiation therapy to the prostate bed. He received 6840 cGy radiation therapy in 38 fractions. 05/13/2022: PSA 29.17. 06/10/2022: Bone scan? 06/11/2022: PET/CT scan? 06/15/2022: PSA 26.70. 06/17/2022: CT scan of the abdomen and pelvis with IV contrast? 06/21/2022: Mr. Antonio stopped taking Xtandi 160 mg p.o. daily in addition to Lupron. 08/09/2022: PSA 0.31 09/02/2022: PSA less than 0.10. 12/31/2022: PSA less than 0.10. 06/02/2023: PSA less than 0.10 09/01/2023: PET/CT 10/24/2023: Chest x-ray 10/24/2023: PSA less than 0.10 02/03/2024: PSA 0.19 06/20/2024: PSA 1.42 06/28/2024: PET/CT-osseous metastatic disease involving the entire T3 vertebral body 11/20/2024 bone scan --Increased isotope accumulation T3 again noted MRI DIAGNOSIS: Metastatic (M1a) high-grade prostate cancer with intra-abdominal lymphadenopathy (06/17/2022). S/p prostatectomy (05/04/2021) S/p radiation therapy to the prostate bed (12/21/2021 - 02/11/2022) S/p ileostomy. Currently on monthly Lupron Was on Xtandi along with Lupron since (06/2022-09/2023). DATE OF DIAGNOSIS: 12/16/2020 STAGE/TNM: [id number] (05/05/2021) TREATMENT HISTORY: Care?Plan Start?Date Cycle Day Intent Lupron?22.5?mg?q?3?mon 06/21/2022 1 90 Palliative Lupron?7.5?mg 06/21/2022 1 30 Palliative Lupron?7.5?mg 06/26/2024 1 30 Palliative Xgeva?120?mg?q?monthly?for?3?months,?followed?by?q?3?months 07/19/2024 1 90 Palliative VENOfer?200mg?IV?wkly?for?10?weeks 02/06/2025 1 70 Palliative HISTORY OF PRESENT ILLNESS: OTHER MEDICAL HISTORY/CONDITIONS: Diabetes type 2 FAMILY HISTORY: SOCIAL HISTORY: MEDICATIONS: 1. atorvastatin - 40 mg Daily 2. Citracal + D Slow Release - 600 mg-12.5 mcg (500 unit) 1 tab one tab po twice a day 3. Lasix - 20 mg 1 tab As needed 4. Lipitor - 40 mg tab Daily 5. Lupron - 5 mg/mL Monthly 6. Lyrica - 100 mg Capsule Three times a day 7. metFORMIN - 500 mg tab Daily 8. methadone - 10 mg 1 tab twice a day 9. PROzac - 20 mg 1 Capsule Daily 10. SSD - As directed 11. traZODone - 50 mg 1 tab Twice a Day 12. Xtandi - 40 mg 4 Capsule Daily Medications Last Reconciled by Angela Rodrigez MD on 07/30/2025 ALLERGIES: [id number] REVIEW OF SYSTEMS: A complete 14-point review of systems was performed and is negative except as noted in interval history. PHYSICAL EXAMINATION: VITAL SIGNS: Temperature?96.3, B/P?122/67, Oxygen?Saturation?92% Weight?295?lbs (Change?since?07/29/25:?-1.6?lbs) PAIN: 0 - No pain ECOG Performance Status: 2 - Symptomatic; ambulatory; capable of self-care; >50% of waking hrs. not in bed GENERAL APPEARANCE: Appears well, in no apparent distress, appropriately interactive. HEENT: Normocephalic, normal conjunctiva, normal hearing, lips without lesions, CARDIOVASCULAR: Patient has a pacemaker. PULMONARY: Normal respiratory effort, no respiratory distress or use of accessory muscles, speaking in full sentences, no tachypnea. EXTREMITIES: No cyanosis. SKIN: Normal skin appearance. NEUROLOGIC: Alert and ORIENTED x4. PSHYCHIATRIC: Appropriate affect, mood normal, behavior normal, intact thought and speech. LABORATORY DATA: I have personally reviewed and interpreted each of the patient?s relevant lab tests, abnormal findings are below: Date 07/02/25 07/29/25 ??WHITE?BLOOD?COUNT?(Thou/mm3) 3.7?L 4.6 ??RED?BLOOD?COUNT?(Miln/mm3) 3.57?L 3.58?L ??HEMOGLOBIN?(gm/dl) 11.8?L 12.0?L ??HEMATOCRIT?(%) 34.8?L 34.8?L ??PLATELET?COUNT?(Thou/mm3) 188 203 ??NEUTROPHILS?%,?AUTO?(%) 74 79 ??LYMPH?%,?AUTO?(%) 12 10 ??NEUTROPHILS,?AUTO?(Thou/mm3) 2.7 3.6 ??GLUCOSE,RANDOM?(mg/dL) 115?H 176?H ??BLOOD?UREA?NITROGEN?(mg/dL) 19 14 ??CREATININE?(mg/dL) 0.80 0.80 ??SODIUM?(mmol/L) 139 141 ??POTASSIUM?(mmol/L) 3.8 3.7 ??CHLORIDE?(mmol/L) 105 104 ??CrCl?(CandG)?(ml/min) 123.97 124.79 ??AST/SGOT?(Unit/L) 17 14 ??ALT/SGPT?(Unit/L) 9?L 9?L ??ALKALINE?PHOSPHATASE?(Unit/L) 95 94 ??BILIRUBIN,?TOTAL?(mg/dL) 0.7 0.5 ??PROTEIN?TOTAL?(gm/dl) 6.6 6.2 ??ALBUMIN,?SERUM?(gm/dl) 4.5 4.2 ??GLOBULIN?(gm/dl) 2.1?L 2.0?L ??ALBUMIN/GLOBULIN?RATIO 2.1 2.1 ??CALCIUM,?SERUM?(mg/dL) 9.7 9.4 ??CALCIUM?SERUM?(CORRECTED)?(mg/dL) 9.7 9.4 ASSESSMENT/PLAN: Paco Russell, male patient with history of prostate cancer and thoracic vertebrae disease, presenting with back and hip pain. 1. Metastatic (M1a) high-grade prostate cancer with intra-abdominal lymphadenopathy (06/17/2022). S/p prostatectomy (05/04/2021) Treated with neoadjuvant antihormonal therapy with Lupron and Casodex followed by radical prostatectomy as described above. Pathology showed YPT4N1 disease. S/p radiation therapy to the prostate bed (12/21/2021 - 02/11/2022) S/p ileostomy. Currently on monthly Lupron 7.5 mg IM Was on Xtandi along with Lupron since (06/2022-09/2023). Patient self discontinued Xtandi, reports he wanted a break. Restarted Xtandi 160 mg p.o. daily, 08/02/2024 MRI of spine showed osseous metastatic disease involving T1 and T3, no tumor impingement upon thoracic cord, 07/30/2024. Started radiation to T1 T3, (08/22/2024-), completed 10 radiation treatments, following up with Dr. Saldaña PSA 0.53, hemoglobin 12.4, 09/25/2024, PSA level is decreasing Patient taking [place]worth for pain, following up with Dr. Saldaña Patient recently complaining of right hip pain, history of osteoarthritis to right hip and right hip replacement. X-ray of right femur done 10/18/2024 showed extensive dysmorphic ossification lateral to the right hip joint, satisfactory alignment, total right hip arthroplasty. Last bone scan was done on 05/2024 showed uptake in T3 level. 12/03/2024 MRI is negative Continue Xtandi Continue on monthly Lupron. Continue Xgeva 120 mg subcutaneous every 3 months, started 08/01/2024. Continue Citracal p.o. 1 tablet twice a day PSA rising doubling time less than 1 month Will get PSMA scan to see metastatic load Right thigh pain with increased activity on PSMA PET scan Right thigh pain is resolved Will get another PET PSMA scan to see if patient has any persistent lesions Patient is now complaining more pain in his back and radiating pain to both the legs Also will send for Pluvicto evaluation to tertiary center PSA also rising ORDERS: Order # Description [id number] PSA + Comprehensive Metabolic Panel - 12 + CBC with Auto Diff + [id number] Follow Up 2 Months [id number] Testosterone; Total RETURN TO CLINIC: I reviewed the diagnosis, prognosis, and recommended treatment/procedure options with the patient (and/or their legal commissary representative), including the potential benefits, risks, side effects and alternative therapies. We also discussed the option of no treatment and the possibility of clinical trial participation, if applicable. All questions were addressed, and they demonstrated understanding. They provided informed consent to proceed with the proposed plan of care. BILLING AND COMPLIANCE: I reviewed external records from providers outside my specialty as summarized above. I spent a total of 50 minutes on this patient?s care on the day of their visit excluding time spent related to any billed procedures. This time includes time spent with the patient as well as time spent documenting in the medical record, reviewing patients records and tests, obtaining history, placing orders, communicating with other healthcare professionals, counseling the patient, family or caregiver, and/or care coordination for the diagnoses above. Electronically Signed by: Tani Ochoa MD T: 2:23 PM CC: Mario?Betty?Bruce,? PCP: Ashley Foley Referring: Ashley Foley This document was completed utilizing speech recognition software. Grammatical errors, random word insertions, pronoun errors, and incomplete sentences are an occasional consequence of this system due to software limitations, ambient noise, and hardware issues. Any formal questions or concerns about the content, text or information contained within the body of this dictation should be directly addressed to the provider for clarification.
== END 2025-08-11 23:59 | disposition home or self-care (01) ==
LOC: SCTC 10:08
PROVIDERS: PCP Family Medicine; Referring Provider Family Medicine; Visit Provider Internal Medicine Hematology & Oncology
DX: Z51.11 Encounter for antineoplastic chemotherapy (principal); C61 Malignant neoplasm of prostate; C79.51 Secondary malignant neoplasm of bone; R20.0 Anesthesia of skin; R59.0 Localized enlarged lymph nodes; Z92.3 Personal history of irradiation; Z90.79 Acquired absence of other genital organ(s); Z93.2 Ileostomy status; M25.551 Pain in right hip; Z96.641 Presence of right artificial hip joint
CPT/HCPCS: 36591; 80053; 84153; 85025; 96372; 96402; 99212; A4216; J1642; J3420; J9217; G0463

== ENCOUNTER → 2025-08-23 | Outpatient (CLI) | payer MEDICARE, BC, SELFPAY ==
--- NOTE | 2025-08-23 | XR_ITS ---
Examination: Knee, 3, 3 views Technique: Knee AP, lateral, oblique 3 views Date and time of exam: August 23, 2025, 1258 hours INDICATIONS: Left knee swelling and pain 2 months, knee replacement 3 years ago. FINDINGS: Moderate osteopenia. Total left knee arthroplasty. No fractures. No loosening of the prosthetic components. No cortical bone destruction No patellar dislocation IMPRESSION: Total left knee arthroplasty with satisfactory alignment
== END | disposition home or self-care (01) ==
PROVIDERS: PCP Family Medicine; Referring Provider Nurse Practitioner Family; Visit Provider Nurse Practitioner Family
DX: M25.562 Pain in left knee (principal); Z96.652 Presence of left artificial knee joint
CPT/HCPCS: 73564

== ENCOUNTER 2025-08-30 10:31 | Outpatient (RCR) | payer MEDICARE, BC, SELFPAY ==
[2025-08-19 13:44] LABS: Basophils # (Auto) 0.0 Thou/mm3 (0.0-0.2); Basophils % (Auto) 1 % (0-2.5); Eosinophils # (Auto) 0.2 Thou/mm3 (0.0-0.5); Eosinophils % (Auto) 5 % (0-10); Hematocrit 34.2 % (41.0-53.0); Hemoglobin 11.6 g/dL (13.5-16.0); Immature Granulocytes Auto 0.02 Thou/mm3 (0.00-0.00); Lymphocytes # (Auto) 0.6 Thou/mm3 (1.0-4.8); Lymphocytes % (Auto) 14 % (10-50); Mean Corpuscular HGB Conc 33.9 g/dl (31.0-37.0); Mean Corpuscular Hemoglobin 34.1 pg (25.0-35.0); Mean Corpuscular Volume 101 fL (80-100); Monocytes # (Auto) 0.5 Thou/mm3 (0.0-0.8); Monocytes % (Auto) 11 % (0-12); Neutrophils # (Auto) 2.8 Thou/mm3 (1.8-7.7); Neutrophils % (Auto) 68 % (37-80); Nucleated Red Blood Cell # 0.00 Thou/mm3 (0.00-0.00); Nucleated Red Blood Cell % 0 /100 WBC (0); Platelet Count 204 Thou/mm3 (140-440); RDW Standard Deviation 48.5 fL (35.1-43.9); Red Blood Count 3.40 Miln/mm3 (4.50-5.90); White Blood Count 4.1 Thou/mm3 (3.8-10.6)
[2025-08-19 14:00] LABS: Prostate Specific Antigen 3.41 ng/mL (0-4.00)
[2025-08-19 14:03] LABS: Alanine Aminotransferase < 7 U/L (10-49); Albumin, Serum 4.1 gm/dL (3.4-4.8); Albumin/Globulin Ratio 1.8 (1.2-2.2); Alkaline Phosphatase 111 U/L (46-116); Anion Gap 10 (7-16); Aspartate Amino Transferase 12 U/L (0-34); BUN/Creatinine Ratio 25 Ratio (12-20); Bilirubin,Total 0.4 mg/dL (0.3-1.2); Blood Urea Nitrogen 20 mg/dL (9-23); Calcium 9.4 mg/dL (8.3-10.6); Calcium (Corrected) 9.4 mg/dL (8.5-10.1); Carbon Dioxide 25.5 mMol/L (20.0-31.0); Chloride 107 mMol/L (98-107); Creatinine (Component) 0.8 mg/dL (0.6-1.3); Globulin 2.3 gm/dL (2.3-3.5); Glucose 94 mg/dL (74-106); Osmolality,Calculated 285 (275-295); Potassium 4.4 mMol/L (3.4-5.1); Sodium 142 mMol/L (136-145); Total Protein 6.4 gm/dL (5.7-8.2); eGFR > 60 See Note
[2025-08-26 06:50] LABS: Testosterone,Total* 422 ng/dL (250-1100)
== END 2025-09-11 23:59 | disposition home or self-care (01) ==
LOC: SCTC 10:31
PROVIDERS: Internal Medicine Hematology & Oncology; PCP Family Medicine; Referring Provider Family Medicine; Visit Provider Radiology Therapeutic Radiology
DX: Z51.11 Encounter for antineoplastic chemotherapy (principal); C61 Malignant neoplasm of prostate; C79.51 Secondary malignant neoplasm of bone; G89.3 Neoplasm related pain (acute) (chronic); Z90.79 Acquired absence of other genital organ(s); Z92.3 Personal history of irradiation
CPT/HCPCS: 36591; 80053; 84153; 84403; 85025; 96402; 99213; A4216; J1642; J9217; G0463